=== PATIENT | female | born 1975 | race Two or more races ===

== ENCOUNTER 2021-06-25 23:17 | Emergency (ER) | payer OTHER, SELFPAY ==
--- NOTE | ~2021-06-25 | XR_ITS ---
EXAMINATION: XR CHEST CLINICAL INFORMATION: Cough for 2 weeks COMPARISON: 07.26.2018 TECHNIQUE: Frontal view of the chest was obtained. FINDINGS: Normal symmetric lung volumes. No parenchymal consolidation. No pleural effusion. No pneumothorax. Cardiomediastinal silhouette and pulmonary vascularity are within normal limits. No acute osseous abnormalities. XR/XR chest 1V IMPRESSION: No acute findings
[2021-06-25 23:42] VITALS: BP 138/83; PULSE 94; RESP 18; TEMP 36.6; O2SAT 99; BMI 38.2
[2021-06-26 00:11] LABS: COVID-19 Test Negative (Negative); IDNOW Serial# 9DD0AD1C
[2021-06-26 00:33] LABS: IDNOW Serial# 9DD0AD1C; Strep A Nucleic Acid Negative (Negative)
--- NOTE | 2021-06-26 00:53 | ED.URI ---
HPI - URI/Sore Throat General Chief Complaint: Upper Respiratory Symptoms Stated Complaint: sore throat, chest pain Time Seen by Provider: 06/26/21 00:53 Source: patient Mode of arrival: ambulatory History of Present Illness HPI Narrative: 45-year-old female presents for persistent feeling unwell, sore throat as well as headache. Otherwise, she denies any nausea, vomiting, diarrhea, urinary pain/burning/frequency shortness of breath. She does describes some chest wall discomfort when she coughs which she states has been persistent and nonproductive. She reports complete COVID-19 vaccination with [employer]. Related Data Allergies Allergy/AdvReac Type Severity Reaction Status Date / Time Penicillins [PENICILLINS] Allergy Intermediate RASH Unverified 03/04/20 16:48 penicillin V Allergy Unknown Verified 01/28/13 00:00 Review of Systems Review of Systems: Pertinent positives and negatives as stated in HPI 10 point review of systems is otherwise negative. PMFSH Past Medical History Source: nursing notes reviewed Social History Social History Advance Directives: No Advance Directives Information Provided: Yes Physical Exam Vital Signs: Vital Signs: Last Vital Signs Temp 97.8 F 06/25/21 23:42 Pulse 94 06/25/21 23:42 Resp 18 06/25/21 23:42 BP 138/83 06/25/21 23:42 Pulse Ox 99 06/25/21 23:42 BMI result Body Mass Index 38.2 VITAL SIGNS: Reviewed. GENERAL: Well developed, well nourished, in no acute distress. HEAD: Normocephalic/atraumatic EYES: PERRLA, EOMI EARS: Ext canals without abnormality, TMs non-bulging and non-erythematous NOSE: Nares patent bilateral OROPHARYNX: no oral lesions noted, posterior pharynx clear and non-erythematous without noted tonsillar enlargement/erythema/exudates NECK: Supple, no adenopathy LUNGS: Normal breath sounds. No adventitious sounds or accessory muscle use. SpO2<99> CARDIOVASCULAR: Regular rate and rhythm without noted murmurs ABDOMEN: Soft, non-tender, non-distended with bowel sounds. NEUROLOGIC: Alert and oriented x 4. Course Course Course Narrative: 45-year-old female with history and clinical presentation consistent with likely viral illness, however review of investigations is negative for evidence of COVID-19 or strep pharyngitis infection. Patient was encouraged to saline gargles and to continue to treat her cough with hekj-tss-cbumqkb medications as well as using aarn-wdt-nrjurbx Tylenol/ibuprofen for headache. MDM - URI/Sore Throat Lab Data Labs: Lab Results 06/25/21 06/26/21 Range/Units 23:51 00:17 COVID-19 (PINO) Negative (Negative) COVID-19 Clin Com See Note S. pyogenes GrpA ALSIA Negative (Negative) Discharge Plan Discharge Clinical Impression: Viral infection Patient Disposition: Home, Self-Care Instructions: Viral Syndrome (ED) Additional Instructions: 1. Continue with Tylenol/ibuprofen as needed for headaches, sore throat, temperatures greater than 100.4. 2. Increase fluid intake especially with water and recommend using [id number] NyQuil or similar cough suppressant. 3. Recommend saline gargles, 3 to 4 times a day for sore throat. Return to the ER for worsening symptoms. Referrals: Kari German MD [Primary Care Provider] - 2 days
== END 2021-06-26 01:54 | disposition home or self-care (01) ==
PROVIDERS: Emergency Provider Student in an Organized Health Care Education/Training Program; PCP Internal Medicine
DX: B34.9 Viral infection, unspecified (principal); Z20.822 Contact with and (suspected) exposure to COVID-19; J02.9 Acute pharyngitis, unspecified; R51.9 Headache, unspecified
CPT/HCPCS: 36415; 71045; 87635; 87651; 99283; 99284

== ENCOUNTER 2022-09-26 09:47 | Emergency (ER) | payer OTHER, SELFPAY ==
[2022-09-26 09:49] VITALS: BP 157/68; PULSE 104; RESP 18; TEMP 36.8; O2SAT 98; BMI 37.2
--- NOTE | 2022-09-26 10:48 | ED.GENADULT ---
HPI - General Adult General Chief complaint: General Medical Stated complaint: Ear pain/Sore throat Time Seen by Provider: 09/26/22 10:48 Source: patient Mode of arrival: ambulatory Limitations: no limitations History of Present Illness HPI narrative: Patient is a 47 year old assigned female at with no reported medical history presenting to the emergency department today with a sore throat and bilateral ear pain. Patient states that over the last 2 days she has had bilateral ear pain and a sore throat. Patient denies any dizziness, lightheadedness, abdominal pain, nausea, vomiting, fever, chills, blurry vision, double vision, loss of vision, chest pain, difficulty breathing, shortness of breath, back pain, night sweats, pain with urination, increased urinary frequency, increased urinary urgency, blood in her urine or stool, syncope or a near syncopal episode, recent trauma or falls, bowel incontinence, bladder incontinence, bowel retention, bladder retention, or any other complaints at this time. Onset (ago): day(s) (2) Severity: mild Severity scale (1-10): 3 Relieving factors: none Exacerbating factors: none Associated symptoms: denies other symptoms Treatments prior to arrival: none Related Data Allergies Allergy/AdvReac Type Severity Reaction Status Date / Time Penicillins [PENICILLINS] Allergy Intermediate RASH Unverified 03/04/20 16:48 penicillin V Allergy Unknown Verified 01/28/13 00:00 Review of Systems Constitutional: Constitutional: Reports no additional constitutional complaints, Denies chills, Denies fever(s) and Denies night sweats Eyes: Eyes: Reports no additional eye complaints, Denies blurry vision, Denies change in vision, Denies diplopia, Denies eye discharge, Denies loss of vision and Denies eye pain ENT: Denies dizziness and Reports sore throat Comments: bilateral ear pain Cardiovascular: Cardiovascular: Reports no additional cardiovascular complaints, Denies chest pain, Denies lightheadedness, Denies Loss of Consciousness and Denies dyspnea Respiratory: Respiratory: Reports no additional respiratory complaints and Denies dyspnea Gastrointestinal: Gastrointestinal: Reports no additional gastrointestinal complaints, Denies abdominal pain, Denies melena, Denies hematochezia, Denies change in bowel habits and Denies change in stool character Genitourinary: Genitourinary: Denies hematuria, Denies urinary frequency, Denies dysuria, Denies urinary incontinence, Denies urinary hesitancy and Denies urinary urgency Musculoskeletal: Musculoskeletal: Reports no additional musculoskeletal complaints, Denies numbness and Denies tingling Neurologic: Denies dizziness, Denies loss of vision, Denies numbness and Denies tingling Psychiatric: Psychiatric: Reports no additional psychiatric complaints Endocrine: Endocrine: Reports no additional endocrine complaints Hematologic/Lymphatic: Hematologic/Lymphatic: Reports no additional hematologic/lymphatic complaints Allergic/Immunologic: Allergic/Immunologic: Reports no additional allergic/immunologic complaints [facility] Past Medical History Attestation statement: The following information was validated with the patient. Source: old records reviewed and nursing notes reviewed Social History Social History Alcohol intake: unknown Smoked in Last 30 Days: No Use of substances other than those prescribed or required for medical reasons: Unknown Advance Directives: No Advance Directives Information Provided: No Patient : No Physical Exam ED Vital Signs: Vital Signs - 24 hr 09/26/22 09:49 Temperature 98.2 F Pulse Rate 104 H Respiratory Rate 18 Blood Pressure 157/68 H Pulse Oximetry 98 Oxygen Delivery Method Room Air BMI result Body Mass Index 37.2 Const General: cooperative, no acute distress, alert and awake Nutritional Appearance: well nourished Orientation/consciousness: patient oriented x3 Limitations: no limitations HENMT Head: Yes normal to inspection and Yes atraumatic Ears: hearing grossly normal bilaterally and external ears normal General nose exam: Normal external nose present, no nasal discharge noted and no epistaxis Face and sinus: Yes normal facial exam, No abrasion and No laceration Mouth: Normal oral and palatal mucosa present, no drooling and no muffled voice Throat: Yes posterior oropharynx normal and Yes tonsils normal Eyes General: appearance normal, both eyes and all related structures Periorbital: periorbital findings normal Eyelids: Yes eyelids normal Conjunctivae: conjunctivae normal Pupils: Equal, round and reactive pupils present EOM: EOMs intact bilaterally Neck Neck: Yes normal visual inspection, Yes full ROM and Yes no lymphadenopathy Chest Chest palpation & inspection: normal inspection of the chest Resp Effort & Inspection: normal respiratory effort and able to speak in complete sentences Auscultation: clear to auscultation bilaterally Cardio Rate: regular rate Rhythm: regular rhythm GI Inspection: Yes normal to inspection Palpation (GI): Soft to palpation, not firm, nontender and no guarding Neuro General: patient oriented x3 and moves all extremities Cranial nerves: Yes Equal, round and reactive pupils present Cognition (Neuro): normal cognition Motor exam (neuro): 5/5 motor strength present throughout Sensory Exam: Normal double simultaneous stimulation for sensation Coordination: [id number]-jv-jrwh test normal Extrem General: Yes normal to inspection, Yes full ROM and Yes capillary refill normal Psych Appearance: grossly normal Mental Status: mental status grossly normal Affect: normal affect Attitude: cooperative Thought process: Normal thought process present Thought content: Normal thought content present Insight: Good insight present (Psych) Medical Decision Making Medical Decision Making MDM Narrative: Patient is a 47 year old assigned female at with no reported medical history presenting to the emergency department today with bilateral ear pain and a sore throat. Patient's physical exam was unremarkable. Patient's COVID/Influenza/Strep swabs were negative. I explained my physical exam findings as well as all test results to the patient. I answered all questions asked by the patient. I stressed the importance of the patient taking her medication as prescribed. I stressed the importance of the patient following up with her primary care provider. I stressed the importance of the patient returning to the emergency department immediately if her symptoms were to worsen or if she were to develop any dizziness, shortness of breath, difficulty breathing, chest pain, blurry vision, loss of vision, nausea, vomiting, abdominal pain, fever, chills, back pain, or any other complaints. Patient verbalized agreement and understanding with this treatment plan and discharge. Differential Diagnosis Differential Diagnoses: The differential diagnosis associated with the presentation includes viral illness Lab Data [facility] Lab Attestation statement: I reviewed the patient's lab results. Labs: Lab Results 09/26/22 09/26/22 09/26/22 Range/Units 11:09 11:09 11:09 COVID-19 (PINO) Negative (Negative) COVID-19 Clin Com See Note Influenza Type A (ALISA) Negative (Negative) Influenza Type B (ALISA) Negative (Negative) Influenza A & B Note See Note S. pyogenes GrpA ALISA Negative (Negative) Discharge Plan Discharge Clinical Impression: Viral illness Patient Disposition: Home, Self-Care Instructions: Viral Syndrome (ED) Additional Instructions: I recommend starting a daily anti-histamine like loratidine. Follow up with your primary care provider. Return to the emergency department immediately if your symptoms worsen or if you develop any dizziness, shortness of breath, difficulty breathing, chest pain, blurry vision, loss of vision, nausea, vomiting, abdominal pain, fever, chills, back pain, or any other complaints. Referrals: Kari German MD [Primary Care Provider] - Stand Alone Forms: Work/School Release Interventions: ED Discharge Assessment Last Done: 09/26/22 12:12 Discharge Date/Time: 09/26/22 12:12 Print Language: Chilean
[2022-09-26 11:38] LABS: COVID-19 Test Negative (Negative); IDNOW Serial# 55D5AD1C; IDNOW Serial# BCCEAD1C; Influenza A Negative (Negative); Influenza B2 Negative (Negative)
[2022-09-26 11:52] LABS: IDNOW Serial# 6674DD1D; Strep A Nucleic Acid Negative (Negative)
== END 2022-09-26 12:12 | disposition home or self-care (01) ==
PROVIDERS: Physician Assistant Medical; Emergency Provider Emergency Medicine; PCP Internal Medicine
DX: B34.9 Viral infection, unspecified (principal); J02.8 Acute pharyngitis due to other specified organisms; H92.03 Otalgia, bilateral; Z20.822 Contact with and (suspected) exposure to COVID-19; Z20.828 Contact with and (suspected) exposure to other viral communicable diseases
CPT/HCPCS: 87502; 87635; 87651; 99283; 99284

== ENCOUNTER 2022-11-03 00:08 | Emergency (ER) | payer OTHER, SELFPAY ==
--- NOTE | 2022-11-03 | ECG_ITS ---
Test Reason : CHEST PAIN Blood Pressure : / mmHG Vent. Rate : 092 BPM Atrial Rate : 092 BPM P-R Int : 134 ms QRS Dur : 088 ms QT Int : 360 ms P-R-T Axes : 061 013 016 degrees QTc Int : 445 ms Normal sinus rhythm Normal ECG When compared with ECG of 26-JUL-2018 00:08, Criteria for Anterior infarct are no longer Present Nonspecific T wave abnormality no longer evident in Anterior leads Referred By: Generic ED Physician Electronically Signed By:Laron Valentin
--- NOTE | ~2022-11-03 | XR_ITS ---
EXAMINATION: XR CHEST CLINICAL INFORMATION: Chest pain COMPARISON: 06/26/2021 TECHNIQUE: 2 views of the chest were obtained. FINDINGS: Normal symmetric lung volumes. No parenchymal consolidation. No pleural effusion. No pneumothorax. Cardiomediastinal silhouette and pulmonary vascularity are within normal limits. No acute osseous abnormalities. XR/XR chest 2V IMPRESSION: No acute findings
[2022-11-03 00:14] VITALS: BP 167/84; PULSE 102; RESP 20; TEMP 36.2; O2SAT 100; BMI 38.7
[2022-11-03 00:34] LABS: Glucose, Whole Blood 193 mg/dL (60-115)
[2022-11-03 00:37] LABS: Basophils Percent Auto 0.3 % (0-2); Eosinophils Absolute Auto 0.2 X10*3/uL (0.0-0.4); Eosinophils Percent Auto 2.6 % (0-4); Hematocrit 40.2 % (37.0-47.0); Hemoglobin 12.9 g/dl (12.0-16.0); Imm Gran Abs Auto 0.02 X10*3/uL (0.00-0.03); Imm Gran Pct Auto 0.3 % (0.0-0.4); Lymphocytes Absolute Auto 2.6 X10*3/uL (1.2-4.9); Lymphocytes Percent Auto 35.7 % (20-40); MANUAL DIFF FLAG NO; Mean Corpuscular HGB Conc 32.1 g/dl (31.0-35.0); Mean Corpuscular Volume 84.1 fL (80.0-98.0); Mean Platelet Volume 9.5 fL (9.4-12.3); Monocytes Absolute Auto 0.4 X10*3/uL (0.1-1.2); Monocytes Percent Auto 5.2 % (2-11); Neutrophils Absolute Auto 4.1 x10*3/uL (2.0-8.3); Neutrophils Percent Auto 55.9 % (45-73); Platelet Count 236 X10*3/uL (160-400); Red Blood Count 4.78 X10*6/uL (4.20-5.50); Red Cell Distribution Width 13.8 % (11.0-16.0); White Blood Count 7.3 X10*3/uL (4.8-10.8)
[2022-11-03 00:46] VITALS: BP 118/78; PULSE 96; RESP 16; O2SAT 99
--- NOTE | 2022-11-03 00:49 | PC.NURSE ---
Pt ca&ox3, no signs of distress. Pt denies pain and sob but reports chest pressure/heaviness. Spouse at bedside. Pt taken to CT scan. Will continue to monitor.
[2022-11-03 00:54] LABS: Anion Gap 15 (12-20); Blood Urea Nitrogen 22 mg/dL (9-16); Calcium 9.3 mg/dL (8.4-10.2); Carbon Dioxide 27 mmol/L (22-29); Chloride 104 mmol/L (96-108); Creatinine Clr Calc Pharmacy 96.6; Estimated Glomerular Filt Rate > 60; Glucose Random 174 mg/dL (60-115); Potassium 4.7 mmol/L (3.3-5.1); Sodium 141 mmol/L (135-145)
--- NOTE | 2022-11-03 01:03 | PC.NURSE ---
Pt ca&ox3, ambulates with steady gait. No signs of distress. Pt requesting to use the bathroom. Urine sample req. Will continue to monitor.
[2022-11-03 01:06] LABS: Troponin-I High Sensitivity < 2.7 ng/L (<3.5-17.0)
--- NOTE | 2022-11-03 01:15 | PC.NURSE ---
Urine sample collected. No signs of distress. Pt ca&ox3. Will continue to monitor.
[2022-11-03 01:19] LABS: Appearance Urine Clear; Color Urine Yellow; Glucose Urine UA Negative (Negative); Leukocyte Esterase Urine Negative (Negative); Nitrite Urine Negative (Negative); PH 6.5 (5.0-9.0); Specific Gravity - Urine >= 1.030 (1.005-1.025); Urine Blood Negative (Negative); Urine Ketones Trace mg/dL (Negative); Urine Protein Negative (Neg-Trace)
[2022-11-03 01:22] LABS: Bacteria Urine None Seen (None Seen); Hyaline Casts Urine 0-2 /LPF (0-2); RBC Urine 0-2 /HPF (0-2); Squamous Epithelial Cell Urine 0-2 /HPF (0-2); WBC Urine 0-5 /HPF (0-5)
--- NOTE | 2022-11-03 01:33 | ED.CHESTPAIN ---
HPI - Chest Pain General Chief Complaint: Chest Pain Stated Complaint: Chest pain, diabetic Time Seen by Provider: 11/03/22 00:57 History of Present Illness HPI narrative: Patient is a 47-year-old female presents today with having chest pain. The chest pain is constant. It is over the left chest. It is dull in nature and is not related to shortness of breath. No diaphoresis. Patient has a history of diabetes. History of hypertension. History of having a stress test done 2 years ago which was grossly negative. No fever no chills. No coughing or congestion upper respiratory symptoms. No diaphoresis. Patient is from home. Not made worse with position. Not made worse with touch. Not worse with deep breath. Related Data Allergies Allergy/AdvReac Type Severity Reaction Status Date / Time Penicillins [PENICILLINS] Allergy Intermediate RASH Verified 11/03/22 00:14 penicillin V Allergy Unknown Rash Verified 11/03/22 00:14 Review of Systems Review of Systems: Positive chest pain Yes all other systems are reviewed and are negative [facility] Past Medical History Attestation statement: The following information was validated with the patient. Social History Social History Alcohol intake: unknown Smoked in Last 30 Days: No Use of substances other than those prescribed or required for medical reasons: No Advance Directives: No Advance Directives Information Provided: Yes Patient : No Physical Exam Vital Signs: Vital Signs: Last Vital Signs Temp 97.2 F 11/03/22 00:14 Pulse 96 11/03/22 00:46 Resp 16 11/03/22 00:46 BP 118/78 11/03/22 00:46 Pulse Ox 99 11/03/22 00:46 O2 Del Method Room Air 11/03/22 00:46 BMI result Body Mass Index 38.7 Appearance: Alert. Oriented X3. No acute distress. Eyes: Pupils equal, round and reactive to light. ENT: Pharynx normal. Neck: Normal inspection. Neck supple. No lymph nodes noted. No crepitus CVS: Normal heart rate and rhythm. Pulses normal. Normal S1 and S2 Respiratory: No respiratory distress. Breath sounds normal. No Wheezing. No rales Abdomen: Soft and nontender. No rigidity. No distention. good BS x4 Skin: Skin warm and dry. Normal skin color. Normal skin turgor. Extremities: No lower extremity edema. Neurovascular intact to all extremities. No Lacerations. No Rash Neuro: Oriented X 3. No motor deficit. No sensory deficit. Moving all extermities. No slurred speech Medical Decision Making Medical Decision Making [facility] Narrative: Well-appearing not acute distress. Patient's chest pain atypical for ACS. She is 47 years old he does have a history of diabetes and high blood pressure. Patient's cardiac enzymes are negative. My interpretation patient's EKG showed a sinus pattern heart rate is 80 NH QRS QT within normal limits is no acute ST segment elevation. Patient's heart score is a 3. Will have patient closely follow up on an outpatient basis. A 2nd set of troponin will be drawn. Patient's chest x-ray showed no pneumonia no pneumothorax. History not consistent with PE. History not consistent with having reflux. She is currently in stable condition Do sets of heart enzymes are negative. Making patient's case for ACS even less likely. Will discharge patient home. Currently in stable condition. Differential Diagnosis Differential Diagnoses: The differential diagnosis associated with the presentation includes ACS, PE, pneumonia, pneumothorax Lab Data [facility] Lab Attestation statement: I reviewed the patient's lab results. 11/03/22 00:32 11/03/22 00:32 Labs: Lab Results 11/03/22 11/03/22 11/03/22 Range/Units 00:29 00:32 00:32 WBC 7.3 (4.8-10.8) X10*3/uL RBC 4.78 (4.20-5.50) X10*6/uL Hgb 12.9 (12.0-16.0) g/dl Hct 40.2 (37.0-47.0) % MCV 84.1 (80.0-98.0) fL MCH 27.0 (27.0-33.0) pg MCHC 32.1 (31.0-35.0) g/dl RDW 13.8 (11.0-16.0) % Plt Count 236 (160-400) X10*3/uL MPV 9.5 (9.4-12.3) fL Immature Gran % (Auto) 0.3 (0.0-0.4) % Neut % (Auto) 55.9 (45-73) % Lymph % (Auto) 35.7 (20-40) % Henderson % (Auto) 5.2 (2-11) % Eos % (Auto) 2.6 (0-4) % Baso % (Auto) 0.3 (0-2) % Lymph # (Auto) 2.6 (1.2-4.9) X10*3/uL Henderson # (Auto) 0.4 (0.1-1.2) X10*3/uL Eos # (Auto) 0.2 (0.0-0.4) X10*3/uL Baso # (Auto) 0.0 (0.0-0.2) X10*3/uL Abs Immat Gran (auto) 0.02 (0.00-0.03) X10*3/uL Absolute Neuts (auto) 4.1 (2.0-8.3) x10*3/uL Absolute Nucleated RBC 0.000 (0.0-0.012) X10*3/uL Nucleated RBC % (auto) 0.0 (0.0-0.2) /100WBC Sodium 141 (135-145) mmol/L Potassium 4.7 (3.3-5.1) mmol/L Chloride 104 (96-108) mmol/L Carbon Dioxide 27 (22-29) mmol/L Anion Gap 15 (12-20) BUN 22 H (9-16) mg/dL Creatinine 0.88 (0.5-1.4) mg/dL Estim Creat Clear Calc 96.6 Estimated GFR > 60 POC Glucose 193 H (60-115) mg/dL Random Glucose 174 H (60-115) mg/dL Calcium 9.3 (8.4-10.2) mg/dL Troponin I High Sens (<3.5-17.0) ng/L Urine Color Urine Appearance Urine pH (5.0-9.0) Ur Specific Thurston (1.005-1.025) Urine Protein (Neg-Trace) mg/dL Urine Glucose (UA) (Negative) mg/dL Urine Ketones (Negative) mg/dL Urine Blood (Negative) Urine Nitrite (Negative) Ur Leukocyte Esterase (Negative) Urine RBC (0-2) /HPF Urine WBC (0-5) /HPF Ur Squamous Epith Cells (0-2) /HPF Urine Bacteria (None Seen) Hyaline Casts (0-2) /LPF 05/19/23 05/19/23 05/19/23 Range/Units 00:32 01:11 02:08 WBC (4.8-10.8) X10*3/uL RBC (4.20-5.50) X10*6/uL Hgb (12.0-16.0) g/dl Hct (37.0-47.0) % MCV (80.0-98.0) fL MCH (27.0-33.0) pg MCHC (31.0-35.0) g/dl RDW (11.0-16.0) % Plt Count (160-400) X10*3/uL MPV (9.4-12.3) fL Immature Gran % (Auto) (0.0-0.4) % Neut % (Auto) (45-73) % Lymph % (Auto) (20-40) % Henderson % (Auto) (2-11) % Eos % (Auto) (0-4) % Baso % (Auto) (0-2) % Lymph # (Auto) (1.2-4.9) X10*3/uL Henderson # (Auto) (0.1-1.2) X10*3/uL Eos # (Auto) (0.0-0.4) X10*3/uL Baso # (Auto) (0.0-0.2) X10*3/uL Abs Immat Gran (auto) (0.00-0.03) X10*3/uL Absolute Neuts (auto) (2.0-8.3) x10*3/uL Absolute Nucleated RBC (0.0-0.012) X10*3/uL Nucleated RBC % (auto) (0.0-0.2) /100WBC Sodium (135-145) mmol/L Potassium (3.3-5.1) mmol/L Chloride (96-108) mmol/L Carbon Dioxide (22-29) mmol/L Anion Gap (12-20) BUN (9-16) mg/dL Creatinine (0.5-1.4) mg/dL Estim Creat Clear Calc Estimated GFR POC Glucose (60-115) mg/dL Random Glucose (60-115) mg/dL Calcium (8.4-10.2) mg/dL Troponin I High Sens < 2.7 < 2.7 (<3.5-17.0) ng/L Urine Color Yellow Urine Appearance Clear Urine pH 6.5 (5.0-9.0) Ur Specific Thurston >= 1.030 H (1.005-1.025) Urine Protein Negative (Neg-Trace) mg/dL Urine Glucose (UA) Negative (Negative) mg/dL Urine Ketones Trace (Negative) mg/dL Urine Blood Negative (Negative) Urine Nitrite Negative (Negative) Ur Leukocyte Esterase Negative (Negative) Urine RBC 0-2 (0-2) /HPF Urine WBC 0-5 (0-5) /HPF Ur Squamous Epith Cells 0-2 (0-2) /HPF Urine Bacteria None Seen (None Seen) Hyaline Casts 0-2 (0-2) /LPF Independent Interpretation I performed an independent interpretation of an: EKG and Plain X-Ray Interpretation: Sinus rhythm heart rate is 80 NH QRS QT within normal limits is no acute ST segment elevation. Chest x-ray is grossly negative for pneumonia pneumothorax Chronic Conditions Patient?s care impacted by: Diabetes and Hypertension Discharge Plan Discharge Clinical Impression: Chest pain Patient Disposition: Home, Self-Care Instructions: Chest Pain (ED) Referrals: Laron Valentin MD [Physician] - 11/06/22
--- NOTE | 2022-11-03 02:30 | PC.NURSE ---
Pt resting comfortably. No signs of distress. Spouse at bedside. Will continue to monitor.
[2022-11-03 02:37] LABS: Troponin-I High Sensitivity < 2.7 ng/L (<3.5-17.0)
--- NOTE | 2022-11-03 03:41 | PC.NURSE ---
Pt sleeping comfortably, no signs of distress. Will continue to monitor.
== END 2022-11-03 04:08 | disposition home or self-care (01) ==
PROVIDERS: Emergency Provider Emergency Medicine Emergency Medical Services; PCP Internal Medicine
DX: R07.89 Other chest pain (principal); E11.9 Type 2 diabetes mellitus without complications; I10 Essential (primary) hypertension; Z79.899 Other long term (current) drug therapy
CPT/HCPCS: 36415; 71046; 80048; 81001; 82947; 84484; 85025; 93005; 96360; 96361; 99284; 99285

== ENCOUNTER 2022-11-12 00:48 | Emergency (ER) | payer OTHER, SELFPAY ==
--- NOTE | ~2022-11-12 | XR_ITS ---
EXAMINATION: XR CHEST CLINICAL INFORMATION: Right lower chest discomfort. COMPARISON: 11/03/2022 TECHNIQUE: 2 views of the chest were obtained. FINDINGS: No significant abnormality is noted involving the heart, lungs, mediastinum, bony thorax or soft tissues. XR/XR chest 2V IMPRESSION: Unremarkable examination.
[2022-11-12 00:54] VITALS: BP 143/93; PULSE 100; RESP 18; TEMP 36.4; O2SAT 98; BMI 38.7
--- NOTE | 2022-11-12 01:23 | ED.GENADULT ---
HPI - General Adult General Chief complaint: Abdominal Pain Stated complaint: Pain on right side mid back Time Seen by Provider: 11/12/22 01:10 Source: patient Mode of arrival: ambulatory History of Present Illness HPI narrative: 47-year-old female who was seen here recently, 11/03, presents with 5 days of right posterior chest discomfort that worsens with deep inspiration and coughing but patient denies any traumatic injury or falls and endorses a previous history at [facility] where in she reports 3 small incisions in the anterior abdomen that sounds like laparoscopic surgery with gallbladder related but patient does not know whether not she had her gallbladder removed. This in discomfort that she has been experiencing radiates from the right posterior are around to the anterior aspect and not associated with any fever, chills a patient states she has had some nausea. Otherwise, she denies any changes in appetite has continued to pass flatus and have regular bowel movements and denies any urinary pain/burning/frequency. Related Data Previous Rx's Medication Instructions Recorded ketorolac 10 mg tablet 10 mg PO Q6H PRN pain 5 days #20 11/12/22 tabs Allergies Allergy/AdvReac Type Severity Reaction Status Date / Time Penicillins [PENICILLINS] Allergy Intermediate RASH Verified 11/03/22 00:14 penicillin V Allergy Unknown Rash Verified 11/03/22 00:14 Review of Systems Review of Systems: Pertinent positives and negatives as stated in HPI [facility] Past Medical History Source: nursing notes reviewed Social History Social History Alcohol intake: current Alcohol intake frequency: holidays/special occasions only Smoked in Last 30 Days: No Use of substances other than those prescribed or required for medical reasons: No Advance Directives: No Advance Directives Information Provided: Yes Patient : No Physical Exam ED Vital Signs: Vital Signs - 24 hr 11/12/22 00:54 Temperature 97.5 F Pulse Rate 100 Respiratory Rate 18 Blood Pressure 143/93 H Pulse Oximetry 98 Oxygen Delivery Method Room Air BMI result Body Mass Index 38.7 VITAL SIGNS: Reviewed. GENERAL: Well developed, well nourished, in no acute distress. HEAD: Normocephalic/atraumatic EYES: PERRLA, EOMI EARS: Ext canals without abnormality NOSE: Nares patent bilateral OROPHARYNX: no oral lesions noted, posterior pharynx clear NECK: Supple, no adenopathy LUNGS: Normal breath sounds. No adventitious sounds or accessory muscle use. SpO2<98> CARDIOVASCULAR: Regular rate and rhythm without noted murmurs ABDOMEN: Soft, non-tender, non-distended with bowel sounds, no CVA tenderness, soft tissue tenderness on palpation without appreciation of mass. MUSCULOSKELETAL: No tenderness, deformities, or effusions noted on gross inspection. EXTREMITIES: No cyanosis, clubbing or edema. SKIN: Inspection of the skin reveals no rashes NEUROLOGIC: Alert and oriented x 4. Strength and sensation to light touch were grossly intact x 4. Medical Decision Making Medical Decision Making MDM Narrative: 47-year-old female without evidence of infectious etiology, has had the discomfort for for 5 days, no bowel or bladder symptoms I suspect that this is musculoskeletal in nature but will pursue urinalysis/U preg as well as a two-view chest x-ray and likely follow that with combination analgesics and instructions for patient to follow-up with her primary care provider. She recently had laboratory workup on 11/03 that time all lab work appeared to be well within normal limits. I reviewed all investigations and my interpretation is that this is likely musculoskeletal, all results discussed with patient bedside she was otherwise discharged home in stable condition. Differential Diagnosis Please see the discussion above Lab Data Please see the discussion above Labs: Lab Results 11/12/22 11/12/22 Range/Units 01:24 01:24 Urine Color Yellow Urine Appearance Cloudy Urine pH 6.0 (5.0-9.0) Ur Specific [place] >= 1.030 H (1.005-1.025) Urine Protein Negative (Neg-Trace) mg/dL Urine Glucose (UA) Negative (Negative) mg/dL Urine Ketones Trace (Negative) mg/dL Urine Blood Negative (Negative) Urine Nitrite Negative (Negative) Ur Leukocyte Esterase Negative (Negative) Urine Test NEGATIVE (NEGATIVE) Radiology Impression Radiologist Impression: My interpretation is in agreement with radiology's impression External Record Review External record reviewed: Prior outpatient labs Chronic Conditions Patient?s care impacted by: Diabetes Discharge Plan Discharge Clinical Impression: Right flank pain, Musculoskeletal pain Patient Disposition: Home, Self-Care Instructions: Musculoskeletal Pain (ED), Flank Pain (ED) Additional Instructions: 1. Tylenol 1000 mg, orally, every 6 hours as needed for pain control. Do not exceed 4000 mg within 24 hours. 2. Lidocaine patch, apply to area of maximal tenderness as directed on the outside packaging. 3. Continue drink plenty of fluids and follow-up with your primary care provider on Sunday. Return to the ER for any worsening of symptoms. Prescriptions: New ketorolac 10 mg tablet 10 mg PO Q6H PRN (Reason: pain) 5 Days Qty: 20 0RF Rx Instructions: Patient received Toradol in the emergency room. Referrals: Kari German MD [Primary Care Provider] -
[2022-11-12 01:35] LABS: Appearance Urine Cloudy; Color Urine Yellow; Glucose Urine UA Negative (Negative); Leukocyte Esterase Urine Negative (Negative); Nitrite Urine Negative (Negative); Specific Gravity - Urine >= 1.030 (1.005-1.025); Urine Blood Negative (Negative); Urine Ketones Trace mg/dL (Negative); Urine Protein Negative (Neg-Trace)
[2022-11-12 01:38] LABS: UPreg QC Valid YES; Urine Pregnancy NEGATIVE (NEGATIVE)
[2022-11-12] MEDS: Acetaminophen 325 MG TABLET 975 MG PO (03:03)
[2022-11-12] MEDS: Lidocaine 4 % Patch ADH..PATCH 1 PATCH TRANSDERMA (03:04)
[2022-11-12] MEDS: Ketorolac Tromethamine 15 MG/ML VIAL IM (03:04)
== END 2022-11-12 03:11 | disposition home or self-care (01) ==
PROVIDERS: Emergency Provider Student in an Organized Health Care Education/Training Program; PCP Internal Medicine
DX: R07.89 Other chest pain (principal); M54.50 Low back pain, unspecified; M79.10 Myalgia, unspecified site; Z79.899 Other long term (current) drug therapy
CPT/HCPCS: 71046; 81003; 81025; 96372; 99284; J1885

== ENCOUNTER 2023-04-29 23:22 | Emergency (ER) | payer OTHER, SELFPAY ==
[2023-04-29 23:32] VITALS: BP 151/81; PULSE 100; RESP 18; TEMP 36.6; O2SAT 96; BMI 38.3
[2023-04-29 23:36] LABS: Glucose, Whole Blood 175 mg/dL (60-115)
[2023-04-30 00:22] VITALS: BP 125/77; PULSE 97; RESP 14; TEMP 36.8; O2SAT 98
[2023-04-30 00:43] LABS: MANUAL DIFF FLAG NO
[2023-04-30 00:51] LABS: Basophils Percent Auto 0.4 % (0-2); Eosinophils Absolute Auto 0.2 X10*3/uL (0.0-0.4); Eosinophils Percent Auto 2.2 % (0-4); Hemoglobin 12.5 g/dl (12.0-16.0); Imm Gran Abs Auto 0.04 X10*3/uL (0.00-0.03); Imm Gran Pct Auto 0.5 % (0.0-0.4); Lymphocytes Absolute Auto 2.4 X10*3/uL (1.2-4.9); Lymphocytes Percent Auto 31.4 % (20-40); Mean Corpuscular HGB Conc 32.1 g/dl (31.0-35.0); Mean Corpuscular Hemoglobin 26.5 pg (27.0-33.0); Mean Corpuscular Volume 82.6 fL (80.0-98.0); Mean Platelet Volume 9.6 fL (9.4-12.3); Monocytes Absolute Auto 0.3 X10*3/uL (0.1-1.2); Monocytes Percent Auto 4.1 % (2-11); Neutrophils Absolute Auto 4.7 x10*3/uL (2.0-8.3); Neutrophils Percent Auto 61.4 % (45-73); Platelet Count 233 X10*3/uL (160-400); Red Blood Count 4.72 X10*6/uL (4.20-5.50); Red Cell Distribution Width 13.9 % (11.0-16.0); White Blood Count 7.6 X10*3/uL (4.8-10.8)
[2023-04-30 01:00] LABS: Alanine Aminotransferase 15 U/L (0-31); Albumin Level 3.8 g/dL (3.5-5.0); Alkaline Phosphatase 110 U/L (39-117); Anion Gap 14 (12-20); Aspartate Amino Transferase 14 U/L (5-31); Bilirubin Total 0.2 mg/dL (0.0-1.0); Blood Urea Nitrogen 22 mg/dL (9-16); Calcium 9.4 mg/dL (8.4-10.2); Carbon Dioxide 25 mmol/L (22-29); Chloride 106 mmol/L (96-108); Creatinine Clr Calc Pharmacy 97.1; Estimated Glomerular Filt Rate > 60; Glucose Random 99 mg/dL (60-115); Potassium 3.5 mmol/L (3.3-5.1); Sodium 141 mmol/L (135-145)
[2023-04-30] MEDS: Dextrose 5 % 1,000 ML 125 ML IVCONT (01:18)
--- NOTE | 2023-04-30 02:15 | ED_ITS ---
HPI - General Adult General Chief complaint: General Medical Stated complaint: Took wrong insulin Time Seen by Provider: 04/30/23 00:26 Source: patient Mode of arrival: ambulatory Limitations: no limitations History of Present Illness HPI narrative: 47 yld female with pmh of DM presents to the ED for taking 34 units of lispro at 11:40pm last night. Patient suppossed to take lantus 34 at night, but instead she took the lispro. Patient is asympomatic and steve any symtposm. Related Data Previous Rx's Medication Instructions Recorded ketorolac 10 mg tablet 10 mg PO Q6H PRN pain 5 days #20 11/12/22 tabs Allergies Allergy/AdvReac Type Severity Reaction Status Date / Time Penicillins [PENICILLINS] Allergy Intermediate RASH Verified 11/03/22 00:14 penicillin V Allergy Unknown Rash Verified 11/03/22 00:14 Review of Systems 2 Review of Systems: 34 units of lispro Yes all other systems are reviewed and are negative [facility] Social History Social History Alcohol intake: current Alcohol intake frequency: holidays/special occasions only Smoked in Last 30 Days: No Use of substances other than those prescribed or required for medical reasons: No Advance Directives: No Advance Directives Information Provided: Yes Physical Exam ED Vital Signs: Vital Signs - 24 hr 04/29/23 23:32 04/30/23 00:22 04/30/23 02:37 Temperature 97.8 F 98.2 F 98.0 F Pulse Rate 100 97 97 Respiratory Rate 18 14 18 Blood Pressure 151/81 H 125/77 102/50 L Pulse Oximetry 96 98 96 Oxygen Delivery Method Room Air Room Air Room Air 04/30/23 05:27 Temperature 97.9 F Pulse Rate 97 Respiratory Rate 18 Blood Pressure 140/77 H Pulse Oximetry 98 Oxygen Delivery Method Room Air BMI result Body Mass Index 38.3 Const General: cooperative, healthy appearing, comfortable, no acute distress, well developed, alert, awake and Physically active Orientation/consciousness: oriented to person, oriented to place, oriented to time and patient oriented x3 HENMT Head: Yes normal to inspection, Yes No palpable skull fracture present, Yes normocephalic and Yes atraumatic Eyes General: appearance normal, both eyes and all related structures Neck Neck: Yes normal visual inspection, Yes full ROM, Yes no lymphadenopathy, Yes no meningeal signs, Yes trachea midline, Yes supple, No anterior neck swelling and No tender Chest Chest palpation & inspection: normal inspection of the chest and normal palpation of entire chest wall Resp Effort & Inspection: normal respiratory effort and able to speak in complete sentences Auscultation: clear to auscultation bilaterally Cardio Jugular venous distension: no JVD Heart sounds: S1 normal heart sound present and S2 normal heart sound present GI Inspection: Yes normal to inspection Palpation (GI): Soft to palpation, not firm, nontender, no guarding and not rigid General: No CVA tenderness and Yes no CVA tenderness Back/Spine/Pelvis Back: no CVA tenderness, No CVA tenderness and No back tenderness Skin General skin exam: no rashes or lesions noted, elasticity normal and turgor normal Neuro General: oriented to person, oriented to place, oriented to time, patient oriented x3, gait normal, tone normal, moves all extremities, Normal light touch and pain sensation, no meningeal signs, no focal motor deficits, CN's II-XI intact bilaterally and normal sensation to monofilament Extrem General: Yes normal to inspection and Yes full ROM Psych Appearance: grossly normal, well kempt and not disheveled Medications Administered Discontinued Medications Generic Name Dose Route Start Last Admin Trade Name Freq PRN Reason Stop Dose Admin Dextrose 1,000 mls @ 125 mls/hr 04/30/23 01:15 04/30/23 01:18 D5w IVCONT 04/30/23 09:14 125 mls/hr .Q8H STA Administration Medical Decision Making Medical Decision Making [facility] Narrative: 47 yold female with pmh of DM presents to the ED for 34 units of lipsro by accident instead of 34 units of lantus. Patient presently is asymptomatic. patient glucose on patinet's arm monitor in the ED read 75. Blood glucose states 99. patient placed Given IV D5% IV. Spoke with Dr. Calle who states lispro is short acting and mostl liekly would not need admission. He recommends watching patient in the ED for at least 4 hours. Patient given food to eat. Patient is not in distress. Differential Diagnosis Differential Diagnoses: The differential diagnosis associated with the presentation includes (hypoglycemia induced by lipsro) Admission/Observation Consideration of admission/observation: Escalation of care including admission/observation considered Consult Healthcare Provider Management of the patient was discussed with: Hospitalist (Dr. Calle) Lab Data MDM Lab Attestation statement: I reviewed the patient's lab results. 04/30/23 00:39 04/30/23 00:39 Labs: Lab Results 04/29/23 04/30/23 04/30/23 Range/Units 23:32 00:39 02:39 WBC 7.6 (4.8-10.8) X10*3/uL RBC 4.72 (4.20-5.50) X10*6/uL Hgb 12.5 (12.0-16.0) g/dl Hct 39.0 (37.0-47.0) % MCV 82.6 (80.0-98.0) fL MCH 26.5 L (27.0-33.0) pg MCHC 32.1 (31.0-35.0) g/dl RDW 13.9 (11.0-16.0) % Plt Count 233 (160-400) X10*3/uL MPV 9.6 (9.4-12.3) fL Immature Gran % (Auto) 0.5 H (0.0-0.4) % Neut % (Auto) 61.4 (45-73) % Lymph % (Auto) 31.4 (20-40) % Sac % (Auto) 4.1 (2-11) % Eos % (Auto) 2.2 (0-4) % Baso % (Auto) 0.4 (0-2) % Lymph # (Auto) 2.4 (1.2-4.9) X10*3/uL Sac # (Auto) 0.3 (0.1-1.2) X10*3/uL Eos # (Auto) 0.2 (0.0-0.4) X10*3/uL Baso # (Auto) 0.0 (0.0-0.2) X10*3/uL Abs Immat Gran (auto) 0.04 H (0.00-0.03) X10*3/uL Absolute Neuts (auto) 4.7 (2.0-8.3) x10*3/uL Absolute Nucleated RBC 0.000 (0.0-0.012) X10*3/uL Nucleated RBC % (auto) 0.0 (0.0-0.2) /100WBC Sodium 141 (135-145) mmol/L Potassium 3.5 D (3.3-5.1) mmol/L Chloride 106 (96-108) mmol/L Carbon Dioxide 25 (22-29) mmol/L Anion Gap 14 (12-20) BUN 22 H (9-16) mg/dL Creatinine 0.84 (0.5-1.4) mg/dL Estim Creat Clear Calc 97.1 Estimated GFR > 60 POC Glucose 175 H 137 H (60-115) mg/dL Random Glucose 99 (60-115) mg/dL Calcium 9.4 (8.4-10.2) mg/dL Total Bilirubin 0.2 (0.0-1.0) mg/dL AST 14 (5-31) U/L ALT 15 (0-31) U/L Alkaline Phosphatase 110 (39-117) U/L Total Protein 7.0 (6.5-8.0) g/dL Albumin 3.8 (3.5-5.0) g/dL 04/30/23 04/30/23 Range/Units 04:06 05:31 WBC (4.8-10.8) X10*3/uL RBC (4.20-5.50) X10*6/uL Hgb (12.0-16.0) g/dl Hct (37.0-47.0) % MCV (80.0-98.0) fL MCH (27.0-33.0) pg MCHC (31.0-35.0) g/dl RDW (11.0-16.0) % Plt Count (160-400) X10*3/uL MPV (9.4-12.3) fL Immature Gran % (Auto) (0.0-0.4) % Neut % (Auto) (45-73) % Lymph % (Auto) (20-40) % Sac % (Auto) (2-11) % Eos % (Auto) (0-4) % Baso % (Auto) (0-2) % Lymph # (Auto) (1.2-4.9) X10*3/uL Sac # (Auto) (0.1-1.2) X10*3/uL Eos # (Auto) (0.0-0.4) X10*3/uL Baso # (Auto) (0.0-0.2) X10*3/uL Abs Immat Gran (auto) (0.00-0.03) X10*3/uL Absolute Neuts (auto) (2.0-8.3) x10*3/uL Absolute Nucleated RBC (0.0-0.012) X10*3/uL Nucleated RBC % (auto) (0.0-0.2) /100WBC Sodium (135-145) mmol/L Potassium (3.3-5.1) mmol/L Chloride (96-108) mmol/L Carbon Dioxide (22-29) mmol/L Anion Gap (12-20) BUN (9-16) mg/dL Creatinine (0.5-1.4) mg/dL Estim Creat Clear Calc Estimated GFR POC Glucose 161 H 182 H (60-115) mg/dL Random Glucose (60-115) mg/dL Calcium (8.4-10.2) mg/dL Total Bilirubin (0.0-1.0) mg/dL AST (5-31) U/L ALT (0-31) U/L Alkaline Phosphatase (39-117) U/L Total Protein (6.5-8.0) g/dL Albumin (3.5-5.0) g/dL External Record Review External record reviewed: Other (Prior ED visits) Discharge Plan Discharge Clinical Impression: Accidental drug ingestion, Hypoglycemia due to insulin Patient Disposition: Home, Self-Care Instructions: Hypoglycemia in a Person with Diabetes (ED) Additional Instructions: Please follow-up with your primary care. call him tomorrow to make him aware of accidental ingestion of Lispro 34 units. return to the ED immediately for any nausea, vomiting, cold sweats, dizziness, seizure, altered mental status, or any other concerning symptoms. Prescriptions: No Action ketorolac 10 mg tablet 10 mg PO Q6H PRN (Reason: pain) 5 Days Qty: 20 0RF Rx Instructions: Patient received Toradol in the emergency room. Interventions: ED Discharge Assessment Last Done: 04/30/23 05:51 Discharge Date/Time: 04/30/23 05:52 Print Language: Cymro
[2023-04-30 02:37] VITALS: BP 102/50; PULSE 97; RESP 18; TEMP 36.7; O2SAT 96
[2023-04-30 02:43] LABS: Glucose, Whole Blood 137 mg/dL (60-115)
[2023-04-30 04:09] LABS: Glucose, Whole Blood 161 mg/dL (60-115)
[2023-04-30 05:27] VITALS: BP 140/77; PULSE 97; RESP 18; TEMP 36.6; O2SAT 98
[2023-04-30 05:34] LABS: Glucose, Whole Blood 182 mg/dL (60-115)
== END 2023-04-30 05:52 | disposition home or self-care (01) ==
PROVIDERS: Physician Assistant; Emergency Provider Emergency Medicine; PCP Internal Medicine
DX: E11.649 Type 2 diabetes mellitus with hypoglycemia without coma (principal); T38.3X5A Adverse effect of insulin and oral hypoglycemic [antidiabetic] drugs, initial encounter; Y92.9 Unspecified place or not applicable
CPT/HCPCS: 36415; 80053; 82947; 85025; 99284

== ENCOUNTER 2023-07-25 21:21 | Emergency (ER) | payer OTHER, SELFPAY ==
--- NOTE | 2023-07-25 | ECG_ITS ---
Test Reason : tacy/headache Blood Pressure : / mmHG Vent. Rate : 099 BPM Atrial Rate : 099 BPM P-R Int : 126 ms QRS Dur : 090 ms QT Int : 350 ms P-R-T Axes : 050 003 008 degrees QTc Int : 449 ms Normal sinus rhythm Possible Anterior infarct , age undetermined Abnormal ECG When compared with ECG of 03-NOV-2022 00:23, Borderline criteria for Anterior infarct are now Present Referred By: Generic ED Physician Electronically Signed By:KERMIT FAROOQ
[2023-07-25 21:39] VITALS: BP 156/106; PULSE 106; RESP 18; TEMP 36; O2SAT 98; BMI 38.7
[2023-07-25 22:30] LABS: MANUAL DIFF FLAG NO
[2023-07-25 22:31] LABS: Basophils Percent Auto 0.5 % (0-2); Eosinophils Absolute Auto 0.2 X10*3/uL (0.0-0.4); Eosinophils Percent Auto 3.4 % (0-4); Hematocrit 39.6 % (37.0-47.0); Hemoglobin 12.9 g/dl (12.0-16.0); Imm Gran Abs Auto 0.02 X10*3/uL (0.00-0.03); Imm Gran Pct Auto 0.3 % (0.0-0.4); Lymphocytes Absolute Auto 2.3 X10*3/uL (1.2-4.9); Lymphocytes Percent Auto 37.1 % (20-40); Mean Corpuscular HGB Conc 32.6 g/dl (31.0-35.0); Mean Corpuscular Hemoglobin 26.3 pg (27.0-33.0); Mean Corpuscular Volume 80.7 fL (80.0-98.0); Mean Platelet Volume 9.6 fL (9.4-12.3); Monocytes Absolute Auto 0.3 X10*3/uL (0.1-1.2); Monocytes Percent Auto 4.5 % (2-11); Neutrophils Absolute Auto 3.4 x10*3/uL (2.0-8.3); Neutrophils Percent Auto 54.2 % (45-73); Platelet Count 268 X10*3/uL (160-400); Red Blood Count 4.91 X10*6/uL (4.20-5.50); Red Cell Distribution Width 13.6 % (11.0-16.0); White Blood Count 6.2 X10*3/uL (4.8-10.8)
[2023-07-25 22:48] LABS: Alanine Aminotransferase 13 U/L (0-31); Albumin Level 3.8 g/dL (3.5-5.0); Alkaline Phosphatase 112 U/L (39-117); Anion Gap 13 (12-20); Aspartate Amino Transferase 15 U/L (5-31); Bilirubin Total 0.2 mg/dL (0.0-1.0); Blood Urea Nitrogen 18 mg/dL (9-16); Calcium 9.7 mg/dL (8.4-10.2); Carbon Dioxide 27 mmol/L (22-29); Chloride 103 mmol/L (96-108); Creatinine Clr Calc Pharmacy 96.6; Estimated Glomerular Filt Rate > 60; Glucose Random 154 mg/dL (60-115); Potassium 3.7 mmol/L (3.3-5.1); Sodium 139 mmol/L (135-145); Total Protein 7.6 g/dL (6.5-8.0)
[2023-07-25 23:17] LABS: COVID-19 Test Negative (Negative); IDNOW Serial# 08D9AD1C; IDNOW Serial# 152EDE1D; Influenza A Negative (Negative); Influenza B2 Negative (Negative)
[2023-07-25 23:56] VITALS: BP 150/89; PULSE 102; RESP 14; TEMP 36.8; O2SAT 95
--- NOTE | 2023-07-26 01:22 | PC.NURSE ---
Pt ca&ox4, no signs of distress. Pt reports 8/10 headache with dizziness and head pressure onset 5 days ago. Pt reports taking tylenol with some relief but headache returns. Pt denies n/v/sob Pts at bedside. Lights dimmed for comfort. Vitals stable. Call rios given to pt. Plan of care ongoing.
--- NOTE | 2023-07-26 01:53 | ED_ITS ---
HPI - General Adult General Chief complaint: Headache Stated complaint: Bad headache x4 days, throbbing, dizziness Time Seen by Provider: 07/26/23 01:45 History of Present Illness HPI narrative: The patient is a 48-year-old female with a history of type 2 diabetes on insulin who presents with a headache. She says that about 4 or 5 days ago she had a headache that started as a regular headache but has gradually gotten significantly worse and has been associated with a sense of dizziness particularly when she bends over. She has had no fever, sweats, chills. No particular nausea or vomiting. Mild photophobia. She says that she sometimes gets headaches but has never had a headache that has brought her to the emergency room before. No signs of neck stiffness or sore throat. Related Data Previous Rx's Medication Instructions Recorded ketorolac 10 mg tablet 10 mg PO Q6H PRN pain 5 days #20 11/12/22 tabs Allergies Allergy/AdvReac Type Severity Reaction Status Date / Time Penicillins [PENICILLINS] Allergy Intermediate RASH Verified 07/25/23 21:39 penicillin V Allergy Unknown Rash Verified 07/25/23 21:39 Review of Systems 2 Review of Systems: Yes all other systems are reviewed and are negative [facility] Social History Social History Alcohol intake: current Alcohol intake frequency: holidays/special occasions only Smoked in Last 30 Days: No Use of substances other than those prescribed or required for medical reasons: No Advance Directives: No Advance Directives Information Provided: No Physical Exam ED Vital Signs: Vital Signs - 24 hr 07/25/23 21:39 07/25/23 23:56 07/26/23 03:48 Temperature 96.8 F 98.2 F Pulse Rate 106 H 102 H 98 Respiratory Rate 18 14 18 Blood Pressure 156/106 H 150/89 H 146/86 H Pulse Oximetry 98 95 98 Oxygen Delivery Method Room Air Room Air BMI result Body Mass Index 38.7 Const Other: The patient is awake and alert. She was in a darkened room. She looks as if she feels somewhat uncomfortable. Her mental status is normal. She does not seem toxic. HENMT Other: The face is symmetrical. The posterior pharynx is unremarkable. Mucous membranes are moist. Eyes Other: Pupils are round, equal, reactive to light, extraocular movements are intact, conjunctivae are clear. Neck Other: No cervical adenopathy. No nuchal rigidity. Resp Effort & Inspection: normal respiratory effort Auscultation: clear to auscultation bilaterally Cardio Rate: regular rate Rhythm: regular rhythm Heart sounds: S1 normal heart sound present and S2 normal heart sound present Skin Other: Skin is dry and unremarkable. No rash or lesions. No diaphoresis. Neuro Other: The patient is awake and alert. She looks mildly uncomfortable but otherwise has a normal mental status and seems nontoxic. Cranial nerves 2-12 are grossly intact. She moves all 4 extremities normally and symmetrically. She is grossly neurologically intact. Extrem Other: No peripheral edema. Medications Administered Discontinued Medications Generic Name Dose Route Start Last Admin Trade Name Davideq PRN Reason Stop Dose Admin Diphenhydramine HCl 50 mg 07/26/23 01:52 07/26/23 02:19 Diphenhydramine Hcl 50 Mg/Ml Vial IVPUSH 07/26/23 01:53 50 mg ONCE ONE Administration Sodium Chloride 1,000 mls @ 999 mls/hr 07/26/23 02:00 07/26/23 03:47 Ns IV 07/26/23 03:00 Infused .Q1H1M TORSTEN Infusion Ketorolac Tromethamine 15 mg 07/26/23 01:52 07/26/23 02:19 Ketorolac Tromethamine 15 Mg/Ml Vial IVPUSH 07/26/23 01:53 15 mg ONCE ONE Administration Metoclopramide HCl 10 mg 07/26/23 01:52 07/26/23 02:20 Metoclopramide Hcl 10 Mg/2 Ml Vial IVPUSH 07/26/23 01:53 10 mg ONCE ONE Administration Medical Decision Making Medical Decision Making [facility] Narrative: The patient presents with a headache of several days duration. This was not a thunderclap headache. No sudden onset. No neck stiffness. No fever. I do not detect any red flags associated with this headache. The patient was treated symptomatically. She improved with ketorolac, metoclopramide, and diphenhydramine. She felt comfortable being discharged to rest at home. Lab Data 07/25/23 22:24 07/25/23 22:24 Labs: Lab Results 07/25/23 Range/Units 22:24 WBC 6.2 (4.8-10.8) X10*3/uL RBC 4.91 (4.20-5.50) X10*6/uL Hgb 12.9 (12.0-16.0) g/dl Hct 39.6 (37.0-47.0) % MCV 80.7 (80.0-98.0) fL MCH 26.3 L (27.0-33.0) pg MCHC 32.6 (31.0-35.0) g/dl RDW 13.6 (11.0-16.0) % Plt Count 268 (160-400) X10*3/uL MPV 9.6 (9.4-12.3) fL Immature Gran % (Auto) 0.3 (0.0-0.4) % Neut % (Auto) 54.2 (45-73) % Lymph % (Auto) 37.1 (20-40) % [place] % (Auto) 4.5 (2-11) % Eos % (Auto) 3.4 (0-4) % Baso % (Auto) 0.5 (0-2) % Lymph # (Auto) 2.3 (1.2-4.9) X10*3/uL [place] # (Auto) 0.3 (0.1-1.2) X10*3/uL Eos # (Auto) 0.2 (0.0-0.4) X10*3/uL Baso # (Auto) 0.0 (0.0-0.2) X10*3/uL Abs Immat Gran (auto) 0.02 (0.00-0.03) X10*3/uL Absolute Neuts (auto) 3.4 (2.0-8.3) x10*3/uL Absolute Nucleated RBC 0.000 (0.0-0.012) X10*3/uL Nucleated RBC % (auto) 0.0 (0.0-0.2) /100WBC Sodium 139 (135-145) mmol/L Potassium 3.7 (3.3-5.1) mmol/L Chloride 103 (96-108) mmol/L Carbon Dioxide 27 (22-29) mmol/L Anion Gap 13 (12-20) BUN 18 H (9-16) mg/dL Creatinine 0.87 (0.5-1.4) mg/dL Estim Creat Clear Calc 96.6 Estimated GFR > 60 Random Glucose 154 H (60-115) mg/dL Calcium 9.7 (8.4-10.2) mg/dL Total Bilirubin 0.2 (0.0-1.0) mg/dL AST 15 (5-31) U/L ALT 13 (0-31) U/L Alkaline Phosphatase 112 (39-117) U/L C-Reactive Protein 0.45 (< or = 0.50) mg/dL Total Protein 7.6 (6.5-8.0) g/dL Albumin 3.8 (3.5-5.0) g/dL COVID-19 (PINO) Negative (Negative) COVID-19 Clin Com See Note Influenza Type A (ALISA) Negative (Negative) Influenza Type B (ALISA) Negative (Negative) Influenza A & B Note See Note Discharge Plan Discharge Clinical Impression: Headache Patient Disposition: Home, Self-Care Instructions: Acute Headache (ED) Additional Instructions: Please rest and take it easy tonight. Sleep may be very therapeutic. Please plan on following up soon with your regular doctor to discuss this episode further. Return to the emergency room if you feel significantly worse Prescriptions: No Action ketorolac 10 mg tablet 10 mg PO Q6H PRN (Reason: pain) 5 Days Qty: 20 0RF Rx Instructions: Patient received Toradol in the emergency room. Referrals: Kari German MD [Primary Care Provider] - (Headache) Interventions: ED Discharge Assessment Last Done: 07/26/23 03:48 Discharge Date/Time: 07/26/23 03:49
[2023-07-26 02:16] LABS: C Reactive Protein 0.45 mg/dL (< or = 0.50)
[2023-07-26] MEDS: Ketorolac Tromethamine 15 MG/ML VIAL IVPUSH (02:19)
[2023-07-26] MEDS: diphenhydrAMINE HCL 50 MG/ML VIAL IVPUSH (02:19)
[2023-07-26] MEDS: Metoclopramide HCl 10 MG/2 ML VIAL IVPUSH (02:20)
[2023-07-26] MEDS: 0.9 % Sodium Chloride 1,000 ML 999 ML IV (02:20)
--- NOTE | 2023-07-26 02:28 | PC.NURSE ---
Pt medicated per aug. Plan of care ongoing.
[2023-07-26 03:48] VITALS: BP 146/86; PULSE 98; RESP 18; O2SAT 98
== END 2023-07-26 03:49 | disposition home or self-care (01) ==
PROVIDERS: Emergency Provider Emergency Medicine; PCP Internal Medicine
DX: R51.9 Headache, unspecified (principal); Z11.52 Encounter for screening for COVID-19
CPT/HCPCS: 80053; 85025; 86140; 87502; 87635; 93005; 96361; 96374; 96375; 99284; 99285; J1200; J1885; J2765

== ENCOUNTER → 2023-07-25 22:17 | Outpatient (BNV) | payer OTHER, SELFPAY | PROVIDERS: Emergency Provider Emergency Medicine; PCP Internal Medicine; Visit Provider Internal Medicine | DX: R00.0 Tachycardia, unspecified (principal); R94.31 Abnormal electrocardiogram [ECG] [EKG] | CPT/HCPCS: 93010 ==

== ENCOUNTER 2023-07-27 19:25 | Emergency (ER) | payer OTHER, SELFPAY ==
--- NOTE | ~2023-07-27 | CT_ITS ---
EXAMINATION: CT cervical spine wo IV con, CT head/brain wo IV con CLINICAL INFORMATION: Reason for Exam pain, hx fusion COMPARISON: MRI cervical spine on TECHNIQUE: Contiguous axial imaging was performed from the skull base to vertex without intravenous contrast. Sagittal and coronal reformatted images were obtained. CT images of the cervical spine were acquired without intravenous contrast. This CT examination was performed using dose optimization techniques as appropriate, variously including the following: * Automated exposure control * Adjustment of mA and/or kV according to patient size (this includes techniques or standardized protocols for targeted exams where dose is matched to indication/reason for exam; i.e. extremities or head) Use of iterative reconstruction technique DLP: 1412 mGy-cm FINDINGS: CT HEAD: There is no evidence of acute intracranial hemorrhage. No mass-effect or ventricular shift is noted. No acute, territorial loss of pruitt-white differentiation. Fatty deposition along the anterior interhemispheric falx. The ventricles and sulci are appropriate in size and configuration for the patient's stated age. No depressed calvarial fracture. Scattered polypoid mucosal thickening in the paranasal sinuses. The mastoid air cells are clear. CT CERVICAL SPINE: No prevertebral soft tissue swelling. The craniocervical junction is intact. Thickening of the normal cervical lordosis. Anterior cervical discectomy and fusion at C5-C7. No evidence of acute hardware complication. There is no significant spondylolisthesis. Vertebral body heights are normal without acute compression fracture. No suspicious osseous lesion. Multilevel degenerative changes of the cervical spine. Suboptimal evaluation of the thecal sac at the area of anterior fusion secondary to streak artifact. Visualized lung apices are clear. CT/CT cervical spine wo IV con IMPRESSION: No acute intracranial hemorrhage or territorial loss of pruitt-white differentiation. Prior anterior cervical discectomy and fusion at C5-C7. No acute, displaced cervical spine fracture. Multilevel degenerative changes of the cervical spine would be better evaluated on MRI.
[2023-07-27 19:34] VITALS: BP 164/98; PULSE 99; RESP 18; TEMP 36.3; O2SAT 98; BMI 41.8
--- NOTE | 2023-07-27 19:37 | ED.GENADULT ---
HPI - General Adult General Chief complaint: Headache Stated complaint: headache, dizziness, was her sunday Time Seen by Provider: 07/27/23 21:56 Source: patient Mode of arrival: ambulatory Limitations: no limitations History of Present Illness HPI narrative: Patient no history of migraine headaches comes here was headache which is going on for last 4 days was seen here 2 days ago complaining of headache all over the head without any light sensitivity no nausea no vomiting no relation of the headache with posture no blurred no fever no chills no neck pain no history of head injury Related Data Previous Rx's Medication Instructions Recorded ketorolac 10 mg tablet 10 mg PO Q6H PRN pain 5 days #20 11/12/22 tabs gmdgymkont-hoxvuyiqtbuwg-qdzoayfy 1 tab PO Q6H PRN haeadace #20 tabs 07/27/23 50 mg-325 mg-40 mg tablet Allergies Allergy/AdvReac Type Severity Reaction Status Date / Time Penicillins [PENICILLINS] Allergy Intermediate RASH Verified 07/27/23 19:34 penicillin V Allergy Unknown Rash Verified 07/27/23 19:34 Review of Systems Review of Systems: Yes all other systems are reviewed and are negative [facility] Social History Social History Alcohol intake: current Alcohol intake frequency: holidays/special occasions only Advance Directives: No Advance Directives Information Provided: No Physical Exam ED Vital Signs: Vital Signs - 24 hr 07/27/23 19:34 07/27/23 22:00 Temperature 97.3 F 98.1 F Pulse Rate 99 95 Respiratory Rate 18 17 Blood Pressure 164/98 H 154/94 H Pulse Oximetry 98 99 Oxygen Delivery Method Room Air Room Air BMI result Body Mass Index 41.8 Appearance: Alert. Oriented X3. No acute distress. Eyes: PERRLA, No Nystagmus normal fundus ENT: Pharynx normal. Oral Mucosa moist no temporal artery tenderness Neck: Normal inspection. Neck supple. CVS: Normal heart rate and rhythm. Pulses normal. Respiratory: No respiratory distress. Equal air entry bilateral, Abdomen: Soft and nontender. Bowel sounds are present, Skin: Skin warm and dry. Normal skin color. Normal skin turgor. Extremities: No lower extremity edema. No calf tenderness Neuro: Oriented X 3. No motor deficit. No sensory deficit.No cerebellar signs , cranial nerves II-XII intact Course Course Course Narrative: This is an RME: Additional HPI, ROS, PE not included below will be deferred to primary provider. Patient is a 48-year-old female who presents emergency department for evaluation of headache and dizziness. She reports that she was here 2 days ago a feels as though symptoms are progressing, previously was frontal note is in the back significantly worse, described as ?the worst headache of life? and radiating into her neck. Had some relief when medicated here, but has not had resolution and is worsening. Plan: repeat labs, CT head Medications Administered Discontinued Medications Generic Name Dose Route Start Last Admin Trade Name Freq PRN Reason Stop Dose Admin Acetaminophen/Butalbital/Caffeine 1 tab 07/27/23 23:28 07/27/23 23:38 Butalb/Acetamin/Caff 50/325/40 Tablet PO 07/27/23 23:29 1 tab ONCE ONE Administration Ondansetron HCl 4 mg 07/27/23 22:06 07/27/23 22:21 Ondansetron Odt 4 Mg Tab.Rapdis TRANSLINGU 07/27/23 22:07 4 mg ONCE ONE Administration Sumatriptan Succinate 6 mg 07/27/23 22:06 07/27/23 22:21 Sumatriptan Succinate 6 Mg/0.5 Ml Vial SUBCUT 07/27/23 22:07 6 mg ONCE ONE Administration Medical Decision Making Medical Decision Making [facility] Narrative: Patient had a CT scan of the head and C-spine prior to my evaluation which were normal with previous fusion of C5-C7 patient's headache improved after Imitrex felt much better will discharge patient home on Fioricet likely patient has complex migraine Differential Diagnosis Differential Diagnoses: The differential diagnosis associated with the presentation includes Complex migraine/tension headache/CVA/intracranial/SAH Lab Data [facility] Lab Attestation statement: I reviewed the patient's lab results. 07/27/23 20:52 07/27/23 20:52 Labs: Lab Results 07/27/23 Range/Units 20:52 WBC 6.9 (4.8-10.8) X10*3/uL RBC 4.86 (4.20-5.50) X10*6/uL Hgb 12.7 (12.0-16.0) g/dl Hct 39.4 (37.0-47.0) % MCV 81.1 (80.0-98.0) fL MCH 26.1 L (27.0-33.0) pg MCHC 32.2 (31.0-35.0) g/dl RDW 13.5 (11.0-16.0) % Plt Count 243 (160-400) X10*3/uL MPV 9.3 L (9.4-12.3) fL Immature Gran % (Auto) 0.4 (0.0-0.4) % Neut % (Auto) 54.6 (45-73) % Lymph % (Auto) 36.8 (20-40) % [place] % (Auto) 4.7 (2-11) % Eos % (Auto) 3.1 (0-4) % Baso % (Auto) 0.4 (0-2) % Lymph # (Auto) 2.5 (1.2-4.9) X10*3/uL [place] # (Auto) 0.3 (0.1-1.2) X10*3/uL Eos # (Auto) 0.2 (0.0-0.4) X10*3/uL Baso # (Auto) 0.0 (0.0-0.2) X10*3/uL Abs Immat Gran (auto) 0.03 (0.00-0.03) X10*3/uL Absolute Neuts (auto) 3.8 (2.0-8.3) x10*3/uL Absolute Nucleated RBC 0.000 (0.0-0.012) X10*3/uL Nucleated RBC % (auto) 0.0 (0.0-0.2) /100WBC Sodium 139 (135-145) mmol/L Potassium 3.9 (3.3-5.1) mmol/L Chloride 103 (96-108) mmol/L Carbon Dioxide 29 (22-29) mmol/L Anion Gap 11 L (12-20) BUN 14 (9-16) mg/dL Creatinine 0.87 (0.5-1.4) mg/dL Estim Creat Clear Calc 100.7 Estimated GFR > 60 Random Glucose 162 H (60-115) mg/dL Calcium 9.4 (8.4-10.2) mg/dL Total Bilirubin 0.2 (0.0-1.0) mg/dL AST 13 (5-31) U/L ALT 14 (0-31) U/L Alkaline Phosphatase 113 (39-117) U/L Total Protein 7.3 (6.5-8.0) g/dL Albumin 3.9 (3.5-5.0) g/dL COVID-19 (PINO) Negative (Negative) COVID-19 Clin Com See Note Influenza Type A (ALISA) Negative (Negative) Influenza Type B (ALISA) Negative (Negative) Influenza A & B Note See Note Discharge Plan Discharge Clinical Impression: Migraine Patient Disposition: Home, Self-Care Instructions: Migraine Headache (ED) Additional Instructions: Likely you have complex migraine headache Your CT scan of the head is negative labs are stable Take Fioricet 1 tablet every 6-8 hours as needed for headache May need Imitrex in future if headache continues/more frequent Prescriptions: New atjomqbzqp-yxlckfolfehep-bjoh 50-325-40 mg tablet 1 tab PO Q6H PRN (Reason: haeadace) Qty: 20 0RF No Action ketorolac 10 mg tablet 10 mg PO Q6H PRN (Reason: pain) 5 Days Qty: 20 0RF Rx Instructions: Patient received Toradol in the emergency room. Interventions: ED Discharge Assessment Last Done: 07/27/23 23:43 Discharge Date/Time: 07/27/23 23:43
--- NOTE | 2023-07-27 20:57 | MHC.EDTECH ---
PATIENT BLOOD DRAWN AND FLU/COVID SWAB COLLECTED AND SENT TO LAB .
[2023-07-27 20:59] LABS: MANUAL DIFF FLAG NO
[2023-07-27 21:01] LABS: Basophils Percent Auto 0.4 % (0-2); Eosinophils Absolute Auto 0.2 X10*3/uL (0.0-0.4); Eosinophils Percent Auto 3.1 % (0-4); Hematocrit 39.4 % (37.0-47.0); Hemoglobin 12.7 g/dl (12.0-16.0); Imm Gran Abs Auto 0.03 X10*3/uL (0.00-0.03); Imm Gran Pct Auto 0.4 % (0.0-0.4); Lymphocytes Absolute Auto 2.5 X10*3/uL (1.2-4.9); Lymphocytes Percent Auto 36.8 % (20-40); Mean Corpuscular HGB Conc 32.2 g/dl (31.0-35.0); Mean Corpuscular Hemoglobin 26.1 pg (27.0-33.0); Mean Corpuscular Volume 81.1 fL (80.0-98.0); Mean Platelet Volume 9.3 fL (9.4-12.3); Monocytes Absolute Auto 0.3 X10*3/uL (0.1-1.2); Monocytes Percent Auto 4.7 % (2-11); Neutrophils Absolute Auto 3.8 x10*3/uL (2.0-8.3); Neutrophils Percent Auto 54.6 % (45-73); Platelet Count 243 X10*3/uL (160-400); Red Blood Count 4.86 X10*6/uL (4.20-5.50); Red Cell Distribution Width 13.5 % (11.0-16.0); White Blood Count 6.9 X10*3/uL (4.8-10.8)
[2023-07-27 21:14] LABS: Alanine Aminotransferase 14 U/L (0-31); Albumin Level 3.9 g/dL (3.5-5.0); Alkaline Phosphatase 113 U/L (39-117); Anion Gap 11 (12-20); Aspartate Amino Transferase 13 U/L (5-31); Bilirubin Total 0.2 mg/dL (0.0-1.0); Blood Urea Nitrogen 14 mg/dL (9-16); Calcium 9.4 mg/dL (8.4-10.2); Carbon Dioxide 29 mmol/L (22-29); Chloride 103 mmol/L (96-108); Creatinine Clr Calc Pharmacy 100.7; Estimated Glomerular Filt Rate > 60; Glucose Random 162 mg/dL (60-115); Potassium 3.9 mmol/L (3.3-5.1); Sodium 139 mmol/L (135-145); Total Protein 7.3 g/dL (6.5-8.0)
[2023-07-27 21:17] LABS: COVID-19 Test Negative (Negative); IDNOW Serial# 16C4AD1C; IDNOW Serial# 55D5AD1C; Influenza A Negative (Negative); Influenza B2 Negative (Negative)
[2023-07-27 22:00] VITALS: BP 154/94; PULSE 95; RESP 17; TEMP 36.7; O2SAT 99
[2023-07-27] MEDS: Ondansetron ODT 4 MG TAB.RAPDIS TRANSLINGU (22:21)
[2023-07-27] MEDS: SUMAtriptan succinate 6 MG/0.5 ML VIAL SUBCUT (22:21)
[2023-07-27] MEDS: Butalb/Acetamin/Caff 50/325/40 TABLET 1 TAB PO (23:38)
== END 2023-07-27 23:43 | disposition home or self-care (01) ==
PROVIDERS: Nurse Practitioner Family; Emergency Provider Internal Medicine; PCP Internal Medicine
DX: G43.909 Migraine, unspecified, not intractable, without status migrainosus (principal); Z11.52 Encounter for screening for COVID-19
CPT/HCPCS: 70450; 72125; 80053; 85025; 87502; 87635; 96372; 99284; J3030

== ENCOUNTER 2023-10-27 14:41 | Emergency (ER) | payer OTHER, SELFPAY ==
--- NOTE | ~2023-10-27 | XR_ITS ---
EXAMINATION: XR LUMBOSACRAL SPINE CLINICAL INFORMATION: Fall, pain, left side. COMPARISON: None available. TECHNIQUE: Three views of the lumbosacral spine. FINDINGS: No evidence of acute compression deformity or subluxation. Mild intervertebral disc height loss and facet arthropathy in the lower lumbar spine. Symmetric SI joints. No significant paraspinal soft tissue abnormality. Right upper quadrant surgical clips are seen. XR/XR lumbar spine 2-3V IMPRESSION: 1. No acute compression deformity or subluxation. 2. Mild lumbar spondylosis.
--- NOTE | 2023-10-27 15:12 | ED.FALL ---
HPI - Fall General Chief Complaint: Back Pain/Injury Stated Complaint: fall Time Seen by Provider: 10/27/23 15:55 Source: patient Mode of arrival: ambulatory Limitations: no limitations History of Present Illness HPI Narrative: 48 year old female with pmhx significant for presents to the ED today for evaluation of left flank/lumbar back pain after slip and fall in shower occurring 1 hour prior to arrival. She reports recently cleaning her shower and getting rid of the shower mat. While in the shower 1 hour ago, she slipped on soap causing her to fall on her left side. Denies head strike or LOC. Not on AC. During the fall, she tried to grab onto something however she does not have hand rails in her shower. She fell to the ground. Endorses immediate sharp pain and tightness to left flank. She called her daughter who was able to assist her up and came immediately to the emergency department. She did not take any OTC medications ORTHODONTIST in ED. able to ambulate with some discomfort. Denies saddle anesthesia, numbness/weakness/tingling of the lower extremities, bowel or bladder incontinence or retention, dysuria, vaginal bleeding, hematuria. Related Data Previous Rx's ?Medication ?Instructions ?Recorded ketorolac 10 mg tablet 10 mg PO Q6H PRN pain 5 days #20 11/12/22 tabs kohefhfpdw-ipoghlwqfgaco-wcsqbktv 1 tab PO Q6H PRN haeadace #20 tabs 07/27/23 50 mg-325 mg-40 mg tablet cyclobenzaprine 5 mg tablet 5 mg PO Q8H PRN muscle spasm #7 10/27/23 tabs lidocaine 5 % topical patch 1 patch topical DAILY #15 ea 10/27/23 (Lidoderm) naproxen 500 mg tablet 500 mg PO Q8-12H PRN pain (scale 10/27/23 score 4-6) #20 tabs Allergies Allergy/AdvReac Type Severity Reaction Status Date / Time Penicillins [PENICILLINS] Allergy Intermediate RASH Verified 10/27/23 15:15 penicillin V Allergy Unknown Rash Verified 10/27/23 15:15 Review of Systems Review of Systems: Constitutional: No fever, chills, fatigue, night sweats, weight changes ENT/Mouth: No ear pain, hearing loss, nasal congestion, sinus pain, rhinorrhea, sore throat Eyes: No eye pain, swelling, redness, vision changes, discharge Cardio: No chest pain, palpitations, WILLAMS, orthopnea, peripheral edema Pulm: No SOB, cough, sputum, wheezing, dyspnea, hemoptysis GI: No nausea, vomiting, hematemesis, abdominal pain, diarrhea, constipation, hematochezia, melena : No irregular bleeding, dysuria, frequency, urgency, hesitancy, hematuria, urinary flow changes, urinary incontinence or retention, +left flank pain MSK: No neck pain, joint pain, myalgias, +low back pain Skin: No lesions, rashes Neuro: No weakness, numbness, paresthesias, LOC, dizziness, headache Psych: No anxiety/panic, depression, SI/HI, AH/VH All other systems reviewed and are negative. [facility] Past Medical History Attestation statement: The following information was validated with the patient. Source: old records reviewed and nursing notes reviewed Social History Social History Alcohol intake: current Alcohol intake frequency: holidays/special occasions only Advance Directives: No Advance Directives Information Provided: No Do you have a plan to hurt others: No Plan Physical Exam Vital Signs: Vital Signs: Last Vital Signs Temp 98.0 F 10/27/23 15:13 Pulse 100 10/27/23 15:13 Resp 18 10/27/23 15:13 BP 132/73 10/27/23 15:13 Pulse Ox 99 10/27/23 15:13 O2 Del Method Room Air 10/27/23 15:13 BMI result Body Mass Index 40.3 Vital signs stable, afebrile Const: General: cooperative, healthy appearing, comfortable and no acute distress Orientation/consciousness: patient oriented x3 Limitations: no limitations HEENT: Head: Yes normal to inspection, Yes No palpable skull fracture present, Yes normocephalic and Yes atraumatic Eyes: General: appearance normal, both eyes and all related structures Conjunctivae: conjunctivae normal Sclerae: sclerae normal Pupils: Equal, round and reactive pupils present Neck: Neck: Yes normal visual inspection, Yes full ROM and Yes no lymphadenopathy Chest: Chest palpation & inspection: normal inspection of the chest, normal palpation of entire chest wall, no crepitus and no tenderness Resp: Effort & Inspection: normal respiratory effort and able to speak in complete sentences Auscultation: clear to auscultation bilaterally Cardio: Rate: regular rate Rhythm: regular rhythm GI: Inspection: Yes normal to inspection and No abdominal wall ecchymosis Palpation (GI): Soft to palpation and nontender : General: Yes no CVA tenderness Back/Spine/Pelvis: Other: + no overlying skin changes or deformity noted to back. no midline spinous tenderness or step-off deformity. There is tenderness to palpation overlying the left paraspinal lumbar muscles. No spasm. Back: no CVA tenderness and No Cleaning-Best sign present Skin: General skin exam: no rashes or lesions noted Neuro: Other: Strength 5/5 intact throughout.? No saddle anesthesia.? Sensation intact to light touch.? Neurovascular intact distally.? General: patient oriented x3 Cranial nerves: Yes Equal, round and reactive pupils present Extrem: General: Yes normal to inspection Course Course Course Narrative: This is a rapid medical exam completed by Darion ALLENN: Additional HPI, ROS, PE not included below will be deferred to primary provider. Slipped and fell in the shower landing on her left side roughly 1 hr prior to arrival. Complaints of left lower back stabbing pain and difficulty with ambulation due to pain. States pain starts and low back and radiates down lateral left leg to the thigh. Denies OTC medications Reevaluation(s) Reevaluation #1: 8174-- x-ray lumbar spine does not demonstrate acute fracture or compression deformity. concern for lumbar strain versus contusion. Patient given Flexeril and lidocaine patch. Her friend will be driving her home today. Lidocaine patch, Flexeril, naproxen sent to pharmacy for pain control. Patient has remained stable throughout ED visit today. Discussed worrisome signs and symptoms and when to return to the ED. All questions answered at this time. Patient is agreeable with disposition and stable for discharge. Medications Administered Discontinued Medications Generic Name Dose Route Start Last Admin Trade Name Freq PRN Reason Stop Dose Admin Cyclobenzaprine HCl 5 mg 10/27/23 17:10 10/27/23 17:44 Cyclobenzaprine Hcl 5 Mg Tablet PO 10/27/23 17:11 5 mg ONCE ONE Administration Lidocaine 1 patch 10/27/23 17:10 10/27/23 17:44 Lidocaine 4 % Patch Adh..Patch TRANSDERMA 10/27/23 17:11 1 patch ONCE ONE Administration Protocol Naproxen 250 mg 10/27/23 17:10 10/27/23 17:44 Naproxen 250 Mg Tablet PO 10/27/23 17:11 Not Given ONCE ONE Medical Decision Making Medical Decision Making MDM Narrative: 48 year old female with pmhx significant for presents to the ED today for evaluation of left flank/lumbar back pain after slip and fall in shower occurring 1 hour prior to arrival. Vital signs stable, afebrile. She is nontoxic-appearing and in no acute distress. No abdominal ecchymoses or deformity On exam, no overlying skin changes or deformity noted to back. no midline spinous tenderness or step-off deformity. There is tenderness to palpation overlying the left paraspinal lumbar muscles. No spasm. Neurovascularly intact distally. Sensation intact. No saddle anesthesia. Strength 5/5 intact throughout. Ambulating with steady gait. Differential diagnosis includes contusion, MSK sprain, MSK strain, fracture, subluxation. Unlikely disc herniation, cord compression, Guillain-[place], epidural abscess, cauda equina, intra-abdominal bleeding, splenic laceration, ICH, TIA/CVA, concussion. Plan for imaging, pain control, and re-evaluation. Differential Diagnosis Differential Diagnoses: The differential diagnosis associated with the presentation includes As above Admission/Observation Not indicated Independent Interpretation I performed an independent interpretation of an: Plain X-Ray Interpretation: X-ray lumbar spine without compression deformity, agree with radiologist's interpretation. Radiology Impression Discussion of test interpretation with radiology: I have reviewed the radiologist's reading. Radiologist Impression: EXAMINATION: XR LUMBOSACRAL SPINE CLINICAL INFORMATION: Fall, pain, left side. COMPARISON: None available. TECHNIQUE: Three views of the lumbosacral spine. FINDINGS: No evidence of acute compression deformity or subluxation. Mild intervertebral disc height loss and facet arthropathy in the lower lumbar spine. Symmetric SI joints. No significant paraspinal soft tissue abnormality. Right upper quadrant surgical clips are seen. XR/XR lumbar spine 2-3V IMPRESSION: 1. No acute compression deformity or subluxation. 2. Mild lumbar spondylosis. External Record Review External record reviewed: Inpatient record Prescription Management I considered prescription management with: Pain Medication (Naproxen) and Other (Lidocaine, Flexeril) Social Determinants Patient?s care significantly limited by Social Determinants of Health including: Other Social Determinant of Health Critical Care Time Critical Care Time Critical Care Time: No Discharge Plan Discharge Clinical Impression: Lumbar strain Patient Disposition: Home, Self-Care Instructions: Muscle Strain (ED), Back Pain (ED), Lower Back Exercises (ED) Additional Instructions: Your imaging studies today did not show acute fracture. Your pain is likely musculoskeletal. Avoid bending, lifting, or twisting. Use ice several times per day for 20 minutes at a time for the next 48 hours and then change to heat. Flexeril is a muscle relaxer. Take this at night as it makes you drowsy. Do not drive, drink alcohol, or operate machinery while taking it. Naproxen is an anti-inflammatory / pain medication. Take with food. Do not take this with Ibuprofen. Lidoderm patches are numbing patches. Apply to painful areas. In addition you may take Tylenol at home. Follow up with your primary care provider as needed If your pain worsens, if you develop new numbness, tingling, weakness, loss of bowel or bladder function call 911 or return to the ER immediately for evaluation. Prescriptions: New lidocaine [Lidoderm] 5 % adhesive patch,medicated 1 patch topical DAILY Qty: 15 0RF Rx Instructions: leave on most painful area for up to 12 hrs naproxen 500 mg tablet 500 mg PO Q8-12H PRN (Reason: pain (scale score 4-6)) Qty: 20 0RF cyclobenzaprine 5 mg tablet 5 mg PO Q8H PRN (Reason: muscle spasm) Qty: 7 0RF No Action ketorolac 10 mg tablet 10 mg PO Q6H PRN (Reason: pain) 5 Days Qty: 20 0RF Rx Instructions: Patient received Toradol in the emergency room. cukxongwbw-naradcxdqakio-ybai 50-325-40 mg tablet 1 tab PO Q6H PRN (Reason: haeadace) Qty: 20 0RF Referrals: Kari German MD [Primary Care Provider] - Stand Alone Forms: Work/School Release Print Language: Tuvaluan
[2023-10-27 15:13] VITALS: BP 132/73; PULSE 100; RESP 18; TEMP 36.7; O2SAT 99; BMI 40.3
[2023-10-27] MEDS: Lidocaine 4 % Patch ADH..PATCH 1 PATCH TRANSDERMA (17:44)
[2023-10-27] MEDS: Cyclobenzaprine HCl 5 MG TABLET PO (17:44)
[2023-10-27 17:56] VITALS: BP 136/78; PULSE 98; RESP 18; TEMP 36.7; O2SAT 99
== END 2023-10-27 17:57 | disposition home or self-care (01) ==
PROVIDERS: Emergency Provider Emergency Medicine; PCP Internal Medicine
DX: S39.012A Strain of muscle, fascia and tendon of lower back, initial encounter (principal); W01.0XXA Fall on same level from slipping, tripping and stumbling without subsequent striking against object, initial encounter; Y93.9 Activity, unspecified; Y92.9 Unspecified place or not applicable; Y99.9 Unspecified external cause status; M54.9 Dorsalgia, unspecified
CPT/HCPCS: 72100; 99283

== ENCOUNTER 2024-02-27 06:46 | Emergency (ER) | payer OTHER, SELFPAY ==
--- NOTE | 2024-02-27 | ECG_ITS ---
Test Reason : PALPATATIONS Blood Pressure : / mmHG Vent. Rate : 093 BPM Atrial Rate : 093 BPM P-R Int : 128 ms QRS Dur : 088 ms QT Int : 350 ms P-R-T Axes : 007 010 009 degrees QTc Int : 435 ms Normal sinus rhythm Normal ECG When compared with ECG of 25-JUL-2023 22:17, Borderline criteria for Anterior infarct are no longer Present Referred By: Generic ED Physician Electronically Signed By:CHANDRA TEJEDA
--- NOTE | ~2024-02-27 | CT_ITS ---
EXAMINATION: CT CERVICAL SPINE WITHOUT CONTRAST CLINICAL INFORMATION: Headaches for several months and neck pain COMPARISON: None available. TECHNIQUE: Thin section axial images with sagittal and coronal reformats. This CT examination was performed using dose optimization techniques as appropriate, variously including the following: *Automated exposure control *Adjustment of mA and/or kV according to patient size (this includes techniques or standardized protocols for targeted exams where dose is matched to indication/reason for exam; i.e. extremities or head) *Use of iterative reconstruction technique DLP: 610 mGy-cm FINDINGS: Alignment normal. Postsurgical changes are observed C5-C7 which creates some streak artifact but no fracture is seen. No encroachment on the spinal canal. Prevertebral soft tissues are normal. CT/CT cervical spine wo IV con IMPRESSION: Unremarkable examination. Fleischner guidelines were followed. Electronically signed by: Cordell Ulloa MD 02/27/2024 11:04 AM EDT
--- NOTE | ~2024-02-27 | CT_ITS ---
EXAMINATION: CT HEAD WITHOUT CONTRAST CLINICAL INFORMATION: Headaches for 2 months COMPARISON: None available. TECHNIQUE: Contiguous axial imaging was performed from the skull base to vertex without intravenous administration of contrast. This CT examination was performed using dose optimization techniques as appropriate, variously including the following: *Automated exposure control *Adjustment of mA and/or kV according to patient size (this includes techniques or standardized protocols for targeted exams where dose is matched to indication/reason for exam; i.e. extremities or head) *Use of iterative reconstruction technique DLP: 642 mGy-cm FINDINGS: No intra or extra-axial fluid collection or hemorrhage, mass, or mass effect. However intact. CT/CT head/brain wo IV con IMPRESSION: No acute intracranial pathology. Electronically signed by: Cordell Ulloa MD 02/27/2024 11:02 AM EDT
[2024-02-27 06:52] VITALS: BP 177/93; PULSE 94; RESP 18; TEMP 36.6; O2SAT 99; BMI 37.3
[2024-02-27 08:35] VITALS: BP 152/86; PULSE 92; RESP 16; TEMP 36.6; O2SAT 98
--- NOTE | 2024-02-27 08:38 | ED_ITS ---
HPI - General Adult General Chief complaint: Headache Stated complaint: headache/ palpitations Time Seen by Provider: 02/27/24 08:38 Source: patient Mode of arrival: ambulatory Limitations: no limitations History of Present Illness ED Provider: nette PHAM narrative: Patient is a 48-year-old female with history of headaches, cervical spinal fusion, T2 DM, HTN presenting to the emergency department with complaint of ongoing headache for the past 2 months. States she has history of same in the past which began prior to her cervical spinal fusion. 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 She is prescribed Imitrex but has not been using this as she needs to remain alert at her job. Also complains of episodic lightheadedness worse with position changes, associated palpitations. Denies fevers. Denies nausea/vomiting. Denies history of cancer. Denies sudden onset or worst headache of life. Denies any weakness, numbness, tingling to extremities. Did not take her BP medications prior to arrival this morning. MD complaint: headache Onset (ago): month(s) Location: head Radiation: non-radiation Severity: severe Quality: aching Pain Consistency: constant Relieving factors: none Exacerbating factors: movement Associated symptoms: other Related Data Previous Rx's ?Medication ?Instructions ?Recorded ketorolac 10 mg tablet 10 mg PO Q6H PRN pain 5 days #20 11/12/22 tabs gczifglaeb-ikrlifskuxsqd-cwkfmsnh 1 tab PO Q6H PRN haeadace #20 tabs 07/27/23 50 mg-325 mg-40 mg tablet cyclobenzaprine 5 mg tablet 5 mg PO Q8H PRN muscle spasm #7 10/27/23 tabs lidocaine 5 % topical patch 1 patch topical DAILY #15 ea 10/27/23 (Lidoderm) naproxen 500 mg tablet 500 mg PO Q8-12H PRN pain (scale 10/27/23 score 4-6) #20 tabs Allergies Allergy/AdvReac Type Severity Reaction Status Date / Time Penicillins [PENICILLINS] Allergy Intermediate RASH Verified 02/27/24 06:55 penicillin V Allergy Unknown Rash Verified 02/27/24 06:55 Review of Systems 2 Review of Systems: As per HPI. Yes all other systems are reviewed and are negative [facility] Social History Social History Alcohol intake: current Alcohol intake frequency: holidays/special occasions only Alcohol type: wine Smoked in Last 30 Days: No Use of substances other than those prescribed or required for medical reasons: No Advance Directives: No Advance Directives Information Provided: Yes Do you have a plan to hurt others: No Plan Patient : No Physical Exam ED Vital Signs: Vital Signs - 24 hr 02/27/24 06:52 02/27/24 08:35 02/27/24 10:45 Temperature 97.8 F 97.8 F 97.6 F Pulse Rate 94 92 91 Respiratory Rate 18 16 18 Blood Pressure 177/93 H 152/86 H 129/66 Pulse Oximetry 99 98 98 Oxygen Delivery Method Room Air Room Air Room Air BMI result Body Mass Index 37.3 Medications Administered Discontinued Medications Generic Name Dose Route Start Last Admin Trade Name Freq PRN Reason Stop Dose Admin Diphenhydramine HCl 25 mg 02/27/24 10:45 02/27/24 10:58 Diphenhydramine Hcl 50 Mg/Ml Vial IVPUSH 02/27/24 10:46 25 mg ONCE ONE Administration Sodium Chloride 1,000 mls @ 999 mls/hr 02/27/24 10:45 02/27/24 10:59 Ns IV 02/27/24 11:45 999 mls/hr .Q1H1M TORSTEN Administration Ketorolac Tromethamine 15 mg 02/27/24 11:10 02/27/24 11:36 Ketorolac Tromethamine 15 Mg/Ml Vial IVPUSH 02/27/24 11:11 15 mg ONCE ONE Administration Metoclopramide HCl 10 mg 02/27/24 10:45 02/27/24 10:58 Metoclopramide Hcl 10 Mg/2 Ml Vial IVPUSH 02/27/24 10:46 10 mg ONCE ONE Administration Medical Decision Making Medical Decision Making MDM Narrative: Patient is a 48-year-old female with history of headaches, cervical spinal fusion, T2 DM, HTN presenting to the emergency department with complaint of ongoing headache for the past 2 months. On exam patient is awake, A+Ox3, BP elevated, VS otherwise WNL, afebrile, normal neurological exam without focal deficits, physical exam findings as above. Given reported symptoms and physical exam findings, initial differential includes migraine, tension headache, electrolyte abnormality, uncontrolled HTN. No red flag findings concerning for ICH/SAH, acute glaucoma, carotid artery dissection, CO poisoning, encephalitis, meningitis, preeclampsia, pseudotumor, temporal arteritis/giant cell arteritis. Labs notable for no leukocytosis, no electrolyte abnormalities, negative troponin, negative hcg. CT head and c-spine notable for no acute abnormalities. My interpretation is in agreement with the radiologist's interpretation. Patient reports full relief of headache after medications administered in the ED. Repeat blood pressure normal. Patient states she feels comfortable with discharge home. Instructed patient to follow up with PCP. Return precautions discussed at bedside. Patient verbalized understanding of and agreement wtih plan. Differential Diagnosis Differential Diagnoses: The differential diagnosis associated with the presentation includes As per [facility]. Admission/Observation Consideration of admission/observation: Escalation of care including admission/observation considered Patient would have been admitted to the hospital had their work up had any findings where hospital admission was appropriate and their clinical presentation warranted hospital admission. Lab Data [facility] Lab Attestation statement: I reviewed the patient's lab results. As per [facility] 02/27/24 09:08 02/27/24 09:08 Labs: Lab Results 02/27/24 02/27/24 Range/Units 09:08 10:49 WBC 8.1 (4.8-10.8) X10*3/uL RBC 4.91 (4.20-5.50) X10*6/uL Hgb 13.1 (12.0-16.0) g/dl Hct 40.7 (37.0-47.0) % MCV 82.9 (80.0-98.0) fL MCH 26.7 L (27.0-33.0) pg MCHC 32.2 (31.0-35.0) g/dl RDW 14.9 (11.0-16.0) % Plt Count 225 (160-400) X10*3/uL MPV 9.8 (9.4-12.3) fL Immature Gran % (Auto) 0.5 H (0.0-0.4) % Neut % (Auto) 69.0 (45-73) % Lymph % (Auto) 23.9 (20-40) % [place] % (Auto) 4.7 (2-11) % Eos % (Auto) 1.5 (0-4) % Baso % (Auto) 0.4 (0-2) % Lymph # (Auto) 1.9 (1.2-4.9) X10*3/uL [place] # (Auto) 0.4 (0.1-1.2) X10*3/uL Eos # (Auto) 0.1 (0.0-0.4) X10*3/uL Baso # (Auto) 0.0 (0.0-0.2) X10*3/uL Abs Immat Gran (auto) 0.04 H (0.00-0.03) X10*3/uL Absolute Neuts (auto) 5.6 (2.0-8.3) x10*3/uL Absolute Nucleated RBC 0.000 (0.0-0.012) X10*3/uL Nucleated RBC % (auto) 0.0 (0.0-0.2) /100WBC Sodium 137 (135-145) mmol/L Potassium 4.8 D (3.3-5.1) mmol/L Chloride 102 (96-108) mmol/L Carbon Dioxide 28 (22-29) mmol/L Anion Gap 12 (12-20) BUN 15 (9-16) mg/dL Creatinine 0.87 (0.5-1.4) mg/dL Estim Creat Clear Calc 94.6 Estimated GFR > 60 Random Glucose 145 H (60-115) mg/dL Calcium 9.6 (8.4-10.2) mg/dL Total Bilirubin 0.4 (0.0-1.0) mg/dL AST 20 (5-31) U/L ALT 17 (0-31) U/L Alkaline Phosphatase 87 (39-117) U/L Troponin I High Sens < 2.7 (<3.5-17.0) ng/L Total Protein 7.4 (6.5-8.0) g/dL Albumin 3.9 (3.5-5.0) g/dL Beta HCG, Quant < 2 mIU/mL Urine Color Yellow Urine Appearance Clear Urine pH 5.5 (5.0-9.0) Ur Specific [place] 1.010 (1.005-1.025) Urine Protein Negative (Neg-Trace) mg/dL Urine Glucose (UA) Negative (Negative) mg/dL Urine Ketones Negative (Negative) mg/dL Urine Blood Negative (Negative) Urine Nitrite Negative (Negative) Ur Leukocyte Esterase Negative (Negative) Urine RBC 0-2 (0-2) /HPF Urine WBC 0-5 (0-5) /HPF Ur Squamous Epith Cells 0-2 (0-2) /HPF Urine Bacteria None Seen (None Seen) Hyaline Casts 0-2 (0-2) /LPF Independent Interpretation I performed an independent interpretation of an: EKG (normal sinus rhythm, rate 93bpm, normal RI interval and QTc) and CT Scan Interpretation: CT head and c-spine notable for no acute abnormalities. Radiology Impression Discussion of test interpretation with radiology: I have reviewed the radiologist's reading. Radiologist Impression: FINDINGS: No intra or extra-axial fluid collection or hemorrhage, mass, or mass effect. However intact. CT/CT head/brain wo IV con IMPRESSION: No acute intracranial pathology. CT/CT cervical spine wo IV con IMPRESSION: Unremarkable examination. External Record Review External record reviewed: Inpatient record, Office record and Outpatient record Discharge Plan Discharge Clinical Impression: Headache Patient Disposition: Home, Self-Care Instructions: Acute Headache (DC), Tension Headache (ED), Migraine Headache (ED) Additional Instructions: You have been evaluated in the emergency department today for headache. Your evaluation did not show evidence of medical conditions requiring emergent intervention at this time, and your pain improved with medication in the ED. We recommend you take 600 mg ibuprofen every 6 hours or Tylenol 650 mg every 6 hours as needed for pain. If needed, you can alternate these medications so that you take 1 medication every 3 hours. For instance, at noon take ibuprofen, then at 3:00 p.m. take Tylenol, then at 6:00 p.m. take ibuprofen. Please follow-up with your primary care provider within 2 days. Return to the emergency department if you experience worsening or uncontrolled pain, vision changes, recurrent vomiting, difficulty with normal activities, abnormal behavior, difficulty walking, numbness, weakness, or any other concerning symptoms. Prescriptions: No Action ketorolac 10 mg tablet 10 mg PO Q6H PRN (Reason: pain) 5 Days Qty: 20 0RF Rx Instructions: Patient received Toradol in the emergency room. lidocaine [Lidoderm] 5 % adhesive patch,medicated 1 patch topical DAILY Qty: 15 0RF Rx Instructions: leave on most painful area for up to 12 hrs naproxen 500 mg tablet 500 mg PO Q8-12H PRN (Reason: pain (scale score 4-6)) Qty: 20 0RF cyclobenzaprine 5 mg tablet 5 mg PO Q8H PRN (Reason: muscle spasm) Qty: 7 0RF rydsdvfsvj-zmmzxkslxfpzo-dzwv 50-325-40 mg tablet 1 tab PO Q6H PRN (Reason: haeadace) Qty: 20 0RF Print Language: Armenian
--- NOTE | 2024-02-27 08:42 | PC.NURSE ---
Pt comes to ED today with c/o MCKENZIE x2 weeks s/p nerve block. States pain is 10/10 and constant with dizziness and new onset of heart palpitation this AM. Afebrile, A&Ox3, slightly hypertensive. Provider at bedside now.
--- NOTE | 2024-02-27 08:50 | MHC.EDTECH ---
EKG Done Provider puy the order in twice
[2024-02-27 09:14] LABS: MANUAL DIFF FLAG NO
[2024-02-27 09:15] LABS: Basophils Percent Auto 0.4 % (0-2); Eosinophils Absolute Auto 0.1 X10*3/uL (0.0-0.4); Eosinophils Percent Auto 1.5 % (0-4); Hematocrit 40.7 % (37.0-47.0); Hemoglobin 13.1 g/dl (12.0-16.0); Imm Gran Abs Auto 0.04 X10*3/uL (0.00-0.03); Imm Gran Pct Auto 0.5 % (0.0-0.4); Lymphocytes Absolute Auto 1.9 X10*3/uL (1.2-4.9); Lymphocytes Percent Auto 23.9 % (20-40); Mean Corpuscular HGB Conc 32.2 g/dl (31.0-35.0); Mean Corpuscular Hemoglobin 26.7 pg (27.0-33.0); Mean Corpuscular Volume 82.9 fL (80.0-98.0); Mean Platelet Volume 9.8 fL (9.4-12.3); Monocytes Absolute Auto 0.4 X10*3/uL (0.1-1.2); Monocytes Percent Auto 4.7 % (2-11); Neutrophils Absolute Auto 5.6 x10*3/uL (2.0-8.3); Platelet Count 225 X10*3/uL (160-400); Red Blood Count 4.91 X10*6/uL (4.20-5.50); Red Cell Distribution Width 14.9 % (11.0-16.0); White Blood Count 8.1 X10*3/uL (4.8-10.8)
[2024-02-27 09:40] LABS: Alanine Aminotransferase 17 U/L (0-31); Albumin Level 3.9 g/dL (3.5-5.0); Alkaline Phosphatase 87 U/L (39-117); Anion Gap 12 (12-20); Aspartate Amino Transferase 20 U/L (5-31); Blood Urea Nitrogen 15 mg/dL (9-16); Calcium 9.6 mg/dL (8.4-10.2); Carbon Dioxide 28 mmol/L (22-29); Chloride 102 mmol/L (96-108); Creatinine Clr Calc Pharmacy 94.6; Estimated Glomerular Filt Rate > 60; Glucose Random 145 mg/dL (60-115); HCG Quantitative < 2 mIU/mL; Potassium 4.8 mmol/L (3.3-5.1); Sodium 137 mmol/L (135-145); Total Protein 7.4 g/dL (6.5-8.0)
[2024-02-27 09:46] LABS: Bilirubin Total 0.4 mg/dL (0.0-1.0); Troponin-I High Sensitivity < 2.7 ng/L (<3.5-17.0)
[2024-02-27 10:45] VITALS: BP 129/66; PULSE 91; RESP 18; TEMP 36.4; O2SAT 98
[2024-02-27] MEDS: diphenhydrAMINE HCL 50 MG/ML VIAL 25 MG IVPUSH (10:58)
[2024-02-27] MEDS: Metoclopramide HCl 10 MG/2 ML VIAL IVPUSH (10:58)
[2024-02-27 10:59] LABS: Appearance Urine Clear; Color Urine Yellow; Glucose Urine UA Negative (Negative); Leukocyte Esterase Urine Negative (Negative); Nitrite Urine Negative (Negative); PH 5.5 (5.0-9.0); Urine Blood Negative (Negative); Urine Ketones Negative (Negative); Urine Protein Negative (Neg-Trace)
[2024-02-27] MEDS: 0.9 % Sodium Chloride 1,000 ML 999 ML IV (10:59)
[2024-02-27 11:01] LABS: Bacteria Urine None Seen (None Seen); Hyaline Casts Urine 0-2 /LPF (0-2); RBC Urine 0-2 /HPF (0-2); Squamous Epithelial Cell Urine 0-2 /HPF (0-2); WBC Urine 0-5 /HPF (0-5)
[2024-02-27] MEDS: Ketorolac Tromethamine 15 MG/ML VIAL IVPUSH (11:36)
[2024-02-27 12:43] VITALS: BP 140/76; PULSE 91; RESP 16; TEMP 36.4; O2SAT 99
== END 2024-02-27 12:44 | disposition home or self-care (01) ==
PROVIDERS: Registered Nurse Emergency; Emergency Provider Emergency Medicine Emergency Medical Services; PCP Internal Medicine
DX: R51.9 Headache, unspecified (principal); R00.2 Palpitations; I10 Essential (primary) hypertension; M54.2 Cervicalgia; R42 Dizziness and giddiness; Z79.899 Other long term (current) drug therapy
CPT/HCPCS: 36415; 70450; 72125; 80053; 81001; 84484; 84702; 85025; 93005; 96374; 96375; 99284; 99285; J1200; J1885; J2765

== ENCOUNTER 2024-04-16 06:32 | Emergency (ER) | payer OTHER, SELFPAY ==
--- NOTE | 2024-04-16 06:33 | ECG_ITS ---
Test Reason : CHEST PAIN Blood Pressure : / mmHG Vent. Rate : 095 BPM Atrial Rate : 095 BPM P-R Int : 126 ms QRS Dur : 086 ms QT Int : 354 ms P-R-T Axes : 055 008 014 degrees QTc Int : 444 ms Normal sinus rhythm Possible Anterior infarct , age undetermined Abnormal ECG When compared with ECG of 27-FEB-2024 06:45, Borderline criteria for Anterior infarct are now Present Referred By: Generic ED Physician Electronically Signed By:KERMIT FAROOQ
[2024-04-16 06:36] VITALS: BP 166/88; PULSE 92; RESP 16; TEMP 36.3; O2SAT 98; BMI 41.6
--- NOTE | 2024-04-16 06:55 | ED.CHESTPAIN ---
HPI - Chest Pain General Chief Complaint: Chest Pain Stated Complaint: High BP Time Seen by Provider: 04/16/24 06:49 Source: patient Mode of arrival: ambulatory Limitations: no limitations History of Present Illness ED Provider: Dr. Madhu Kirna HPI narrative: 48-year-old female with a history of diabetes mellitus, hypertension, anxiety, panic disorder who presents emergency department for evaluation of chest pain. Patient states that at 06:00 hours she was sleeping and then woke up with tightness in her chest. She states that the pain was a heaviness and was 7/10 at its worst. The pain was worse with breathing. Patient did feel short of breath, lightheaded and dizzy. She had associated nausea but no vomiting. She had no radiation of the pain to her neck, jaw, arms or back. She states this is a 1st episode of this type of pain. Patient was evaluated yesterday at her PCP's office and her lisinopril was increased from 20 mg once a day to 30 mg once a day secondary to high blood pressure. She is also going to be worked up for possible asleep apnea. Related Data Previous Rx's ?Medication ?Instructions ?Recorded ketorolac 10 mg tablet 10 mg PO Q6H PRN pain 5 days #20 11/12/22 tabs nmoioykqby-znxqokkdyppej-braukfzu 1 tab PO Q6H PRN haeadace #20 tabs 07/27/23 50 mg-325 mg-40 mg tablet cyclobenzaprine 5 mg tablet 5 mg PO Q8H PRN muscle spasm #7 10/27/23 tabs lidocaine 5 % topical patch 1 patch topical DAILY #15 ea 10/27/23 (Lidoderm) naproxen 500 mg tablet 500 mg PO Q8-12H PRN pain (scale 10/27/23 score 4-6) #20 tabs Allergies Allergy/AdvReac Type Severity Reaction Status Date / Time Penicillins [PENICILLINS] Allergy Intermediate RASH Verified 04/16/24 06:37 penicillin V Allergy Unknown Rash Verified 04/16/24 06:37 Review of Systems Review of Systems: Yes all other systems are reviewed and are negative [facility] Past Medical History [facility] Narrative: Social history: She denies tobacco use. She occasionally drinks alcohol. She denies drug use. Social History Social History Alcohol intake: current Alcohol intake frequency: holidays/special occasions only Alcohol type: wine Smoked in Last 30 Days: No Use of substances other than those prescribed or required for medical reasons: No Advance Directives: No Do you have a plan to hurt others: No Plan Patient : No Physical Exam Vital Signs: Vital Signs: Last Vital Signs Temp 97.8 F 04/16/24 10:48 Pulse 88 04/16/24 10:48 Resp 16 04/16/24 10:48 BP 128/70 04/16/24 10:48 Pulse Ox 97 04/16/24 10:48 O2 Del Method Room Air 04/16/24 10:48 BMI result Body Mass Index 41.6 Vital signs were normal Exam: General: Awake, alert , in no distress, does appear to be anxious Head: Normocephalic, atraumatic EENT: PERRL, Lids normal, sclera normal, conjunctiva normal, nose normal , ears normal, throat without erythema or exudates Neck: Supple, no adenopathy Lung: breath sounds symmetric, no wheezing, rales or rhonchi Chest: symmetric movement, nontender Heart: regular rate and rhythm, normal S1, S2 no murmurs or rubs Abdomen: soft, non-tender, nondistended, normal bowel sounds Back: no vertebral tenderness, no CVAT Extremities: no deformities, moves all extremities symmetrically Neuro: Awake, alert, oriented, normal speech, cranial nerves intact, moves all extremities symmetrically Psych: Pleasant, cooperative, anxious Medications Administered Discontinued Medications Generic Name Dose Route Start Last Admin Trade Name Freq PRN Reason Stop Dose Admin Lorazepam 2 mg 04/16/24 07:13 04/16/24 07:31 Lorazepam 1 Mg Tablet PO 04/16/24 07:14 2 mg ONCE STA Administration Medical Decision Making Medical Decision Making MDM Narrative: 48-year-old female with a history of diabetes mellitus, hypertension, anxiety, panic disorder who presents emergency department for evaluation of chest pain. Patient states that at 06:00 hours she was sleeping and then woke up with tightness in her chest/heaviness 7/10 at its worse, exacerbated by breathing associated with shortness of breath, lightheadedness, dizziness and anxiety. Patient was seen yesterday by her PCP and her lisinopril was increased from 20 mg to 30 mg daily for elevated blood pressure. Patient was also in the process of being worked up for sleep apnea. Vital signs were normal, examination was unremarkable except for anxiety. Differential diagnosis: ?Includes but is not limited to myocardial infarction, myocardial ischemia, chest wall pain, costochondritis, anxiety, panic attack Course: My independent interpretation patient's laboratory evaluation as follows: CBC was normal. CMP revealed an elevated glucose of 163 otherwise unremarkable. Troponin was below detectable limits. Patient's 12 EKG was unremarkable. Patient was treated with Ativan 2 mg orally with improvement of her symptoms. This time I do not think that her chest pain was caused by cardiac disease is most likely musculoskeletal pain that triggered anxiety. I did discuss this with the patient. She was given printed and verbal instructions and discharged home. Admission/Observation Consideration of admission/observation: Escalation of care including admission/observation considered Lab Data MDM Lab Attestation statement: I reviewed the patient's lab results. 04/16/24 06:53 04/16/24 06:53 Labs: Lab Results 04/16/24 Range/Units 06:53 WBC 6.3 (4.8-10.8) X10*3/uL RBC 4.62 (4.20-5.50) X10*6/uL Hgb 12.3 (12.0-16.0) g/dl Hct 38.5 (37.0-47.0) % MCV 83.3 (80.0-98.0) fL MCH 26.6 L (27.0-33.0) pg MCHC 31.9 (31.0-35.0) g/dl RDW 14.6 (11.0-16.0) % Plt Count 248 (160-400) X10*3/uL MPV 9.4 (9.4-12.3) fL Immature Gran % (Auto) 0.6 H (0.0-0.4) % Neut % (Auto) 59.4 (45-73) % Lymph % (Auto) 32.3 (20-40) % [place] % (Auto) 5.1 (2-11) % Eos % (Auto) 2.1 (0-4) % Baso % (Auto) 0.5 (0-2) % Lymph # (Auto) 2.0 (1.2-4.9) X10*3/uL [place] # (Auto) 0.3 (0.1-1.2) X10*3/uL Eos # (Auto) 0.1 (0.0-0.4) X10*3/uL Baso # (Auto) 0.0 (0.0-0.2) X10*3/uL Abs Immat Gran (auto) 0.04 H (0.00-0.03) X10*3/uL Absolute Neuts (auto) 3.7 (2.0-8.3) x10*3/uL Absolute Nucleated RBC 0.000 (0.0-0.012) X10*3/uL Nucleated RBC % (auto) 0.0 (0.0-0.2) /100WBC Sodium 141 (135-145) mmol/L Potassium 3.7 D (3.3-5.1) mmol/L Chloride 104 (96-108) mmol/L Carbon Dioxide 26 (22-29) mmol/L Anion Gap 15 (12-20) BUN 13 (9-16) mg/dL Creatinine 0.89 (0.5-1.4) mg/dL Estim Creat Clear Calc 94.9 Estimated GFR > 60 Random Glucose 163 H (60-115) mg/dL Calcium 9.3 (8.4-10.2) mg/dL Total Bilirubin 0.2 (0.0-1.0) mg/dL Direct Bilirubin < 0.2 (0.0-0.5) mg/dL AST 17 (5-31) U/L ALT 17 (0-31) U/L Alkaline Phosphatase 90 (39-117) U/L Troponin I High Sens < 2.7 (<3.5-17.0) ng/L Total Protein 6.9 (6.5-8.0) g/dL Albumin 3.7 (3.5-5.0) g/dL Independent Interpretation I performed an independent interpretation of an: EKG Interpretation: My independent interpretation patient's 12 EKG done at 06:43 hours is as follows: Normal sinus rhythm rate of 95, normal VT interval, QRS duration QTC interval, Q-wave lead 3 with poor R-wave progression V1 and V3, no ST segment elevation, no ST segment depression, no PACs, no PVCs Radiology Impression Discussion of test interpretation with radiology: I have reviewed the radiologist's reading. Independent Historian Clinical information obtained from an independent historian. History obtained from or confirmed by: Spouse Chronic Conditions Patient?s care impacted by: Diabetes and Hypertension Discharge Plan Discharge Clinical Impression: Chest pain, Anxiety Patient Disposition: Home, Self-Care Instructions: Chest Pain (ED) Additional Instructions: Your laboratory evaluation was unremarkable. Your EKG was normal. At this time I do not think that your chest pain was caused by your heart and may be anxiety related. Continue taking medications as prescribed by your providers Follow-up with your doctor in 2 days. Please return to the emergency department if your symptoms get worse or if you develop any symptoms that are concerning to you. Prescriptions: No Action ketorolac 10 mg tablet 10 mg PO Q6H PRN (Reason: pain) 5 Days Qty: 20 0RF Rx Instructions: Patient received Toradol in the emergency room. lidocaine [Lidoderm] 5 % adhesive patch,medicated 1 patch topical DAILY Qty: 15 0RF Rx Instructions: leave on most painful area for up to 12 hrs naproxen 500 mg tablet 500 mg PO Q8-12H PRN (Reason: pain (scale score 4-6)) Qty: 20 0RF cyclobenzaprine 5 mg tablet 5 mg PO Q8H PRN (Reason: muscle spasm) Qty: 7 0RF koiyontkyd-ztgxuescwfscm-blwb 50-325-40 mg tablet 1 tab PO Q6H PRN (Reason: haeadace) Qty: 20 0RF Interventions: ED Discharge Assessment Last Done: 04/16/24 10:48 Discharge Date/Time: 04/16/24 11:04 Print Language: Zambian
[2024-04-16 06:58] LABS: MANUAL DIFF FLAG NO
[2024-04-16 07:00] LABS: Basophils Percent Auto 0.5 % (0-2); Eosinophils Absolute Auto 0.1 X10*3/uL (0.0-0.4); Eosinophils Percent Auto 2.1 % (0-4); Hematocrit 38.5 % (37.0-47.0); Hemoglobin 12.3 g/dl (12.0-16.0); Imm Gran Abs Auto 0.04 X10*3/uL (0.00-0.03); Imm Gran Pct Auto 0.6 % (0.0-0.4); Lymphocytes Percent Auto 32.3 % (20-40); Mean Corpuscular HGB Conc 31.9 g/dl (31.0-35.0); Mean Corpuscular Hemoglobin 26.6 pg (27.0-33.0); Mean Corpuscular Volume 83.3 fL (80.0-98.0); Mean Platelet Volume 9.4 fL (9.4-12.3); Monocytes Absolute Auto 0.3 X10*3/uL (0.1-1.2); Monocytes Percent Auto 5.1 % (2-11); Neutrophils Absolute Auto 3.7 x10*3/uL (2.0-8.3); Neutrophils Percent Auto 59.4 % (45-73); Platelet Count 248 X10*3/uL (160-400); Red Blood Count 4.62 X10*6/uL (4.20-5.50); Red Cell Distribution Width 14.6 % (11.0-16.0); White Blood Count 6.3 X10*3/uL (4.8-10.8)
[2024-04-16 07:18] LABS: Alanine Aminotransferase 17 U/L (0-31); Albumin Level 3.7 g/dL (3.5-5.0); Alkaline Phosphatase 90 U/L (39-117); Anion Gap 15 (12-20); Aspartate Amino Transferase 17 U/L (5-31); Bilirubin Direct < 0.2 mg/dL (0.0-0.5); Bilirubin Total 0.2 mg/dL (0.0-1.0); Blood Urea Nitrogen 13 mg/dL (9-16); Calcium 9.3 mg/dL (8.4-10.2); Carbon Dioxide 26 mmol/L (22-29); Chloride 104 mmol/L (96-108); Creatinine Clr Calc Pharmacy 94.9; Estimated Glomerular Filt Rate > 60; Glucose Random 163 mg/dL (60-115); Potassium 3.7 mmol/L (3.3-5.1); Sodium 141 mmol/L (135-145); Total Protein 6.9 g/dL (6.5-8.0)
[2024-04-16 07:22] LABS: Troponin-I High Sensitivity < 2.7 ng/L (<3.5-17.0)
[2024-04-16] MEDS: LORazepam 1 MG TABLET 2 MG PO (07:31)
[2024-04-16 10:20] VITALS: BP 128/70; PULSE 88; RESP 16; TEMP 36.6; O2SAT 97
[2024-04-16 10:48] VITALS: BP 128/70; PULSE 88; RESP 16; TEMP 36.6; O2SAT 97
== END 2024-04-16 11:04 | disposition home or self-care (01) ==
PROVIDERS: Emergency Provider Emergency Medicine Emergency Medical Services
DX: R07.9 Chest pain, unspecified (principal); F41.9 Anxiety disorder, unspecified; I10 Essential (primary) hypertension; E11.9 Type 2 diabetes mellitus without complications; Z79.899 Other long term (current) drug therapy
CPT/HCPCS: 36415; 80048; 80076; 84484; 85025; 93005; 99283; 99285

== ENCOUNTER → 2024-04-16 06:33 | Outpatient (BNV) | payer OTHER, SELFPAY | PROVIDERS: Emergency Provider Emergency Medicine Emergency Medical Services; Visit Provider Internal Medicine | DX: R94.31 Abnormal electrocardiogram [ECG] [EKG] (principal) | CPT/HCPCS: 93010 ==

== ENCOUNTER 2024-09-07 06:42 | Emergency (ER) | payer OTHER, SELFPAY ==
--- NOTE | 2024-09-07 | ECG_ITS ---
Test Reason : cp Blood Pressure : */* mmHG Vent. Rate : 98 BPM Atrial Rate : 98 BPM P-R Int : 130 ms QRS Dur : 86 ms QT Int : 354 ms P-R-T Axes : 58 9 20 degrees QTcB Int : 451 ms Normal sinus rhythm Normal ECG When compared with ECG of 16-Apr-2024 06:43, No significant change was found Referred By: Generic ED Physician Electronically Signed By: CHRISTIANO PAUL MD
--- NOTE | ~2024-09-07 | XR_ITS ---
CLINICAL HISTORY: chest pain 2 view chest x-ray Comparison: 11/12/2022 Findings: The lungs are clear. Heart size is normal. No acute fracture. IMPRESSION: 1. No acute findings. This document has been electronically signed by: Socrates Alvarez MD on 09/07/2024 07:28:22
[2024-09-07 06:46] VITALS: BP 156/85; PULSE 99; RESP 18; TEMP 36.5; O2SAT 99; BMI 40.8
[2024-09-07 07:15] LABS: Hematocrit 36.9 % (37.0-47.0); Mean Corpuscular HGB Conc 32.5 g/dl (31.0-35.0); Mean Corpuscular Hemoglobin 25.6 pg (27.0-33.0); Mean Corpuscular Volume 78.7 fL (80.0-98.0); Mean Platelet Volume 9.7 fL (9.4-12.3); Platelet Count 219 X10*3/uL (160-400); Red Blood Count 4.69 X10*6/uL (4.20-5.50); Red Cell Distribution Width 15.1 % (11.0-16.0); White Blood Count 6.6 X10*3/uL (4.8-10.8)
--- NOTE | 2024-09-07 07:19 | ED_ITS ---
HPI - Chest Pain General Chief Complaint: Chest Pain Stated Complaint: chest pain Time Seen by Provider: 09/07/24 07:19 Source: patient Mode of arrival: ambulatory Limitations: no limitations History of Present Illness ED Provider: Noemi Correa PA-C HPI narrative: Patient is a 49 year old assigned female at with a history of HTN and DM presenting to the emergency department today with left sided chest pressure and intermittent SOB. Patient states that last night she developed left sided chest pain with intermittent shortness of breath. Patient denies any recent travel, oral contraceptive use, or tobacco use. Patient denies any dizziness, lightheadedness, abdominal pain, nausea, vomiting, fever, chills, blurry vision, double vision, loss of vision, difficulty breathing, back pain, night sweats, pain with urination, increased urinary frequency, increased urinary urgency, blood in her urine or stool, syncope or a near syncopal episode, recent trauma or falls, bowel incontinence, bladder incontinence, or any other complaints at this time. Related Data Previous Rx's ?Medication ?Instructions ?Recorded ketorolac 10 mg tablet 10 mg PO Q6H PRN pain 5 days #20 11/12/22 tabs kwmngigtxj-jzecitpaetwtf-iqibzaen 1 tab PO Q6H PRN haeadace #20 tabs 07/27/23 50 mg-325 mg-40 mg tablet cyclobenzaprine 5 mg tablet 5 mg PO Q8H PRN muscle spasm #7 10/27/23 tabs lidocaine 5 % topical patch 1 patch topical DAILY #15 ea 10/27/23 (Lidoderm) naproxen 500 mg tablet 500 mg PO Q8-12H PRN pain (scale 10/27/23 score 4-6) #20 tabs Allergies Allergy/AdvReac Type Severity Reaction Status Date / Time Penicillins [PENICILLINS] Allergy Intermediate RASH Verified 09/07/24 06:52 penicillin V Allergy Unknown Rash Verified 09/07/24 06:52 Review of Systems 2 Constitutional: Constitutional: Reports no additional constitutional complaints, Denies chills, Denies fever(s) and Denies night sweats Eyes: Eyes: Reports no additional eye complaints, Denies blurry vision, Denies change in vision, Denies diplopia, Denies eye discharge, Denies loss of vision and Denies eye pain ENT: Denies dizziness Cardiovascular: Cardiovascular: Reports no additional cardiovascular complaints, Reports chest pain, Denies lightheadedness, Denies Loss of Consciousness and Reports dyspnea (intermittent) Respiratory: Respiratory: Reports no additional respiratory complaints and Reports dyspnea (intermittent) Gastrointestinal: Gastrointestinal: Reports no additional gastrointestinal complaints, Denies abdominal pain, Denies melena, Denies hematochezia, Denies change in bowel habits and Denies change in stool character Genitourinary: Genitourinary: Denies hematuria, Denies urinary frequency, Denies dysuria, Denies urinary incontinence, Denies urinary hesitancy and Denies urinary urgency Musculoskeletal: Musculoskeletal: Reports no additional musculoskeletal complaints, Denies numbness and Denies tingling Neurologic: Denies dizziness, Denies loss of vision, Denies numbness and Denies tingling Psychiatric: Psychiatric: Reports no additional psychiatric complaints Endocrine: Endocrine: Reports no additional endocrine complaints Hematologic/Lymphatic: Hematologic/Lymphatic: Reports no additional hematologic/lymphatic complaints Allergic/Immunologic: Allergic/Immunologic: Reports no additional allergic/immunologic complaints PMFSH Past Medical History Attestation statement: The following information was validated with the patient. Source: old records reviewed and nursing notes reviewed Social History Social History Alcohol intake: current Alcohol intake frequency: holidays/special occasions only Alcohol type: wine Smoked in Last 30 Days: No Use of substances other than those prescribed or required for medical reasons: No Advance Directives: No Advance Directives Information Provided: Yes Patient : No Physical Exam 2 Vital Signs: Vital Signs: Last Vital Signs Temp 97.8 F 09/07/24 10:01 Pulse 92 09/07/24 10:01 Resp 11 L 09/07/24 10:01 BP 135/85 09/07/24 10:01 Pulse Ox 98 09/07/24 10:01 O2 Del Method Room Air 09/07/24 10:01 BMI result Body Mass Index 40.8 Const: General: cooperative, no acute distress, alert and awake Nutritional Appearance: well nourished Orientation/consciousness: patient oriented x3 Limitations: no limitations HEENT: Head: Yes normal to inspection and Yes atraumatic Ears: hearing grossly normal bilaterally and external ears normal General nose exam: Normal external nose present, no nasal discharge noted and no epistaxis Face and sinus: Yes normal facial exam, No abrasion and No laceration Mouth: Normal oral and palatal mucosa present, no drooling and no muffled voice Eyes: General: appearance normal, both eyes and all related structures P eriorbital: periorbital findings normal Eyelids: Yes eyelids normal C onjunctivae: conjunctivae normal Pupils: Equal, round and reactive pupils present EOM: EOMs intact bilaterally Neck: Neck: Yes normal visual inspection, Yes full ROM and Yes no lymphadenopathy Chest: Chest palpation & inspection: normal inspection of the chest Resp: Effort & Inspection: normal respiratory effort and able to speak in complete sentences GI: Inspection: Yes normal to inspection Neuro: General: patient oriented x3, moves all extremities and CN's II-XI intact bilaterally Cranial nerves: Yes Equal, round and reactive pupils present Cognition (Neuro): normal cognition Extrem: General: Yes normal to inspection, Yes full ROM and Yes capillary refill normal Psych: Appearance: grossly normal Mental Status: mental status grossly normal Affect: normal affect Attitude: cooperative Thought process: N ormal thought process present Thought content: Normal thought content present Insight: Good insight present (Psych) Medications Administered Discontinued Medications Generic Name Dose Route Start Last Admin Trade Name Davideq PRN Reason Stop Dose Admin Ketorolac Tromethamine 15 mg 09/07/24 07:32 09/07/24 07:44 Ketorolac Tromethamine 15 Mg/Ml Vial IM 09/07/24 07:33 15 mg ONCE ONE Administration Medical Decision Making Medical Decision Making [facility] Narrative: Patient is a 49 year old assigned female at with a history of HTN and DM presenting to the emergency department today with left sided chest pressure and intermittent SOB. Patient's physical exam was unremarkable. Patient's blood work was unremarkable. Patient's EKG was unremarkable. Patient's chest x-ray showed no acute process. I explained my physical exam findings as well as all test results to the patient. I answered all questions asked by the patient. I stressed the importance of the patient taking her medication as directed (either prescribed or as the over the counter packaging recommends). I stressed the importance of the patient following up with her primary care provider. I stressed the importance of the patient returning to the emergency department immediately if her symptoms were to worsen or if she were to develop any dizziness, shortness of breath, difficulty breathing, chest pain, blurry vision, loss of vision, nausea, vomiting, abdominal pain, fever, chills, back pain, or any other complaints. Patient verbalized agreement and understanding with this treatment plan and discharge. Differential Diagnosis Differential Diagnoses: The differential diagnosis associated with the presentation includes Chest pain Atypical chest pain NSTEMI STEMI Costochondritis Pleurisy Admission/Observation Consideration of admission/observation: Escalation of care including admission/observation considered Patient would have been admitted to the hospital had her work up had any findings where hospital admission was appropriate and her clinical presentation warranted hospital admission. Lab Data [facility] Lab Attestation statement: I reviewed the patient's lab results. My interpretation of these results are in the MDM Rationale portion of this note. 09/07/24 07:09 09/07/24 07:09 Labs: Lab Results 09/07/24 09/07/24 Range/Units 07:09 08:49 WBC 6.6 (4.8-10.8) X10*3/uL RBC 4.69 (4.20-5.50) X10*6/uL Hgb 12.0 (12.0-16.0) g/dl Hct 36.9 L (37.0-47.0) % MCV 78.7 L (80.0-98.0) fL MCH 25.6 L (27.0-33.0) pg MCHC 32.5 (31.0-35.0) g/dl RDW 15.1 (11.0-16.0) % Plt Count 219 (160-400) X10*3/uL MPV 9.7 (9.4-12.3) fL Absolute Nucleated RBC 0.000 (0.0-0.012) X10*3/uL Nucleated RBC % (auto) 0.0 (0.0-0.2) /100WBC PT 11.4 (10.9-12.4) SEC INR 1.0 (0.9-1.1) Sodium 139 (135-145) mmol/L Potassium 4.1 (3.3-5.1) mmol/L Chloride 104 (96-108) mmol/L Carbon Dioxide 28 (22-29) mmol/L Anion Gap 11 L (12-20) BUN 16 (9-16) mg/dL Creatinine 0.82 (0.5-1.4) mg/dL Estim Creat Clear Calc 104.3 Estimated GFR > 60 Random Glucose 231 H (60-115) mg/dL Calcium 8.8 (8.4-10.2) mg/dL Magnesium 1.8 (1.6-2.6) mg/dL Total Bilirubin 0.3 (0.0-1.0) mg/dL AST 20 (5-31) U/L ALT 19 (0-31) U/L Alkaline Phosphatase 112 (39-117) U/L Troponin I High Sens < 2.7 < 2.7 (<3.5-17.0) ng/L Total Protein 7.1 (6.5-8.0) g/dL Albumin 3.7 (3.5-5.0) g/dL Lipase 20 (8-78) U/L Influenza Type A (PCR) NEGATIVE (Negative) Influenza Type B (PCR) NEGATIVE (Negative) RSV RNA Qual (PCR) NEGATIVE (Negative) SARS-CoV-2 RNA (RT-PCR) NEGATIVE (Negative) Independent Interpretation I performed an independent interpretation of an: EKG and Plain X-Ray Interpretation: My interpretation is in agreement with the radiologist's impression of this imaging study. L CLINICAL HISTORY: chest pain 2 view chest x-ray Comparison: 11/12/2022 Findings: The lungs are clear. Heart size is normal. No acute fracture. IMPRESSION: 1. No acute findings. This document has been electronically signed by: Socrates Alvarez MD on 09/07/2024 07:28:22 Dictated By: Socrates Alvarez MD Signed By: Electronically signed by Socrates Alvarez MD 09/07/24 0729 I independently interpreted this EKG and am in agreement with the below findings: Vent. Rate: 98 BPM Atrial Rate: 98 BPM P-R Int: 130 ms QRS Dur: 86 ms QT Int: 354 ms P-R-T Axes: 58 9 20 degrees QTcB Int: 451 ms Normal sinus rhythm Normal ECG When compared with ECG of 16-Apr-2024 06:43, No significant change was found DD/ [id number] Radiology Impression Discussion of test interpretation with radiology: I have reviewed the radiologist's reading. Discharge Plan Discharge Clinical Impression: Atypical chest pain Patient Disposition: Home, Self-Care Instructions: Chest Wall Pain (ED) Additional Instructions: Your work up today was reassuring for no emergent cause of your symptoms. Follow up with your primary care provider. Return to the emergency department immediately if your symptoms worsen or if you develop any numbness, tingling, dizziness, shortness of breath, difficulty breathing, chest pain, blurry vision, loss of vision, nausea, vomiting, abdominal pain, fever, chills, back pain, or any other complaints. Please see the information below about our Patient Portal. If you are not yet enrolled in the [facility] Patient Portal, you will receive an enrollment email invitation following your visit to any [facility] setting. You may also self-enroll in the Patient Portal by visiting our website: [email or web address] The following information is required to access the Patient Portal: - Your [facility] Medical Record Number - Your personal home email address (must match what is in your electronic medical record, Registration staff can assist with this) - Name - Date of Capabilities of the Patient Portal: - Message some providers - View upcoming appointments - Access your health summary, medical history, and visit history - View current conditions and allergies - View procedure and lab results - View your medications, including guidelines, side effects, and precautions - Complete pre-appointment questionnaires requested by your provider - Ready summary reports of your office visits and procedures To access the Patient Portal Mobile [employer], follow these directions: - Search [employer] in the [employer] Store or [employer] Store - Download the [employer] - Search for [facility] - Enter your login/password Prescriptions: No Action ketorolac 10 mg tablet 10 mg PO Q6H PRN (Reason: pain) 5 Days Qty: 20 0RF Rx Instructions: Patient received Toradol in the emergency room. lidocaine [Lidoderm] 5 % adhesive patch,medicated 1 patch topical DAILY Qty: 15 0RF Rx Instructions: leave on most painful area for up to 12 hrs naproxen 500 mg tablet 500 mg PO Q8-12H PRN (Reason: pain (scale score 4-6)) Qty: 20 0RF cyclobenzaprine 5 mg tablet 5 mg PO Q8H PRN (Reason: muscle spasm) Qty: 7 0RF nmlajykeyd-uehrsjrxjwuyc-sixz 50-325-40 mg tablet 1 tab PO Q6H PRN (Reason: haeadace) Qty: 20 0RF Referrals: Tapan Mendoza MD [Primary Care Provider] - Interventions: ED Discharge Assessment Last Done: 09/07/24 10:01 Discharge Date/Time: 09/07/24 10:01 Print Language: Guyanese
[2024-09-07 07:26] LABS: Prothrombin Time 11.4 SEC (10.9-12.4)
--- NOTE | 2024-09-07 07:30 | PC.NURSE ---
patient a&ox3, labs/ekg performed in triage, awake overnight monitor applied, vitals stable, lungs clear throughout- rr equal non labored, pt c/o 12/25 chest discomfort, call rios within reach, plan of care ongoing
--- OUTSIDE RECORDS SUMMARY | 2024-09-07 07:38 | XMS_ITS | Encounter Summary ---
Author Organization [employer] [address] Care Team Providers Care Utilities Service Investigator Name Role Phone Tapan Mendoza MD Primary Care Pr ovider Reason for Visit * Reason Onset Date Comments Medication Problem 08/26/2024 lispro Encounter Details Date Type Department Care Team ([facility] st Contact Info) Description 08/26/2024 Telephone Endocrinology - [place] [address] [place] [phone] Soraida Ramirez PA [address] [place] [address] Medication Problem (lispro) Social History Tobacco Use Types Packs/Day Years Used Date Smoking Tobacco: Former Cigarettes Smokeless Tobacco: Never Alcohol Use Standard Drinks/Week Comments No 0 (1 standard drink = 0.6 oz pur e alcohol) Comments No Sex and Gender Information Value Date Recorded Sex Assigned at Female 04/15/2024 9:50 AM EDT Legal Sex Female 8:08 AM EDT Gender Identity Female 04/15/2024 9:50 AM EDT Sexual Orientation Straight 04/15/2024 9: 50 AM EDT documented as of this encounter Ordered Prescriptions Prescription Sig Dispense Quantity Refills Last Filled Start Date End Date insulin aspart, niacinamide, (Fiasp FlexTouch U-100 Insulin) 100 unit/mL (3 mL) injection pen Inject 4-20 Units into the skin 3 times daily. <70: 0 units, 71-100: 4 units, 101-150: 8 units, 151-200: 10 units, 201-250: 12 units, 251-300: 14 units, 301-350: 16units, 351-400: 18 units, >400: call me. Plus 2 units before lunch and dinner. 45 mL 2 09/01/2024 documented in this encounter Progress Notes * JERMAN Isaacs - 09/01/2024 3:32 PM EDT Fiasp ordered. * Dede Caraballo - 08/26/2024 1:55 PM EDT Medication Problem: What is the name of the medication patient is having a problem with?: lispro What is the problem?: Lispro is not covered but alternative is fiasp flextouch pen, please sent Rx to [facility] Who is calling about the problem? : The patient Is this a NEW medication?: no How long has the patient been taking this medication? Who prescribed this medication for the patient? Soraida Ramirez Who is patients PCP?: Tapan Mendoza MD Payor: [employer] [facility] / Plan: [employer] [facility] / Product Type: *No Product type* / documented in this encounter Plan of Treatment Upcoming Encounters Date Type Department Care Team (Late st Contact Info) Description 09/10/2024 10:00 AM EDT Office Visit Adult Medicine [facility] [address] [place] [phone] Swetha Grant PA [address] [place] [address] 09/16/2024 3:20 PM EDT Office Visit Gastroenterology [facility] [address] [facility] [address] [place] [phone] Enriqueta Flores PA [address] [place] [address] [place] [address] 09/17/2024 2:30 PM EDT Office Visit Orthopedic Surgery - [place] 175 [facility] 140 [place] [phone] Handy Johnson MD 175 [facility] 140 [place] [address] 09/29/2024 2:00 PM EDT Office Visit Endocrinology [facility] [address] [place] [phone] Soraida Ramirez PA [address] [place] [address] documented as of this encounter Visit Diagnoses Not on filedocumented in this encounter Discontinued Medications Medication Sig Discontinue Reason Start Date End Da te insulin lispro (HumaLOG KwikPen) 100 unit/mL injection pen Inject 4-20 Units into the skin 3 times daily. <70: 0 units, 71-100: 4 units, 101-150: 8 units, 151-200: 10 units, 201-250: 12 units, 251-300: 14 units, 301-350: 16units, 351-400: 18 units, >400: call me. Plus 2 units before lunch and dinner. 06/05/2024 09/01/2024 documented as of this encounter Care Teams Utilities Service Investigator Relationship Specialty Start Date End Date Tapan Mendoza MD [address] [place] [address] PCP - General 08/16/22 documented as of this encounter
--- OUTSIDE RECORDS SUMMARY | 2024-09-07 07:38 | XMS_ITS | Encounter Summary ---
Author Organization [place] [address] Care Team Providers Care Maintenance Shop Technician Name Role Phone Tapan Mendoza MD Primary Care Pr ovider Reason for Visit * Reason Onset Date Comments PA for trulicity 09/02/2024 Encounter Details Date Type Department Care Team (Late st Contact Info) Description 09/02/2024 Telephone [facility] [place] [facility] [phone] [place] [address] Charlotte Sarabia MA PA for trulicity Social History Tobacco Use Types Packs/Day Years [...] AM EDT documented as of this encounter Progress Notes * Charlotte Sarabia MA - 09/02/2024 11:50 AM EDT Pa request sent to insurance for her trulicity. Pt sent my chart message that its been 2 weeks she's waiting for a PA to be done. I explained that the PA depart is backed up and they take care of ourmeds but since she has been waiting so long I went ahead an submit it. As urgent! I received confirmation it was sent, its in my file cabinet. documented in this encounter Plan of Treatment Upcoming Encounters Date Type Department Care Team (Late st Contact Info) Description 09/10/2024 10:00 AM EDT Office Visit Adult Medicine [facility] [address] [place] [address] Swetha Grant PA [address] [place] [address] 09/16/2024 3:20 PM EDT Office Visit Gastroenterology [facility] [address] [phone] Enriqueta Flores PA 175 [facility] 200 [place] [address] 09/17/2024 2:30 PM EDT Office Visit Orthopedic Surgery [facility] 175 [facility] 140 [place] [phone] Handy Johnson MD [address] [address] 09/29/2024 2:00 PM EDT Office Visit Endocrinology [address] [phone] Soradia Ramirez PA [address] [place], [place] documented as of this encounter Visit Diagnoses Not on filedocumented in this encounter Care Teams Maintenance Shop Technician Relationship Specialty Start Date End Date Tapan Mendoza MD [address] [place] [address] PCP - General 08/16/22 documented as of this encounter
--- OUTSIDE RECORDS SUMMARY | 2024-09-07 07:38 | XMS_ITS | Encounter Summary ---
Author Organization [place] [address] Care Team Providers Care Film Editor Name Role Phone Tapan Mendoza MD Primary Care Pr ovider Reason for Visit * Reason Onset Date Comments Appointment 09/05/2024 Encounter Details Date Type Department Care Team (Late st Contact Info) Description 09/05/2024 Telephone Endocrinology - [place] [address] [place], [place] [phone] Soraida Ramirez PA [address] [place] [address] Appointment Social History Tobacco Use Types Packs/Day Years [...] Progress Notes * Charlotte Sarabia MA - 09/05/2024 12:50 PM EDT Called pt, appt for today was canceled and I r/s her appt with her on the phone. * Safia Lr - 09/05/2024 10:19 AM EDT Patient had an appointment for today and wanted to re schedule because she was not feeling well butI can't find in follow appointment slots to put her in before provider leaves on 11/16/24. Please advise patient. She can be reached at [phone] documented in this encounter Plan of Treatment Upcoming Encounters Date Type Department Care Team (Late st Contact Info) Description 09/10/2024 10:00 AM EDT Office Visit Adult Medicine [facility] [address] [place] [address] Swetha Grant PA [address] [place] [address] 09/16/2024 3:20 PM EDT Office Visit Gastroenterology - [place] [address] [phone] Enriqueta Flores PA [address] [address] 09/17/2024 2:30 PM EDT Office Visit Orthopedic Surgery - [place] [address] [phone] Handy Johnson MD [address] [address] 09/29/2024 2:00 PM EDT Office Visit Endocrinology [address] [phone] Soraida Ramirez PA [address] [place], [place] documented as of this encounter Visit Diagnoses Not on filedocumented in this encounter Care Teams Film Editor Relationship Specialty Start Date End Date Tapan Mendoza MD [address] [place] [address] PCP - General 08/16/22 documented as of this encounter
--- OUTSIDE RECORDS SUMMARY | 2024-09-07 07:38 | XMS_ITS | Encounter Summary ---
Author Organization [place] [address] Care Team Providers Care Medical Biller Coder Name Role Phone Tapan Mendoza MD Primary Care Pr ovider Reason for Visit * Reason Onset Date Comments PRIOR AUTHORIZATION 08/26/2024 Encounter Details Date Type Department Care Team (Late st Contact Info) Description 08/26/2024 Telephone Endocrinology - [place] [address] [place] [address] Soraida Ramirez PA [address] [place] [address] PRIOR AUTHORIZATION Social History Tobacco Use Types Packs/Day Years [...] as of this encounter Progress Notes * Gogo Gonzalez - 08/26/2024 10:32 AM EDT Prior Authorization for Medication-do not complete and send this encounter unless you have the fax from the pharmacy. Is this a Cover My Meds request: [place] of Medication Trulicity Dose of Medication 4.5 MG What is the RX # from the faxed refill? [id number] How does patient take this med? Inject 0.5 ML (4.5 MG total) under the skin 1 time per week What Pharmacy did the fax come from: [facility] Pharmacy fax #: [phone] documented in this encounter Plan of Treatment Upcoming Encounters Date Type Department Care Team (Late st Contact Info) Description 09/10/2024 10:00 AM EDT Office Visit Adult Medicine [facility] [address] [place] [address] Swetha Grant PA [address] [place] [address] 09/16/2024 3:20 PM EDT Office Visit Gastroenterology [facility] [address] [phone] Enriqueta Flores PA [address] [address] 09/17/2024 2:30 PM EDT Office Visit Orthopedic Surgery [facility] [address] [phone] Handy Johnson MD [address] [address] 09/29/2024 2:00 PM EDT Office Visit Endocrinology [facility] [address] [place] [address] Soraida Ramirez PA [address] [place], [place] documented as of this encounter Visit Diagnoses Not on filedocumented in this encounter Care Teams Medical Biller Coder Relationship Specialty Start Date End Date Tapan Mendoza MD [address] [place] [address] PCP - General 08/16/22 documented as of this encounter
--- OUTSIDE RECORDS SUMMARY | 2024-09-07 07:38 | XMS_ITS | Encounter Summary ---
Author Organization [facility] Address [address] [place] [address] Care Team Providers Care Heart Specialist Name Role Phone Tapan Mendoza MD Primary Care Pr ovider Reason for Visit * Reason Comments Trigger Finger Consult * Consultation (Routine) - Closed Specialty Diagnoses / Procedures Referred By Milady kraft Referred To Contact Orthopedic Surgery / Orthopaedic Surgery Diagnoses Trigger middle finger of right hand Maynor Cheatham, ELI [address] [place] [address] Phone: tel: fax: Xin Cardenas PA [address] [place] [phone] Phone: tel: fax: Referral ID Status Reason Start Date Expiration Date V isits Requested Visits Authorized [id number] Closed Specialty Services Required 08/25/2024 08/25/2025 1 1 Encounter Details Date Type Department Care Team (Late st Contact Info) Description 09/02/2024 2:30 PM EDT Consult Orthopedic Surgery - [place] [address] [phone] Xin Cardenas PA [address] [phone] Trigger ring finger of right hand Social History Tobacco Use Types Packs/Day Years [...] as of this encounter Progress Notes * JERMAN Whitehead - 09/02/2024 2:30 PM EDT CHIEF COMPLAINT: Trigger Finger and Consult of the Right Ring Finger had concerns including Trigger Finger and Consult of the Right Ring Finger. IDENTIFIER: Vanessa Guerra is a 49 y.o. old female SUBJECTIVE: Vanessa Guerra is here for follow up on 09/02/2024 for different problem of right ring trigger finger. She saw Dr. Wong in 2022 for bilateral trigger thumbs. There was plan for surgery which was canceled. Patient cannot recall why it was canceled but she states she is not having any issues with the thumbs. Over the past 2 months she started having triggering of the right ring finger trouble bending and it snapping, worse in the morning. She has not had any treatment for this. She has had prior carpal tunnel surgeries 2 on the right and 1 on the left a couple years ago. She states her hands feel weaker. The biggest issue currently is the right ring trigger finger. She does have diabetes with last hemoglobin A1c 7.1, in May 2024. She is not on blood thinners. She is also seen neurosurgery, Dr. Obrien's office in 2023 approximately 9 years ago she had underwent C5-6 and C6-7 anterior cervical discectomy and fusion. PAST MEDICAL/SURGICAL HISTORY: Patient Active Problem List Diagnosis Date Noted Diabetic retinopathy ([facility]) 03/13/2024 Hypertensive retinopathy 03/13/2024 Hypomagnesemia 09/17/2023 Cervical spondylosis with radiculopathy 08/17/2023 Trigger thumb of both thumbs 08/24/2022 Type II diabetes mellitus with neurological manifestations ([facility]) 03/25/2022 Bilateral carpal tunnel syndrome 09/02/2021 Cervicogenic headache 05/31/2021 Palpitations 08/13/2020 PATRICK (generalized anxiety disorder) 08/01/2019 Cervical myelopathy with cervical radiculopathy ([facility]) 08/30/2017 Essential hypertension 02/15/2017 Gastroesophageal reflux disease 08/02/2015 Fatty liver disease, nonalcoholic 08/02/2015 Iron deficiency anemia due to sideropenic dysphagia 08/02/2015 Severe obesity (BMI 35.0-39.9) with comorbidity ([facility]) 09/15/2014 Vitamin D deficiency 07/07/2013 Dyslipidemia 07/07/2013 Mild depressive disorder 06/07/2005 Past Surgical History: Procedure Laterality Date BELT ABDOMINOPLASTY 2012 PROCEDURE: HISTORICAL TUMMY TUCK CARPAL TUNNEL RELEASE 01/03/2022 PROCEDURE: HISTORICAL CARPAL TUNNEL REL; COMMENT: Right carpal tunnel release, Dr. Obrien CARPAL TUNNEL RELEASE 04/24/2022 PROCEDURE: GA NEUROPLASTY &/TRANSPOS MEDIAN NRV CARPAL TUNNE; COMMENT: Redo right carpal tunnelreleaseDr. Obrien CARPAL TUNNEL RELEASE 09/19/2021 PROCEDURE: GA NEUROPLASTY &/TRANSPOS MEDIAN NRV CARPAL TUNNE; COMMENT: Left carpal tunnel release, Dr. Obrien SECTION PROCEDURE: HISTORICAL DELIVERY; COMMENT: x3: 1992,1998, 2001 CHOLECYSTECTOMY PROCEDURE: HISTORICAL CHOLECYSTECTOMY OTHER SURGICAL HISTORY 08/04/2015 PROCEDURE: GA HYSTEROSCOPY ENDOMETRIAL ABLATION OTHER SURGICAL HISTORY PROCEDURE: GA ANESTHESIA CERVICAL CERCLAGE INCLUDING BIOPSY OTHER SURGICAL HISTORY 12/28/2015 PROCEDURE: GA ARTHRD ANT INTERBODY MIN DSC CRV BELOW C2; COMMENT: C5-6, C6-7 ACDF; Dr. Obrien TUBAL LIGATION 2001 PROCEDURE: HISTORICAL TUBAL LIGATION MEDICATIONS DISCONTINUED/REORDERED: There are no discontinued medications. ACTIVE MEDICATIONS: Current Outpatient Medications on File Prior to Visit Medication Sig Dispense Refill blood sugar diagnostic (FreeStyle Lite Strips) test strip USE TO CHECK BLOOD SUGARS TWICE DAILY 100strip 2 buPROPion XL (WELLBUTRIN XL) 300 mg 24 hr tablet Take 1 tablet (300 mg total) by mouth 1 (one) timeeach day. busPIRone (BUSPAR) 10 mg tablet Take 1 tablet (10 mg total) by mouth 2 (two) times a day. cholecalciferol (VITAMIN D-3) 50 mcg (2,000 unit) capsule Take 1 capsule (2,000 Units total) by mouth 1 (one) time each day. dulaglutide (Trulicity) 4.5 mg/0.5 mL pen injector injection Inject 0.5 mL (4.5 mg total) under theskin 1 (one) time per week. 6 mL 1 FREESTYLE LANCETS MISC USE TO CHECK BLOOD GLUCOSE DAILY DIRECTED hydrOXYzine HCL (ATARAX) 10 mg tablet TAKE ONE (1) TABLET BY MOUTH THREE TIMES A DAY, NEEDED FORANXIETY/PANIC insulin aspart, niacinamide, (Fiasp FlexTouch U-100 Insulin) 100 unit/mL (3 mL) injection pen Inject 4-20 Units into the skin 3 times daily. <70: 0 units, 71- 100: 4 units, 101-150: 8 units, 151-200: 10 units, 201-250: 12 units, 251-300: 14 units, 301-350: 16units, 351-400: 18 units, >400: call me. Plus 2 units before lunch and dinner. 45 mL 2 insulin glargine (Lantus Solostar U-100 Insulin) 100 unit/mL (3 mL) injection pen INJECT INTO SKIN ONCE AT BEDTIME 34 UNITS 30 mL 2 lansoprazole (PREVACID) [address] capsule TAKE 1 CAPSULE BY MOUTH EVERY DAY 90 capsule 3 lisinopriL (PRINIVIL,ZESTRIL) 20 mg tablet Take 1 tablet (20 mg total) by mouth 1 (one) time each day. 90 tablet 1 magnesium oxide 250 mg magnesium tablet Take 1 tablet (250 mg total) by mouth 1 (one) time each day. ondansetron ODT (ZOFRAN-ODT) 4 mg disintegrating tablet TAKE 1 TABLET BY MOUTH EVERY 8 HOURS NEEDED FOR NAUSEA FOR UP TO 30 DAYS. pen needle, diabetic (BD ULTRA-FINE SHORT PEN NEEDLE MISC) Insulin Pen Needle (B-D ULTRAFINE III SHORT PEN) 31G X 8 MM Misc Use with insulin pen 3 times a day. sertraline (ZOLOFT) 100 mg tablet Take 150 mg by mouth daily. 1.5 tablets simvastatin (ZOCOR) 10 mg tablet Take 1 tablet (10 mg total) by mouth at bedtime. [DISCONTINUED] insulin lispro (HumaLOG KwikPen) 100 unit/mL injection pen Inject 4-20 Units into the skin 3 times daily. <70: 0 units, 71-100: 4 units, 101-150: 8 units, 151-200: 10 units, 201-250: 12 units, 251-300: 14 units, 301-350: 16units, 351-400: 18 units, >400: call me. Plus 2 units before lunch and dinner. 45 mL 2 No current facility-administered medications on file prior to visit. ALLERGIES: Allergies Allergen Reactions Penicillins Other Reaction(s): Rash/Dermatitis Tramadol Nausea And Vomiting PHYSICAL EXAM: Visit Vitals OB Status Having periods Smoking Status Former APPEARANCE: Alert and in no acute distress EXTREMITIES: Extremities warm and well perfused without clubbing, cyanosis, or edema Right hand no swelling. Sensation circulation intact distally. She lacks flexion down to plane of palm with the right ring finger by about 3 cm. Pain with flexion of the right ring finger and significant tenderness over A1 juani. No efraín triggering. LABS/IMAGING: Lab Results Component Value Date HGBA1C 7.1 (H) 06/05/2024 Xrays reviewed: None IMPRESSION: 1. Trigger ring finger of right hand PLAN: The details of the visit were reviewed with the patient. Pertinent history, and objective findings were reviewed, along with the diagnoses: Right ring trigger finger. I discussed with patient treatment options. I discussed cortisone injection and discussed risks versus benefits. She states previouscortisone injections to other areas such as her back and her cervical spine have not helped and significantly elevated her blood sugar. She also does have generalized anxiety which does increase withthe cortisone injection. Discussed surgical intervention with A1 juani release of the right ring finger. Because of her anxiety this would be done with conscious sedation. I did explain what it would entail. I did state if we did the cortisone injection I would only do 20 mg and she would have to watch her blood sugars. She declined cortisone injection and she is going to see one of our hand surgeons to discuss right ring finger A1 juani release. She knows that her hemoglobin A1c needs to be under 8, it is currently 7.1. Vanessa Guerra acknowledges understanding of the above plan and agrees to follow recommendations and/or take medications as prescribed. No orders of the defined types were placed in this encounter. @ELECSIG@ documented in this encounter Plan of Treatment Upcoming Encounters Date Type Department Care Team (Late st Contact Info) Description 09/10/2024 10:00 AM EDT Office Visit Adult Medicine [facility] [address] [place] [address] Swetha Grant PA [address] [place] [address] 09/16/2024 3:20 PM EDT Office Visit Gastroenterology [facility] [address] [facility] [address] [place] [phone] Enriqueta Flores PA 175 [facility] [address] [place] [address] 09/17/2024 2:30 PM EDT Office Visit Orthopedic Surgery [facility] [address] [facility] [address] [place] [phone] Handy Johnson MD 175 [facility] [address] [place] [address] 09/29/2024 2:00 PM EDT Office Visit Endocrinology [address] [phone] Soraida Ramirez PA [address] [place], [place] documented as of this encounter Visit Diagnoses Diagnosis Trigger ring finger of right hand documented in this encounter Orders Outpatient Referral Count Last Ordered Date Fir st Ordered Date AMB REFERRAL TO HAND SURGERY 1 09/02/2024 documented in this encounter Care Teams Heart Specialist Relationship Specialty Start Date End Date Tapan Mendoza MD [address] [place] [address] PCP - General 08/16/22 documented as of this encounter
--- OUTSIDE RECORDS SUMMARY | 2024-09-07 07:38 | XMS_ITS | Clinical Summary ---
Author Organization Patient Business Ser [facility] [place] Address [address] [place] [address] Care Team Providers Care Nursing Department Chairperson Name Role Phone Tapan Mendoza MD Primary Care Pr ovider Allergies Active Allergy Reactions Criticality Noted Date Comments Penicillins 06/07/2005 Other Reaction(s): Rash/Dermatitis Tramadol Nausea And Vomiting 05/05/2022 Medications magnesium oxide 250 mg magnesium tablet Take 1 tablet (250 mg total) by mouth 1 (one) time each day. 12/14/19 24 Active ondansetron ODT (ZOFRAN-ODT) 4 mg disintegrating tablet TAKE 1 TABLET BY MOUTH EVERY 8 HOURS NEEDED FOR NAUSEA FOR UP TO 30 DAYS. 01/29/20 24 Active simvastatin (ZOCOR) 10 mg tablet Take 1 tablet (10 mg total) by mouth at bedtime. 09/27/19 24 Active cholecalciferol (VITAMIN D-3) 50 mcg (2,000 unit) capsule Take 1 capsule (2,000 Units total) by mouth 1 (one) time each day. 09/17/19 24 Active hydrOXYzine HCL (ATARAX) 10 mg tablet TAKE ONE (1) TABLET BY MOUTH THREE TIMES A DAY, NEEDED FOR ANXIETY/SUMEET C 07/04/19 24 Active pen needle, diabetic (BD ULTRA-FINE SHORT PEN NEEDLE MISC) Insulin Pen Needle (B-D ULTRAFINE III SHORT PEN) 31G X 8 MM Misc Use with insulin pen 3 times a day. 05/05/20 22 Active busPIRone (BUSPAR) 10 mg tablet Take 1 tablet (10 mg total) by mouth 2 (two) times a day. 02/17/20 22 Active FREESTYLE LANCETS MISC USE TO CHECK BLOOD GLUCOSE DAILY DIRECTED 01/11/20 22 Active sertraline (ZOLOFT) 100 mg tablet Take 150 mg by mouth daily. 1.5 tablets 09/18/19 21 Active buPROPion XL (WELLBUTRIN XL) 300 mg 24 hr tablet Take 1 tablet (300 mg total) by mouth 1 (one) time each day. 07/13/19 21 Active insulin glargine (Lantus Solostar U-100 Insulin) 100 unit/mL (3 mL) injection pen INJECT INTO SKIN ONCE AT BEDTIME 34 UNITS 30 mL 2 06/05/20 24 Active lansoprazole (PREVACID) [address] capsule TAKE 1 CAPSULE BY MOUTH EVERY DAY 90 capsule 3 07/14/19 25 Active blood sugar diagnostic (FreeStyle Lite Strips) test stripIndications: Type 2 diabetes mellitus with hyperglycemia (CMS/HCC) USE TO CHECK BLOOD SUGARS TWICE DAILY 100 strip 2 07/18/19 25 Active lisinopriL (PRINIVIL,ZESTRIL ) 20 mg tabletIndications :Essential hypertension Take 1 tablet (20 mg total) by mouth 1 (one) time each day. 90 tablet 1 08/26/19 25 Active dulaglutide (Trulicity) 4.5 mg/0.5 mL pen injector injectionIndicati ons:Type II diabetes mellitus with neurological manifestations (CMS/HCC) Inject 0.5 mL (4.5 mg total) under the skin 1 (one) time per week. 6 mL 1 08/27/19 25 Active insulin aspart, niacinamide, (Fiasp FlexTouch U-100 Insulin) 100 unit/mL (3 mL) injection pen Inject 4-20 Units into the skin 3 times daily. <70: 0 units, 71-100: 4 units, 101-150: 8 units, 151-200: 10 units, 201-250: 12 units, 251-300: 14 units, 301-350: 16units, 351-400: 18 units, >400: call me. Plus 2 units before lunch and dinner. 45 mL 2 09/02/19 25 Active tiZANidine (ZANAFLEX) 4 mg tablet Take 1 tablet (4 mg total) by mouth 3 (three) times a day if needed. 09/05/19 24 2024 Discontinued lisinopriL (PRINIVIL,ZESTRIL ) 20 mg tablet Take 1 tablet (20 mg total) by mouth 1 (one) time each day. 09/17/19 24 2024 Discontinued(R eorder) coenzyme Q-10 100 mg capsule Take 1 capsule (100 mg total) by mouth 1 (one) time each day in the evening. 09/17/19 24 2024 Discontinued albuterol HFA (Ventolin HFA) 90 mcg/actuation inhaler 08/13/19 24 2024 Discontinued butalbitaL-acetam inophen 50-325 mg tablet Take 1 tablet by mouth every 4 (four) hours. 2024 Discontinued dulaglutide (Trulicity) 4.5 mg/0.5 mL pen injector injection Inject 0.5 mL (4.5 mg total) under the skin 1 (one) time per week. 2 mL 3 06/05/20 24 2024 Discontinued(R eorder) insulin lispro (HumaLOG KwikPen) 100 unit/mL injection pen Inject 4-20 Units into the skin 3 times daily. <70: 0 units, 71-100: 4 units, 101-150: 8 units, 151-200: 10 units, 201-250: 12 units, 251-300: 14 units, 301-350: 16units, 351-400: 18 units, >400: call me. Plus 2 units before lunch and dinner. 45 mL 2 06/05/20 24 2024 Discontinued Active Problems Problem Noted Date Diagnosed Date Diabetic retinopathy 03/13/2024 Overview (04/07/2024): Mild nonproliferative diabetic retinopathy OD greater than OS. Hypertensive retinopathy 03/13/2024 Overview (04/07/2024): OU Hypomagnesemia 09/17/2023 Cervical spondylosis with radiculopathy 08/17/19 Overview (04/07/2024): Last Assessment & Plan: Isaiah Guerra is about 8 years status post C5-6 and C6-7 anterior cervical discectomy and fusion. She is doing well with regards to her neck until June when she slipped on the ice and fell. She says she did not hit her head or her neck but she has had neck pain and headaches since that time. She had a couple of trips to the emergency room and on 1 occasion had some Imitrex that seem to help her headaches but not the neck pain. CT of the head was negative for acute findings. CT of the cervical spine shows that the hardware is in good position from C5 through the C7. She has a robust fusion at C6-7 and a last robust fusion at C5-6. I went to send her for some plain x-rays with flexion and extension views to rule out any hypermobility. We will obtain an MRI to evaluate for adjacent segment degeneration at C4-5 which could be causing the neck pain, headache, and shoulder pain. I told her I would call her after reviewing the MRI. 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 She notes the numbness tingling and pain has lessened in the right forearm and first 3 digits. She is having no issues with the wound, no drainage, redness, fevers. She had a negative side effects from the tramadol, did not use a postop, is just taking Tylenol. Patient is doing well postop, has a follow-up appointment in [address] Obrien. I asked her to call with any concerns or questions prior to her appointment. All questions answered on today's visit. Cervicogenic headache 05/31/2021 Overview (04/07/2024): 09/05/23: Seen by Family Physiatry - declined nerve block, trigger point, and PT referral Last Assessment & Plan: 6 weeks of headaches and some relief with Imitrex. She has a history of C5-6 and C6-7 anterior cervical discectomy and fusion in 2015. We will obtain some flexion and extension views of the cervical spine. Palpitations 08/13/2020 Overview (04/07/2024): Last Assessment & Plan: There was no arrhythmia associated with her heart racing symptoms with 30-day monitor. Probably there was anxiety component. PATRICK (generalized anxiety disorder) 08/01/2019 Cervical myelopathy with cervical radiculopathy 08/30/2017 Overview (04/07/2024): S/p cervical disc fusion Essential hypertension 02/15/2017 Assessment & Plan (08/25/2024 9:43 AM EDT): Patient is to Continue lisinopril 20 mg daily. R She is to call the office if blood pressure more than 140/90, more than a couple of times. Patient is recommended lifestyle changes including 2 g sodium/Dash Diet and regular exercise as tolerated. She has an appointment to follow-up with care team on September 11, 2023. Orders: lisinopriL (PRINIVIL,ZESTRIL) 20 mg tablet; Take 1 tablet (20 mg total) by mouth 1 (one) time each day. 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 08/02/2015 Severe obesity (BMI 35.0-39.9) with comorbidity 09/15/2014 Vitamin D deficiency 07/07/2013 Dyslipidemia 07/07/2013 Mild depressive disorder 06/07/2005 Encounters Date Type Department Care Team Description 09/05/2024 Telephone Endocrinology - [id number] [place] [address] Soraida Ramirez PA Appointment 09/02/2024 2:30 PM EDT Consult Orthopedic Surgery - [address] [place] [address] Xin Cardenas PA Trigger ring finger of right hand 09/02/2024 Telephone Endocrinology - [id number] [place] [address] Charlotte Sarabia MA PA for trulicity 08/26/2024 Telephone [id number] [place], [place] [phone] Soraida Ramirez PA Medication Problem (lispro) 08/26/[address] [phone] Soraida Ramirez PA PRIOR AUTHORIZATION 08/25/2024 9:41 AM EDT - 08/25/2024 11:59 PM EDT Hospital Encounter XRAY - [address] [phone] Trigger middle finger of right hand; Essential hypertension Discharge Disposition: Home or Self Care 08/25/2024 9:30 AM EDT Office Visit Adult Medicine [address] [phone] Maynor Cheatham, [employer]IELD INST[employer]ER Trigger middle finger of right hand (Primary Dx); Essential hypertension from Last 3 Months Immunizations Name Administration Dates Next Due Diptheria & Tetanus, 6wks to less than 7yo 11/20 Influenza trivalent, 0.5mL, preservative free (Fluarix; FluLaval; Fluzone) ages 6mo and older (Afluria) 3 years and older 03/06/2018 Influenza, Unspecified 08/17/2006 Moderna SARS-CoV-2 COVID-19, mRNA, LNP-S, preservative free 11/05/2020,10/08/2020 Pneumococcal polysaccharide 23 valent (Pneumovax 23) 2yo and older 01/16/2007 Tdap Tetanus diptheria acell ular pertussis (Boostrix; Adacel) 7yo and older 08/30/2017 Surgical History Surgery Date Site/Laterality Comments TUBAL LIGATION 2001 PROCEDURE: HISTORICAL TUBAL LIGATION BELT ABDOMINOPLASTY 2012 PROCEDURE: HISTORICAL TUMMY TUCK CHOLECYSTECTOMY PROCEDURE: HISTORICAL CHOLECYSTECTOMY SECTION PROCEDURE: HISTORICAL DELIVERY; COMMENT: x3: 1993,1998, 2001 OTHER SURGICAL HISTORY 08/04/2015 PROCEDURE: [place] HYSTEROSCOPY ENDOMETRIAL ABLATION OTHER SURGICAL HISTORY PROCEDURE: [place] ANESTHESIA CERVICAL CERCLAGE INCLUDING BIOPSY OTHER SURGICAL HISTORY 12/28/2015 PROCEDURE: [place] ARTHRD ANT INTERBODY MIN DSC CRV BELOW C2; COMMENT: C5-6, C6-7 ACDF; Dr. Obrien CARPAL TUNNEL RELEASE 01/03/2022 PROCEDURE: HISTORICAL CARPAL TUNNEL REL; COMMENT: Right carpal tunnel release, Dr. Obrien CARPAL TUNNEL RELEASE 04/24/2022 PROCEDURE: [place] NEUROPLASTY &/TRANSPOS MEDIAN NRV CARPAL TUNNE; COMMENT: Redo right carpal tunnel release, Dr. Obrien CARPAL TUNNEL RELEASE 09/19/2021 PROCEDURE: [place] NEUROPLASTY &/TRANSPOS MEDIAN NRV CARPAL TUNNE; COMMENT: Left carpal tunnel release, Dr. Obrien Medical History Medical History Date Comments DM2 (diabetes mellitus, type 2) (CMS/HCC) DX:DM2 (diabetes mellitus, t ype 2) ([facility]) Anxiety DX:Anxiety Vitamin D deficiency DX:Vitamin D deficiency Dyslipidemia DX:Dyslipidemia Gastroesophageal reflux disease 08/02/2015 DX:Gastroesophageal reflux disease Fatty liver disease, nonalcoholic 08/02/2015 DX:Fatty liver disease, nonalcoholic Iron deficiency anemia due t o sideropenic dysphagia 08/02/2015 DX:Iron deficiency anemia du e to sideropenic dysphagia Essential hypertension 02/15/2017 DX:Essent ial hypertension Family History Medical History Relation Name Comments Diabetes Father Stroke Maternal Grandmother Heart attack Mother age 47 Other: heart problems Paternal Grandfather Other: heart problems Paternal Grandmother Blindness Neg Hx Cataracts Neg Hx Glaucoma Neg Hx Macular degeneration Neg Hx Strabismus Neg Hx Relation Name Status Comments Brother x2 Alive Father Alive Maternal Grandfather unknown Maternal Grandmother Mother Paternal Grandfather Paternal Grandmother Social History Tobacco Use Types Packs/Day Years Used Date Smoking Tobacco: Former Cigarettes Smokeless Tobacco: Never Tobacco Cessation:Counseling Given: Not Answered Alcohol Use Standard Drinks/Week Comments No 0 (1 standard drink = 0.6 oz pur e alcohol) Comments No Sex and Gender Information Value Date Recorded Sex Assigned at Female 04/15/2024 9:50 AM EDT Legal Sex Female 8:08 AM EDT Gender Identity Female 04/15/2024 9:50 AM EDT Sexual Orientation Straight 04/15/2024 9: 50 AM EDT Obstetrics History Last Filed Vital Signs Vital Sign Reading Time Taken Comments Blood Pressure 132/86 08/25/2024 9:33 AM EDT Pulse 96 08/25/2024 9:21 AM EDT Temperature 36.1 ??C (96.9 ??F) 08/25/2024 9:21 AM ED T Respiratory Rate 18 08/25/2024 9:21 AM EDT Oxygen Saturation 98% 08/25/2024 9:21 AM EDT Inhaled Oxygen Concentration - - Weight 115 kg (252 lb 9.6 oz) 08/25/2024 9:21 AM EDT Height 167.6 cm (5' 6 ) 08/25/2024 9:21 AM EDT Body Mass Index 40.77 08/25/2024 9:21 AM EDT Plan of Treatment Upcoming Encounters Date Type Department Care Team (Late st Contact Info) Description 09/10/2024 10:00 AM EDT Office Visit Adult Medicine [address] [phone] Swetha Grant PA [address] [place] [address] 09/16/2024 3:20 PM EDT Office Visit Gastroenterology [facility] [address] [phone] Enriqueta Flores PA [address] [address] 09/17/2024 2:30 PM EDT Office Visit Orthopedic Surgery [facility] 175 [facility] 140 [place] [phone] Handy Johnson MD 175 [facility] 140 [place] [address] 09/29/2024 2:00 PM EDT Office Visit Endocrinology [address] [phone] Soraida Ramirez PA [address] [place], [place] Health Maintenance Due Date Last Done Comments Breast Cancer Screening 1973 Hepatitis B Vaccines (1 of 3 - 19+ 3-dose series) 1992 Pneumococcal Vaccine: 50+ Years (2 of 2 - PCV) 01/17/2008 01/16/2007 Pneumococcal Vaccine: Pediatrics (0 to 5 Years) and At-Risk Patients (6 to 64 Years) (2 of 2 - PCV) 01/17/2008 01/16/2007 Cervical Cancer Screening: Pap Smear 08/04/2016 08/04/2013, 08/04/2013 HIV Screening 02/15/2022 Hepatitis C Screening 02/15/2022 Social Influencers of Health Screening 02/15/2022 Zoster Vaccines (1 of 2) 2023 COVID-19 Vaccine ( season) 2024 06/12/2021, 11/05/2020, 10/08/2020 Influenza Vaccine (#1) 2024 03/06/2018, 2006 Depression Screening 09/16/2024 09/17/2023 Diabetes: Annual Urine Albumin-Creatinine Ratio (uACR) 09/16/2024 09/17/2023 Diabetes: Blood Sugar Control Test (HGBA1C) 12/04/2024 06/05/2024, 04/15/2024, 01/16/2024, Additional history exists Diabetes: Annual Foot Exam 03/05/2025 03/05/2024 Diabetes: Annual Retina Eye Exam 03/11/2025 03/11/2024 Diabetes: Annual GFR (Glomerular Filtration Rate) 06/05/2025 06/05/2024, 04/15/2024 Hypertension/CHF/CAD Annual BMP Blood Test 06/05/2025 06/05/2024, 04/15/2024 DTaP,Tdap,and Td Vaccines (3 - Td or Tdap) 08/31/2027 08/30/2017, 11/20/2008 Cholesterol Screening (Lipid Panel) 03/05/2029 03/05/2024, 03/05/2024 Colorectal Cancer Screening: Colonoscopy 12/25/2032 12/25/2022 HIB Vaccines Aged Out No longer eligi ble based on patient's age to complete this topic HPV Vaccines Aged Out No longer eligi ble based on patient's age to complete this topic Hepatitis A Vaccines Aged Out No long er eligible based on patient's age to complete this topic IPV Vaccines Aged Out No longer eligi ble based on patient's age to complete this topic MMR Vaccines Aged Out No longer eligi ble based on patient's age to complete this topic Meningococcal ACWY Vaccine Aged Out N o longer eligible based on patient's age to complete this topic Meningococcal B Vacine Aged Out No lo nger eligible based on patient's age to complete this topic RSV Immunization Patients Under 20 months Aged Out No longer eligible based on patient's age to complete this topic Varicella Vaccines Aged Out No longer eligible based on patient's age to complete this topic Procedures Procedure Name Priority Date/Time Associated Diagnosis Comments XR HAND 3+ VIEWS RIGHT Routine 08/25/2024 9:48 AM EDT Trigger middle finger of right hand Essential hypertension COMPREHENSIVE METABOLIC PANEL Routine 06/05/2024 2:41 PM EST Type II diabetes mellitus with neurological manifestations (CMS/HCC) HEMOGLOBIN A1C Routine 06/05/2024 2:41 PM EST Type II diabetes mellitus with neurological manifestations (CMS/HCC) HM DIABETES EYE EXAM Routine 03/11/2024 LIPID PANEL Routine 03/05/2024 HM DIABETES FOOT EXAM Routine 03/05/2024 DEPRESSION SCREENING Routine 09/17/2023 URINE ALBUMIN CREATININE RATIO Routine 09/17/2023 COLONOSCOPY Routine 12/25/2022 HM HPV Routine 08/04/2013 from Last 3 Months or Most Recently Relevant to Health Maintenance Results * XR Hand 3+ Views Right (08/25/2024 9:48 AM EDT) Anatomical Region Laterality Modality Upper Extremities, Hand Right Radiogra phic Imaging 08/25/2024 10:5 1 AM EDT Impressions 08/25/2024 10:52 AM EDT No acute fracture or dislocation of the right hand. -------- FINAL REPORT -------- Dictated By: Shanna Souza Dictated Date: 08/25/2024 10:51 ET Assigned Physician: Shanna Souza Reviewed and Electronically Signed By: Shanna Souza Signed Date: 08/25/2024 10:52 ET Workstation ID: [id number] Transcribed By: Self Edit Transcribed Date: 08/25/2024 10:51 ET Narrative 08/25/2024 10:52 AM EDT HISTORY: pain, ? arthritis/ trigger finger TECHNIQUE: AP, lateral, and oblique radiographs of the right hand COMPARISON: None FINDINGS: There is normal mineralization with no evidence of fracture or malalignment. ??The visualized articulations are normal. ??No significant soft tissue swelling is identified. Procedure Note Shanna Souza MD - 08/25/2024 HISTORY: pain, ? arthritis/ trigger finger TECHNIQUE: AP, lateral, and oblique radiographs of the right hand COMPARISON: None FINDINGS: There is normal mineralization with no evidence of fracture ormalalignment. The visualized articulations are normal. No significantsoft tissue swelling is identified. IMPRESSION: No acute fracture or dislocation of the right hand. -------- FINAL REPORT -------- Dictated By: Shanna Souza Dictated Date: 08/25/2024 10:51 ET Assigned Physician: Shanna Souza Reviewed and Electronically Signed By: Shanna Souza Signed Date: 08/25/2024 10:52 ET Workstation ID: [id number] Transcribed By: Self Edit Transcribed Date: 08/25/2024 10:51 ET us Maynor Cheatham NP IMG XR PROCEDURES Final Resu lt * (ABNORMAL) Hemoglobin A1c (06/05/2024 2:41 PM EST) Hemoglobin A1C 7.1(H) <6.5 % LAB CHEMISTRY METHOD 06/05/2024 8:58 PM EST [facility] Mean Bld Glu Estim. 157 mg/dL LAB CHEMISTRY METHOD 06/05/2024 8:58 PM [facility] Blood Venous blood specimen / Unknown Venipuncture / Unknown 06/05/2024 2:41 PM EST 06/05/2024 2:41 PM EST us Soraida STOLL LAB BLOOD ORDERABLES Final Resul t [facility] [address] [place] [address], [place] [phone] * (ABNORMAL) Comprehensive metabolic panel (06/05/2024 2:41 PM EST) Sodium 138 133 - 145 mmol/L LAB CHEMISTRY METHOD 06/05/2024 6:26 PM [facility] Potassium 4.3 3.5 - 5.5 mmol/L LAB CHEMISTRY METHOD 06/05/2024 6:26 PM [facility] Chloride 103 96 - 110 mmol/L LAB CHEMISTRY METHOD 06/05/2024 6:26 PM [facility] CO2 30 21 - 32 mmol/L LAB CHEMISTRY METHOD 06/05/2024 6:26 PM [facility] Anion Gap 5 3 - 11 LAB CHEMISTRY METHOD 06/05/2024 6:26 PM [facility] Glucose 101(H) 70 - 100 mg/dL LAB CHEMISTRY METHOD 06/05/2024 6:26 PM [facility] BUN 13 5 - 25 mg/dL LAB CHEMISTRY METHOD 06/05/2024 6:26 PM [facility] Creatinine 1.03 0.50 - 1.10 mg/dL LAB CHEMISTRY METHOD 06/05/2024 6:26 PM [facility] eGFR 66 >=60 mL/min/1. 73m2 LAB CHEMISTRY METHOD 06/05/2024 6:26 PM [facility] Comment:Calculation based on the??Chronic Kidney Disease Epidemiology Collaboration (CKD-EPI) equation refit??without adjustment for race. BUN/Creatinine Ratio 12.6 LAB CHEMISTRY METHOD 06/05/2024 6:26 PM [facility] Calcium 9.6 8.5 - 10.5 mg/dL LAB CHEMISTRY METHOD 06/05/2024 6:26 PM [facility] AST (SGOT) 14 10 - 42 unit/L LAB CHEMISTRY METHOD 06/05/2024 6:26 PM [facility] ALT (SGPT) 22 10 - 60 unit/L LAB CHEMISTRY METHOD 06/05/2024 6:26 PM [facility] Alkaline Phosphatase 111 42 - 121 unit/L LAB CHEMISTRY METHOD 06/05/2024 6:26 PM [facility] Total Protein 7.5 6.0 - 8.0 g/dL LAB CHEMISTRY METHOD 06/05/2024 6:26 PM [facility] Albumin 3.7 3.2 - 5.0 g/dL LAB CHEMISTRY METHOD 06/05/2024 6:26 PM [facility] Total Bilirubin 0.2 0.0 - 1.4 mg/dL LAB CHEMISTRY METHOD 06/05/2024 6:26 PM [facility] Blood Venous blood specimen / Unknown Venipuncture / Unknown 06/05/2024 2:41 PM EST 06/05/2024 2:41 PM EST us Soraida STOLL LAB BLOOD ORDERABLES Final Resul t [facility] [address] [place] [address], [place] [phone] * Diabetes Eye Exam (03/11/2024) Diabetes: Annual Retina Eye Exam Abstracted Historical Provider HEALTH MAINTENANCE Final Result * Diabetes Foot Exam (03/05/2024) [facility] Diabetes: Annual Foot Exam Abstracted [facility] Provider HEALTH MAINTENANCE Final Result * (ABNORMAL) Lipid panel (03/05/2024) [facility] LDL/HDL Ratio 4 0 - 4 Triglycerides 240(A) 0 - 150 mg/dL Cholesterol 190 0 - 200 mg/dL HDL 55 >=40 mg/dL LDL Cholesterol 87 0 - 100 mg/dL Blood Venous blood specimen / Unknown Result [facility] Provider LAB BLOOD ORDERABLES Parris l Result * Urine Albumin Creatinine Ratio (09/17/2023) [facility] Urine Albumin Creatinine Ratio Abstracted Result [facility] Provider HEALTH MAINTENANCE Final Result * Depression Screening (09/17/2023) [facility] Depression Screening Abstracted Result [facility] Provider HEALTH MAINTENANCE Final Result * Colonoscopy (12/25/2022) [facility] Colonoscopy No Interpretation , Abstracted Anatomical Region Laterality Modality Other Result [facility] Provider HEALTH MAINTENANCE Final Result * Cervical Cancer Screening: HPV (08/04/2013) [facility] Cervical Cancer Screening: HPV Not Detected, Abstracted Result [facility] Provider HEALTH MAINTENANCE Final Result from Last 3 Months or Most Recently Relevant to Health Maintenance Insurance [employer] Care Teams Nursing Department Chairperson Relationship Specialty Start Date End Date Tapan Mendoza MD [address] [place] [id number] PCP - General 08/16/22
--- OUTSIDE RECORDS SUMMARY | 2024-09-07 07:38 | XMS_ITS | Encounter Summary ---
Author Organization [employer] Address [address] [place] [address] Care Team Providers Care Access Spec Name Role Phone Taapn Mendoza MD Primary Care Pr ovider Reason for Referral * Consultation (Routine) - Closed Specialty Diagnoses / Procedures Referred By Milady kraft Referred To Contact Orthopedic Surgery / Orthopaedic Surgery Diagnoses Trigger middle finger of right hand Maynor Cheatham NP [address], [place] Phone: tel: fax: Xin Cardenas PA [address] [place] [phone] Phone: tel: fax: Referral ID Status Reason Start Date Expiration Date V isits Requested Visits Authorized [id number] Closed Specialty Services Required 08/25/2024 08/25/2025 1 1 Reason for Visit * Reason Comments Hand Pain 4th finger on the ri ght hand is painful and it gets stuck cramps up hard to move Encounter Details Date Type Department Care Team (Late st Contact Info) Description 08/25/2024 9:30 AM EDT Office Visit Adult Medicine [address] [phone] Maynor Cheatham, ELI [address] [place] [phone] Trigger middle finger of right hand (Primary Dx); Essential hypertension Social History Tobacco Use Types Packs/Day Years [...] AM EDT documented as of this encounter Last Filed Vital Signs Vital Sign Reading [...] Mass Index 40.77 08/25/2024 9:21 AM EDT documented in this encounter Patient Instructions * Attachments The following attachments cannot be sent through Care Everywhere. * Trigger Finger (Urdu) documented in this encounter Ordered Prescriptions Prescription Sig Dispense Quantity Refills Last Filled Start Date End Date lisinopriL (PRINIVIL,ZESTRIL) 20 mg tabletIndications:E ssential hypertension Take 1 tablet (20 mg total) by mouth 1 (one) time each day. 90 tablet 1 08/25/2024 documented in this encounter Progress Notes * Maynor Cheatham, ELI - 08/25/2024 9:30 AM EDTAssociated Problem(s): Essential hypertension Patient is to Continue lisinopril 20 mg [...] by mouth 1 (one) time each day. * Maynor Cheatham NP - 08/25/2024 9:30 AM EDT Images from the original note were not included. Patient Education High Blood Pressure: Care Instructions Overview It's normal for blood pressure to go up and down throughout the day. But if it stays up, you have high blood pressure. Another name for high blood pressure is hypertension. For diagnosis, the top number may be 130 to 140 or higher. The bottom number may be 80 to 90 or higher. Despite what a lot of people think, high blood pressure usually doesn't cause headaches or make youfeel dizzy or lightheaded. It usually has no symptoms. But it does increase your risk of stroke, heart attack, and other problems. You and your doctor will talk about your risks of these problems based on your blood pressure. Your doctor will give you a goal for your blood pressure. Your goal will be based on your health and your age. Lifestyle changes, such as eating healthy and being active, are always important to help lower blood pressure. You might also take medicine to reach your blood pressure goal. Follow-up care is a sherman part of your treatment and safety. Be sure to make and go to all appointments, and call your doctor if you are having problems. It's also a good idea to know your test resultsand keep a list of the medicines you take. How can you care for yourself at home? Medical treatment If you stop taking your medicine, your blood pressure will go back up. You may take one or more types of medicine to lower your blood pressure. Be safe with medicines. Take your medicine exactly as prescribed. Call your doctor if you think you are having a problem with your medicine. Talk to your doctor before you start taking aspirin every day. Aspirin can help certain people lower their risk of a heart attack or stroke. But taking aspirin isn't right for everyone, because it can cause serious bleeding. See your doctor regularly. You may need to see the doctor more often at first or until your blood pressure comes down. If you are taking blood pressure medicine, talk to your doctor before you take decongestants or anti-inflammatory medicine, such as ibuprofen. Some of these medicines can raise blood pressure. Learn how to check your blood pressure at home. Lifestyle changes Stay at a healthy weight. This is especially important if you put on weight around the waist. Losing even 10 pounds can help you lower your blood pressure. If your doctor recommends it, get more exercise. Walking is a good choice. Bit by bit, increase theamount you walk every day. Try for at least 30 minutes on most days of the week. You also may want to swim, bike, or do other activities. Avoid or limit alcohol. Talk to your doctor about whether you can drink any alcohol. Try to limit how much sodium you eat to less than 2,300 milligrams (mg) a day. Your doctor may ask you to try to eat less than 1,500 mg a day. Eat plenty of fruits (such as bananas and oranges), vegetables, legumes, whole grains, and low-fat dairy products. Lower the amount of saturated fat in your diet. Saturated fat is found in animal products such as milk, cheese, and meat. Limiting these foods may help you lose weight and also lower your risk for heart disease. Do not smoke. Smoking increases your risk for heart attack and stroke. If you need help quitting, talk to your doctor about stop-smoking programs and medicines. These can increase your chances of quitting for good. When should you call for help? Call 911 anytime you think you may need emergency care. This may mean having symptoms that suggest that your blood pressure is causing a serious heart or blood vessel problem. Your blood pressure maybe over 180/120. For example, call 911 if: You have symptoms of a heart attack. These may include: Chest pain or pressure, or a strange feeling in the chest. Sweating. Shortness of breath. Nausea or vomiting. Pain, pressure, or a strange feeling in the back, neck, jaw, or upper belly or in one or both shoulders or arms. Lightheadedness or sudden weakness. A fast or irregular heartbeat. You have symptoms of a stroke. These may include: Sudden numbness, tingling, weakness, or loss of movement in your face, arm, or leg, especially on only one side of your body. Sudden vision changes. Sudden trouble speaking. Sudden confusion or trouble understanding simple statements. Sudden problems with walking or balance. A sudden, severe headache that is different from past headaches. You have severe back or belly pain. Do not wait until your blood pressure comes down on its own. Get help right away. Call your doctor now or seek immediate care if: Your blood pressure is much higher than normal (such as 180/120 or higher), but you don't have symptoms. You think high blood pressure is causing symptoms, such as: Severe headache. Blurry vision. Watch closely for changes in your health, and be sure to contact your doctor if: Your blood pressure measures higher than your doctor recommends at least 2 times. That means the top number is higher or the bottom number is higher, or both. You think you may be having side effects from your blood pressure medicine. Where can you learn more? Scan the QR code or Go to https://www.SnapShop.net/luciochart Enter X567 in the search box to learn more about High Blood Pressure: Care Instructions. Current as of: April 10, 2023 Content Version: 14.2 ?? 2023 [employer]. Care instructions adapted under license by your healthcare professional. If you have questions about a medical condition or this instruction, always ask your healthcare professional. [employer] disclaims any warranty or liability for your use of this information. Patient Education DASH Diet: Care Instructions Your Care Instructions The DASH diet is an eating plan that can help lower your blood pressure. DASH stands for Dietary Approaches to Stop Hypertension. Hypertension is high blood pressure. The DASH diet focuses on eating foods that are high in calcium, potassium, and magnesium. These nutrients can lower blood pressure. The foods that are highest in these nutrients are fruits, vegetables, low-fat dairy products, nuts, seeds, and legumes. But taking calcium, potassium, and magnesium supplements instead of eating foods that are high in those nutrients does not have the same effect. The DASH diet also includes whole grains, fish, and poultry. The DASH diet is one of several lifestyle changes your doctor may recommend to lower your high blood pressure. Your doctor may also want you to decrease the amount of sodium in your diet. Lowering sodium while following the DASH diet can lower blood pressure even further than just the DASH diet alone. Follow-up care is a sherman part of your treatment and safety. Be sure to make and go to all appointments, and call your doctor if you are having problems. It's also a good idea to know your test resultsand keep a list of the medicines you take. How can you care for yourself at home? Following the DASH diet Eat 4 to 5 servings of fruit each day. A serving is 1 medium-sized piece of fruit, 1/2 cup raw or canned fruit, 1/4 cup dried fruit, or 4 ounces (1/2 cup) of fruit juice. Choose fruit more often thanfruit juice. Eat 4 to 5 servings of vegetables each day. A serving is 1 cup of lettuce or raw leafy vegetables, 1/2 cup of chopped or cooked vegetables, or 4 ounces (1/2 cup) of vegetable juice. Choose vegetablesmore often than vegetable juice. Get 2 to 3 servings of low-fat and fat-free dairy each day. A serving is 8 ounces of milk, 1 cup ofyogurt, or 1?? ounces of cheese. Eat 6 to 8 servings of grains each day. A serving is 1 slice of bread, 1 ounce of dry cereal, or 1/2 cup of cooked rice, pasta, or cooked cereal. Try to choose whole-grain products as much as possible. Limit lean meat, poultry, and fish to 6 ounces or less each day. One egg counts as 1 ounce. Eat 4 to 5 servings of nuts, seeds, and legumes (cooked dried beans, lentils, and split peas) each week. A serving is 1/3 cup of nuts, 2 tablespoons of seeds, 2 tablespoons of peanut butter, or 1/2 cup of cooked beans or peas. Limit fats and oils to 2 to 3 servings each day. A serving is 1 teaspoon of vegetable oil or 2 tablespoons of salad dressing. Limit sweets and added sugars to 5 servings or less a week. A serving is 1 tablespoon jelly or jam,1/2 cup sorbet, or 1 cup of lemonade. Eat less than 2,300 milligrams (mg) of sodium a day. If you limit your sodium to 1,500 mg a day, you can lower your blood pressure even more. Be aware that all of these are the suggested number of servings for people who eat 1,800 to 2,000 calories a day. Your recommended number of servings may be different if you need more or fewer calories. Tips for success Start small. Make small changes, and stick with them. Once those changes become habit, add a few more changes. Try some of the following: Make it a goal to eat a fruit or vegetable at every meal and at snacks. This will make it easy to get the recommended amount of fruits and vegetables each day. Try yogurt topped with fruit and nuts for a snack or healthy dessert. Add lettuce, tomato, cucumber, and onion to sandwiches. Have a variety of cut-up vegetables with a low-fat dip as an appetizer instead of chips and dip. Sprinkle sunflower seeds or chopped almonds over salads. Or try adding chopped walnuts or almonds to cooked vegetables. Try some vegetarian meals using beans and peas. Add garbanzo or kidney beans to salads. Make burritos and tacos with mashed hannon beans or black beans. Where can you learn more? Scan the QR code or Go to https://www.SnapShop.net/abhijeet Enter H967 in the search box to learn more about DASH Diet: Care Instructions. Current as of: March 07, 2023 Content Version: 14.2 ?? 2023 [employer]. Care instructions adapted under license by your healthcare professional. If you have questions about a medical condition or this instruction, always ask your healthcare professional. [employer] disclaims any warranty or liability for your use of this information. * Maynor Cheatham NP - 08/25/2024 9:30 AM EDT PATIENT'S PCP: Oyinkansola Oyenike Ogundipe, MD LAST VISIT IN THIS DEPARTMENT: Visit date not found Vanessa Guerra is a 49 y.o. (: 1975) female who presents today for: Chief Complaint Patient presents with Hand Pain 4th finger on the right hand is painful and it gets stuck cramps up hard to move SUBJECTIVE HPI Vanessa 49-year-old female who present for right middle finger pain. She denies trauma to the hand.Patient described pain with extension of the finger. Patient report contraction of the finger and sometimes she has to pull the finger to extend it. This started 2 weeks ago and has been progressively getting worse. She denies swelling of the joint or redness. Patient blood pressure was also elevated in the office today. After patient sat for a while blood pressure was reassessed and was within normal range. She is on lisinopril 20 mg daily. Patient reportthat she takes her medication as prescribed without side effects. Today she reported no chest pain on exertion, no dyspnea on exertion, no swelling of ankles, no palpitation, sweating, dizziness, abdominal pain or tearing back pain. She also denied TIAs, headache, vision changes, or sensory and motor deficit. ROS Review of Systems Constitutional: Negative. Respiratory: Negative. Cardiovascular: Negative. Gastrointestinal: Negative. Endocrine: Negative. Genitourinary: Negative. Musculoskeletal: Right Middle pain pain with contraction Skin: Negative. Neurological: Negative. Hematological: Negative. The following portions of the patient's chart were reviewed in this encounter and updated as appropriate: OBJECTIVE Vitals: 08/25/24 0921 08/25/24 0933 BP: (!) 145/96 132/86 BP Location: Left arm Patient Position: Sitting Pulse: 96 Resp: 18 Temp: 36.1 ??C (96.9 ??F) TempSrc: Temporal SpO2: 98% Weight: 115 kg (252 lb 9.6 oz) Height: 1.676 m (66 ) Body mass index is 40.77 kg/m??. Plan is deferred until next visit Allergies Allergen Reactions Penicillins Other Reaction(s): Rash/Dermatitis Tramadol Nausea And Vomiting Active Medication: Current Outpatient Medications Medication Instructions blood sugar diagnostic (FreeStyle Lite Strips) test strip 2 times daily buPROPion XL (WELLBUTRIN XL) 300 mg 24 hr tablet 1 tablet, Daily busPIRone (BUSPAR) 10 mg, 2 times daily cholecalciferol (VITAMIN D-3) 50 mcg (2,000 unit) capsule 1 capsule, Daily FREESTYLE LANCETS MISC USE TO CHECK BLOOD GLUCOSE DAILY DIRECTED hydrOXYzine HCL (ATARAX) 10 mg tablet TAKE ONE (1) TABLET BY MOUTH THREE TIMES A DAY, NEEDED FORANXIETY/PANIC insulin glargine (Lantus Solostar U-100 Insulin) 100 unit/mL (3 mL) injection pen INJECT INTO SKIN ONCE AT BEDTIME 34 UNITS insulin lispro (HumaLOG KwikPen) 100 unit/mL injection pen Inject 4-20 Units into the skin 3 times daily. <70: 0 units, 71-100: 4 units, 101-150: 8 units, 151-200: 10 units, 201-250: 12 units, 251-300: 14 units, 301-350: 16units, 351- 400: 18 units, >400: call me. Plus 2 units before lunch anddinner. lansoprazole (PREVACID) 30 mg, oral, Daily lisinopriL (PRINIVIL,ZESTRIL) 20 mg, oral, Daily magnesium oxide 250 mg magnesium tablet 1 tablet, Daily ondansetron ODT (ZOFRAN-ODT) 4 mg disintegrating tablet [...] 1.5 tablets simvastatin (ZOCOR) 10 mg tablet 1 tablet, Nightly Trulicity 4.5 mg, subcutaneous, Weekly Physical Exam Vitals reviewed. Constitutional: Appearance: Normal appearance. Cardiovascular: Rate and Rhythm: Normal rate and regular rhythm. Pulses: Normal pulses. Heart sounds: Normal heart sounds. Pulmonary: Effort: Pulmonary effort is normal. Breath sounds: Normal breath sounds. Abdominal: General: Bowel sounds are normal. Palpations: Abdomen is soft. Musculoskeletal: General: Normal range of motion. Cervical back: Normal range of motion and neck supple. Skin: General: Skin is warm and dry. Neurological: General: No focal deficit present. Mental Status: She is alert. Mental status is at baseline. Imaging No Pertinent Imaging Laboratory: CBC: No results found for: WBC , HGB , HCT , MCV , PLT CMP: Lab Results Component Value Date NA 138 06/05/2024 K 4.3 06/05/2024 CL 103 06/05/2024 CO2 30 06/05/2024 GLUCOSE 101 (H) 06/05/2024 BUN 13 06/05/2024 CREATININE 1.03 06/05/2024 CALCIUM 9.6 06/05/2024 PROT 7.5 06/05/2024 ALBUMIN 3.7 06/05/2024 BILITOT 0.2 06/05/2024 AST 14 06/05/2024 ALT 22 06/05/2024 ALKPHOS 111 06/05/2024 EGFR 66 06/05/2024 Assessment & Plan Trigger middle finger of right hand Patient present with pain to the right hand middle finger. Differential diagnosis consider is arthritis or trigger finger. Patient can take OTC Tylenol. Due to hypertension, she is to use NSAIDs sparingly. Will order x-ray of the hand to reevaluate for any acute process Patient was referred to hand surgery for further evaluation and/or possible steroid injections. Orders: Ambulatory referral to Hand Surgery; Future XR Hand 3+ Views Right; Future Essential hypertension Patient is to Continue lisinopril 20 mg [...] by mouth 1 (one) time each day. FOLLOW-UP: Follow up if symptoms worsen or fail to improve, for Please book with care team. Maynor Cheatham NP [address] [phone] Today's documentation was made using voice recognition software.This note may contain grammatical errors secondary to this software. documented in this encounter Plan of Treatment Upcoming Encounters Date Type Department Care Team (Late st Contact Info) Description 09/10/2024 10:00 AM EDT Office Visit Adult Medicine [facility] [address] [place] [phone] Swetha Grant PA [address] [place] [address] 09/16/2024 3:20 PM EDT Office Visit Gastroenterology [facility] [address] [facility] [address] [facility] [address] [place] [phone] Enriqueta Flores PA [facility] [address] [place] [address] 09/17/2024 2:30 PM EDT Office Visit Orthopedic Surgery [facility] [address] [facility] [address] [place] [phone] Handy Johnson MD [facility] [address] [place] [address] 09/29/2024 2:00 PM EDT [place] [facility] [place] [address] [place] [phone] Soraida Ramirez PA [address] [place] [address] Scheduled Referrals Name Type Priority Associated Diagnoses Order Schedule Ambulatory referral to Hand Surgery Outpatient Referral Routine Trigger middle finger of right hand 1 Occurrences starting 08/25/2024 until 08/25/2025 documented as of this encounter Results * XR Hand 3+ Views Right [...] Signed Date: 08/25/2024 10:52 ET Workstation ID: [id number] Transcribed By: Self Edit Transcribed Date: 08/25/2024 [...] Signed Date: 08/25/2024 10:52 ET Workstation ID: [id number] Transcribed By: Self Edit Transcribed Date: 08/25/2024 10:51 ET us Maynor Cheatham [employer] 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 09/17/2023 08/25/2024 tiZANidine (ZANAFLEX) 4 mg tablet Take 1 tablet (4 mg total) by mouth 3 (three) times a day if needed. 09/05/2023 08/25/2024 butalbitaL-acetaminophen 50-325 mg tablet Take 1 tablet by mouth every 4 (four) hours. 08/25/2024 lisinopriL (PRINIVIL,ZESTRIL) 20 mg tablet Take 1 tablet (20 mg total) by mouth 1 (one) time each day. Reorder 09/17/2023 08/25/2024 documented as of this encounter Care Teams Access Spec Relationship Specialty Start Date End Date Tapan Mendoza MD [address] [place] [phone] PCP - General 08/16/22 documented as of this encounter
[2024-09-07] MEDS: Ketorolac Tromethamine 15 MG/ML VIAL IM (07:44)
--- NOTE | 2024-09-07 07:46 | PC.NURSE ---
pt medicated for 12/25 pain
[2024-09-07 07:58] LABS: Alanine Aminotransferase 19 U/L (0-31); Albumin Level 3.7 g/dL (3.5-5.0); Anion Gap 11 (12-20); Aspartate Amino Transferase 20 U/L (5-31); Bilirubin Total 0.3 mg/dL (0.0-1.0); Blood Urea Nitrogen 16 mg/dL (9-16); Calcium 8.8 mg/dL (8.4-10.2); Carbon Dioxide 28 mmol/L (22-29); Chloride 104 mmol/L (96-108); Creatinine Clr Calc Pharmacy 104.3; Estimated Glomerular Filt Rate > 60; Glucose Random 231 mg/dL (60-115); Lipase 20 U/L (8-78); Magnesium 1.8 mg/dL (1.6-2.6); Potassium 4.1 mmol/L (3.3-5.1); Sodium 139 mmol/L (135-145); Total Protein 7.1 g/dL (6.5-8.0); Troponin-I High Sensitivity < 2.7 ng/L (<3.5-17.0)
[2024-09-07 08:19] LABS: Alkaline Phosphatase 112 U/L (39-117)
[2024-09-07 08:50] VITALS: BP 135/85; PULSE 92; RESP 11; TEMP 36.6; O2SAT 98
[2024-09-07 09:26] LABS: Troponin-I High Sensitivity < 2.7 ng/L (<3.5-17.0)
[2024-09-07 09:38] LABS: Influenza A PCR NEGATIVE (Negative); Influenza B PCR NEGATIVE (Negative); Resp Syncy Virus RNA Qual PCR NEGATIVE (Negative); SARS COV2 PCR INHOUSE NEGATIVE (Negative)
[2024-09-07 10:01] VITALS: BP 135/85; PULSE 92; RESP 11; TEMP 36.6; O2SAT 98
== END 2024-09-07 10:01 | disposition home or self-care (01) ==
PROVIDERS: Physician Assistant Medical; Emergency Provider Emergency Medicine; PCP Family Medicine
DX: R07.89 Other chest pain (principal); R06.02 Shortness of breath; I10 Essential (primary) hypertension; E11.9 Type 2 diabetes mellitus without complications; Z03.818 Encounter for observation for suspected exposure to other biological agents ruled out
CPT/HCPCS: 0241U; 36415; 71046; 80053; 83690; 83735; 84484; 85027; 85610; 93005; 96372; 99284; 99285; J1885

== ENCOUNTER → 2024-09-07 06:44 | Outpatient (BNV) | payer OTHER, SELFPAY | PROVIDERS: Emergency Provider Emergency Medicine; PCP Family Medicine; Visit Provider Internal Medicine Cardiovascular Disease | DX: R07.9 Chest pain, unspecified (principal) | CPT/HCPCS: 93010 ==

== ENCOUNTER → 2024-09-07 07:09 | Outpatient (BNV) | payer OTHER, SELFPAY | PROVIDERS: PCP Family Medicine; Visit Provider Specialist | DX: R07.9 Chest pain, unspecified (principal) | CPT/HCPCS: 71046 ==

== ENCOUNTER 2024-10-22 13:10 | Emergency (ER) | payer OTHER, SELFPAY ==
--- NOTE | ~2024-10-22 | CT_ITS ---
EXAMINATION: CT HEAD WITHOUT CONTRAST CLINICAL INFORMATION: Headache COMPARISON: February 27, 2024. TECHNIQUE: Contiguous axial imaging was performed from the skull base to vertex without intravenous administration of contrast. This CT examination was performed using dose optimization techniques as appropriate, variously including the following: *Automated exposure control *Adjustment of mA and/or kV according to patient size (this includes techniques or standardized protocols for targeted exams where dose is matched to indication/reason for exam; i.e. extremities or head) *Use of iterative reconstruction technique DLP: 662 mGy-cm FINDINGS: No acute intracranial hemorrhage, mass effect, midline shift, hydrocephalus or herniation. Cleaning-white matter differentiation is normal. Posterior cranial fossa contents acute intracranial hemorrhage or mass effect. Normal position of the cerebellar tonsils. Sellar/suprasellar region demonstrated no gross masses. Craniocervical junction is intact. Bony calvarium is intact. No air-fluid levels in the paranasal sinuses. For pneumatization frontal sinuses. Tympanic cavities and mastoid cells are aerated. CT/CT head/brain wo IV con IMPRESSION: No acute brain abnormality by CT Electronically signed by: Xander Heart MD 10/22/2024 03:34 PM EDT
--- NOTE | ~2024-10-22 | XR_ITS ---
EXAMINATION: XR CHEST CLINICAL INFORMATION: chest pain COMPARISON: September 07, 2024. TECHNIQUE: 2 views of the chest were obtained. FINDINGS: No consolidation, pleural effusion or pneumothorax. No hyperinflation. Cardiomediastinal silhouette size is normal with a round cardiac apex. Osseous structures are intact. Metallic plate in the lower cervical spine. Vascular clips right upper quadrant abdomen. Patient's large body habitus/obesity. XR/XR chest 2V IMPRESSION: No acute airspace disease. Electronically signed by: Xander Heart MD 10/22/2024 02:24 PM EDT
[2024-10-22 13:14] VITALS: BP 151/85; PULSE 107; RESP 18; TEMP 36.7; O2SAT 100; BMI 41.0
--- NOTE | 2024-10-22 13:14 | ED.GENADULT ---
HPI - General Adult General Chief complaint: Chest Pain Stated complaint: Chest Pain High Blood Pressure MCKENZIE Etc Time Seen by Provider: 10/22/24 14:26 Source: patient Mode of arrival: ambulatory Limitations: no limitations History of Present Illness ED Provider: DR. Whyte HPI narrative: 49 yo female with PMHx of T2DM, HLD, presenting to the ED c/o mid sternal chest pain starting 7am this morning, and 2 days of pounding headache. She states she gets frequent headaches and this headache feels similar to previous headaches. She states she has been feeling nauseous today without vomiting, light headed and sweaty . She states the chest pain is intermittent, non radiating, is mid-sternal and is associated with palpitations. She states she took tylenol this morning without effect. Denies fever, vomiting. No recent travel, no lower extremity swelling or tenderness, no prolonged immobilization. Related Data Previous Rx's ?Medication ?Instructions ?Recorded ketorolac 10 mg tablet 10 mg PO Q6H PRN pain 5 days #20 11/12/22 tabs uhtlvjxitl-zedfhaduyfxpx-jixdpuiq 1 tab PO Q6H PRN haeadace #20 tabs 07/27/23 50 mg-325 mg-40 mg tablet cyclobenzaprine 5 mg tablet 5 mg PO Q8H PRN muscle spasm #7 10/27/23 tabs lidocaine 5 % topical patch 1 patch topical DAILY #15 ea 10/27/23 (Lidoderm) naproxen 500 mg tablet 500 mg PO Q8-12H PRN pain (scale 10/27/23 score 4-6) #20 tabs amlodipine 2.5 mg tablet 2.5 mg PO DAILY #14 tabs 10/22/24 Allergies Allergy/AdvReac Type Severity Reaction Status Date / Time Penicillins [PENICILLINS] Allergy Intermediate RASH Verified 10/22/24 13:18 penicillin V Allergy Unknown Rash Verified 10/22/24 13:18 Review of Systems Review of Systems: All other systems are reviewed and are negative Constitutional: Reports as per HPI and Reports no additional constitutional complaints Eyes: Reports as per HPI and Reports no additional eye complaints Reports system reviewed and no additional complaints, except as documented Cardiovascular: Reports as per HPI and Reports no additional cardiovascular complaints Respiratory: Reports as per HPI and Reports no additional respiratory complaints Gastrointestinal: Reports as per HPI and Reports no additional gastrointestinal complaints Genitourinary: Reports no additional female genitourinary complaints Musculoskeletal: Reports no additional musculoskeletal complaints Skin/Breast: Reports system reviewed and no additional complaints, except as docu Psychiatric: Reports no additional psychiatric complaints Endocrine: Reports no additional endocrine complaints Hematologic/Lymphatic: Reports no additional hematologic/lymphatic complaints Allergic/Immunologic: Reports no additional allergic/immunologic complaints Reports system reviewed and no additional complaints, except as documented and Reports Abnormal speech present [facility] Social History Social History Alcohol intake: current Alcohol intake frequency: holidays/special occasions only Alcohol type: wine Advance Directives: No Advance Directives Information Provided: Yes Physical Exam ED Vital Signs: Vital Signs - 24 hr 10/22/24 13:14 10/22/24 14:46 Temperature 98.1 F 97.9 F Pulse Rate 107 H 92 Respiratory Rate 18 14 Blood Pressure 151/85 H 138/84 Pulse Oximetry 100 100 Oxygen Delivery Method Room Air Room Air BMI result Body Mass Index 41.0 Vital signs have been reviewed and appear to be correct. Blood pressure elevated. Heart rate normal. Respiratory rate normal. Temperature normal. Oxygen saturation normal. Appearance: Alert. Oriented X3. No acute distress. Head: Normal external exam. Normocephalic. Atraumatic. No Iverson signs noted. No raccoon eyes noted Eyes: PERRLA. EOMI. Conjunctiva and sclera normal. Eyelids normal. ENT: TM's Normal. Pharynx normal. Uvula midline. Moist mucous membranes. No trismus noted. No drooling noted. No muffled voice noted. Neck: Normal inspection. Neck supple. FROM. No adenopathy. Thyroid Normal. No meningeal signs. No neck mass noted. CVS: Normal heart rate and rhythm. Heart sound normal. No murmurs noted. Pulses normal throughout. Respiratory: No respiratory distress. Painless inspiration. Breath sounds normal. No wheezes/rales/rhonchi noted. Chest nontender. No accessory muscle usage noted or decreased air movement noted. Abdomen: Soft and nontender. Bowel sounds normal in all 4 quadrants. No distention noted. No organomegaly noted. No visible injury noted. Back: No CVA tenderness. Full range of motion noted. Skin: Skin warm and dry. Normal skin color. Normal skin turgor. No rashes/lesions/lacerations noted. Extremities: No lower extremity edema. Extremities exhibit normal range of motion. Extremities nontender. Neuro: Oriented X 3. Cranial nerve exam: II-XII are grossly intact No motor deficit. No sensory deficit. Reflexes normal. Course Course Course Narrative: This is a Rapid Medical Exam performed in triage by Deidre Chang PA-C. Full HPI, ROS and PE to be performed by primary ED provider. Came in for elevated high blood pressure and headache. PE: lungs CTA, no focal neuro deficits, no pedal edema. Plan: EKG trop, labs, CXR, viral testing Reevaluation(s) Reevaluation #1: feels better, headache is much better, with improvement of blood pressure 138/84, repeat neuro exam is unremarkable, head CT showing no acute pathology. Will add amlodipine 2.5 mg daily for better BP management and follow-up with PCP. Time: 16:09 Medications Administered Discontinued Medications Generic Name Dose Route Start Last Admin Trade Name Freq PRN Reason Stop Dose Admin Acetaminophen 975 mg 10/22/24 14:51 10/22/24 15:04 Acetaminophen 325 Mg Tablet PO 10/22/24 14:52 975 mg ONCE ONE Administration Amlodipine Besylate 2.5 mg 10/22/24 14:35 10/22/24 14:47 Amlodipine Besylate 2.5 Mg Tablet PO 10/22/24 14:36 2.5 mg ONCE ONE Administration Protocol Medical Decision Making Differential Diagnosis Differential Diagnoses: The differential diagnosis associated with the presentation includes ( Hypertensive urgency, hypertensive emergency, intracranial bleed, tension headache, electrolyte derangement, severe anemia, .) Admission/Observation Consideration of admission/observation: Escalation of care including admission/observation considered Lab Data MDM Lab Attestation statement: I reviewed the patient's lab results. 10/22/24 13:52 10/22/24 13:52 Labs: Lab Results 10/22/24 Range/Units 13:52 WBC 6.5 (4.8-10.8) X10*3/uL RBC 4.89 (4.20-5.50) X10*6/uL Hgb 12.7 (12.0-16.0) g/dl Hct 39.2 (37.0-47.0) % MCV 80.2 (80.0-98.0) fL MCH 26.0 L (27.0-33.0) pg MCHC 32.4 (31.0-35.0) g/dl RDW 15.2 (11.0-16.0) % Plt Count 225 (160-400) X10*3/uL MPV 9.6 (9.4-12.3) fL Immature Gran % (Auto) 0.5 H (0.0-0.4) % Neut % (Auto) 64.1 (45-73) % Lymph % (Auto) 28.7 (20-40) % [place] % (Auto) 4.0 (2-11) % Eos % (Auto) 2.5 (0-4) % Baso % (Auto) 0.2 (0-2) % Lymph # (Auto) 1.9 (1.2-4.9) X10*3/uL [place] # (Auto) 0.3 (0.1-1.2) X10*3/uL Eos # (Auto) 0.2 (0.0-0.4) X10*3/uL Baso # (Auto) 0.0 (0.0-0.2) X10*3/uL Abs Immat Gran (auto) 0.03 (0.00-0.03) X10*3/uL Absolute Neuts (auto) 4.1 (2.0-8.3) x10*3/uL Absolute Nucleated RBC 0.000 (0.0-0.012) X10*3/uL Nucleated RBC % (auto) 0.0 (0.0-0.2) /100WBC Sodium 138 (135-145) mmol/L Potassium 4.1 (3.3-5.1) mmol/L Chloride 102 (96-108) mmol/L Carbon Dioxide 26 (22-29) mmol/L Anion Gap 14 (12-20) BUN 15 (9-16) mg/dL Creatinine 0.75 (0.5-1.4) mg/dL Estim Creat Clear Calc 114.3 Estimated GFR > 60 Random Glucose 154 H (60-115) mg/dL Calcium 9.3 (8.4-10.2) mg/dL Magnesium 1.8 (1.6-2.6) mg/dL Total Bilirubin 0.4 (0.0-1.0) mg/dL Direct Bilirubin 0.1 (0.0-0.5) mg/dL AST 19 (5-31) U/L ALT 19 (0-31) U/L Alkaline Phosphatase 96 (39-117) U/L Troponin I High Sens < 2.7 (<3.5-17.0) ng/L Total Protein 7.1 (6.5-8.0) g/dL Albumin 3.9 (3.5-5.0) g/dL TSH 1.20 (0.32-4.0) uIU/mL Influenza Type A (PCR) NEGATIVE (Negative) Influenza Type B (PCR) NEGATIVE (Negative) RSV RNA Qual (PCR) NEGATIVE (Negative) SARS-CoV-2 RNA (RT-PCR) NEGATIVE (Negative) Independent Interpretation I performed an independent interpretation of an: Plain X-Ray ( Chest: No acute airspace disease.) and CT Scan ( Head: No acute intracranial pathology.) Radiology Impression Discussion of test interpretation with radiology: I have reviewed the radiologist's reading. Chronic Conditions Patient?s care impacted by: Hypertension Discharge Plan Discharge Clinical Impression: Chest pain, Hypertension Patient Disposition: Home, Self-Care Instructions: Chest Pain (ED), Hypertension (ED) Prescriptions: New amlodipine 2.5 mg tablet 2.5 mg PO DAILY Qty: 14 0RF No Action ketorolac 10 mg tablet 10 mg PO Q6H PRN (Reason: pain) 5 Days Qty: 20 0RF Rx Instructions: Patient received Toradol in the emergency room. lidocaine [Lidoderm] 5 % adhesive patch,medicated 1 patch topical DAILY Qty: 15 0RF Rx Instructions: leave on most painful area for up to 12 hrs naproxen 500 mg tablet 500 mg PO Q8-12H PRN (Reason: pain (scale score 4-6)) Qty: 20 0RF cyclobenzaprine 5 mg tablet 5 mg PO Q8H PRN (Reason: muscle spasm) Qty: 7 0RF bduopvmulo-coxfoorshnqze-ocbx 50-325-40 mg tablet 1 tab PO Q6H PRN (Reason: haeadace) Qty: 20 0RF Referrals: Tapan Mendoza MD [Primary Care Provider] - Print Language: Singaporean
--- NOTE | 2024-10-22 13:17 | ECG_ITS ---
Test Reason : chest pain Blood Pressure : */* mmHG Vent. Rate : 97 BPM Atrial Rate : 97 BPM P-R Int : 132 ms QRS Dur : 84 ms QT Int : 348 ms P-R-T Axes : 42 2 7 degrees QTcB Int : 441 ms Normal sinus rhythm Possible Anterior infarct , age undetermined Abnormal ECG When compared with ECG of 07-Sep-2024 06:44, No significant change was found Referred By: Deidre Chang Electronically Signed By: KERMIT FAROOQ
[2024-10-22 13:57] LABS: MANUAL DIFF FLAG NO
[2024-10-22 14:06] LABS: Basophils Percent Auto 0.2 % (0-2); Eosinophils Absolute Auto 0.2 X10*3/uL (0.0-0.4); Eosinophils Percent Auto 2.5 % (0-4); Hematocrit 39.2 % (37.0-47.0); Hemoglobin 12.7 g/dl (12.0-16.0); Imm Gran Abs Auto 0.03 X10*3/uL (0.00-0.03); Imm Gran Pct Auto 0.5 % (0.0-0.4); Lymphocytes Absolute Auto 1.9 X10*3/uL (1.2-4.9); Lymphocytes Percent Auto 28.7 % (20-40); Mean Corpuscular HGB Conc 32.4 g/dl (31.0-35.0); Mean Corpuscular Volume 80.2 fL (80.0-98.0); Mean Platelet Volume 9.6 fL (9.4-12.3); Monocytes Absolute Auto 0.3 X10*3/uL (0.1-1.2); Neutrophils Absolute Auto 4.1 x10*3/uL (2.0-8.3); Neutrophils Percent Auto 64.1 % (45-73); Platelet Count 225 X10*3/uL (160-400); Red Blood Count 4.89 X10*6/uL (4.20-5.50); Red Cell Distribution Width 15.2 % (11.0-16.0); White Blood Count 6.5 X10*3/uL (4.8-10.8)
[2024-10-22 14:20] LABS: Alanine Aminotransferase 19 U/L (0-31); Albumin Level 3.9 g/dL (3.5-5.0); Alkaline Phosphatase 96 U/L (39-117); Anion Gap 14 (12-20); Aspartate Amino Transferase 19 U/L (5-31); Bilirubin Direct 0.1 mg/dL (0.0-0.5); Bilirubin Total 0.4 mg/dL (0.0-1.0); Blood Urea Nitrogen 15 mg/dL (9-16); Calcium 9.3 mg/dL (8.4-10.2); Carbon Dioxide 26 mmol/L (22-29); Chloride 102 mmol/L (96-108); Creatinine Clr Calc Pharmacy 114.3; Estimated Glomerular Filt Rate > 60; Glucose Random 154 mg/dL (60-115); Magnesium 1.8 mg/dL (1.6-2.6); Potassium 4.1 mmol/L (3.3-5.1); Sodium 138 mmol/L (135-145); Total Protein 7.1 g/dL (6.5-8.0)
[2024-10-22 14:21] LABS: Troponin-I High Sensitivity < 2.7 ng/L (<3.5-17.0)
[2024-10-22 14:34] LABS: Influenza A PCR NEGATIVE (Negative); Influenza B PCR NEGATIVE (Negative); Resp Syncy Virus RNA Qual PCR NEGATIVE (Negative); SARS COV2 PCR INHOUSE NEGATIVE (Negative)
[2024-10-22 14:46] VITALS: BP 138/84; PULSE 92; RESP 14; TEMP 36.6; O2SAT 100
[2024-10-22] MEDS: amLODIPine Besylate 2.5 MG TABLET PO (14:47)
[2024-10-22] MEDS: Acetaminophen 325 MG TABLET 975 MG PO (15:04)
--- NOTE | 2024-10-22 15:06 | PC.NURSE ---
ambulates independently to ct scan for head ct. medicated per the AUG. call rios within reach
--- OUTSIDE RECORDS SUMMARY | 2024-10-22 15:39 | XMS_ITS | Clinical Summary ---
Author Organization Patient Business Ser [facility] [place] Address [address] [place] [address] Care Team Providers Care Web Production Assistant Name Role Phone Tapan Mendoza MD Primary [...] UP TO 30 DAYS. 01/29/20 24 Active cholecalciferol (VITAMIN D-3) 50 mcg [...] mouth 2 (two) times a day. 02/17/20 Active FREESTYLE LANCETS MISC USE TO CHECK BLOOD GLUCOSE DAILY DIRECTED 01/11/20 Active sertraline (ZOLOFT) 100 mg tablet Take 150 mg by mouth daily. 1.5 tablets 09/18/19 Active buPROPion XL (WELLBUTRIN XL) 300 mg 24 hr tablet Take 1 tablet (300 mg total) by mouth 1 (one) time each day. 07/13/19 21 Active lansoprazole (PREVACID) [address] capsule TAKE 1 CAPSULE BY MOUTH EVERY DAY 90 capsule 3 07/14/19 25 Active blood sugar diagnostic (FreeStyle Lite Strips) test stripIndications: Type 2 diabetes mellitus with hyperglycemia ([facility] V24, [facility] V28) USE TO CHECK BLOOD SUGARS TWICE DAILY 100 strip 2 07/18/19 25 Active lisinopriL (PRINIVIL,ZESTRIL ) 20 mg tabletIndications :Essential hypertension Take 1 tablet (20 mg total) by mouth 1 (one) time each day. 90 tablet 1 08/26/19 25 Active dulaglutide (Trulicity) 4.5 mg/0.5 mL pen injector injectionIndicati ons:Type II diabetes mellitus with neurological manifestations ([facility] V24, [facility] V28) Inject 0.5 mL (4.5 mg total) under [...] dinner. 45 mL 2 09/02/19 25 Active insulin glargine (Lantus Solostar U-100 Insulin) 100 unit/mL (3 mL) injection pen INJECT INTO SKIN ONCE AT BEDTIME 36-40 UNITS 10/07/19 25 Active simvastatin (ZOCOR) 10 mg tablet TAKE 1 TABLET BY MOUTH EVERYDAY AT BEDTIME 90 tablet 1 10/14/19 25 Active simvastatin (ZOCOR) 10 mg tablet Take 1 tablet (10 mg total) by mouth at bedtime. 09/27/19 24 2024 Discontinued insulin glargine (Lantus Solostar U-100 Insulin) 100 unit/mL (3 mL) injection pen INJECT INTO SKIN ONCE AT BEDTIME 34 UNITS 30 mL 2 06/05/20 24 2024 Discontinued(R eorder) Active Problems Problem Noted Date Diagnosed Date Diabetic retinopathy ([facility] V24, [facility] V28) 03/13/2024 Overview (04/07/2024): Mild nonproliferative diabetic retinopathy [...] both thumbs 08/24/2022 Type II diabetes mellitus wi th neurological manifestations ([facility] V24, [facility] V28) 03/25/2022 Bilateral carpal tunnel syndrome 09/02/2021 Overview [...] C6-7 anterior cervical discectomy and fusion in 2016. We will obtain some flexion and extension views of the cervical spine. Palpitations 08/13/2020 Overview (04/07/2024): Last Assessment & Plan: There was no arrhythmia associated with her heart racing symptoms with 30-day monitor. Probably there was anxiety component. PATRICK (generalized anxiety disorder) 08/01/2019 Cervical myelopathy with cer vical radiculopathy ([facility] V24, [facility]/HCC V28) 08/30/2017 Overview (04/07/2024): S/p cervical disc fusion [...] sideropenic dyspha ravi 08/02/2015 Severe obesity (BMI 35.0-39. 9) with comorbidity ([facility] V24, [facility] V28) 09/15/2014 Vitamin D deficiency 07/07/2013 Dyslipidemia 07/07/2013 Mild depressive disorder 06/07/2005 Encounters Date Type Department Care Team Description 10/06/2024 8:20 AM EDT Office Visit [address] [phone] Soraida Rmairez PA Type II diabetes mellitus with neurological manifestations ([facility] V24, [facility] V28) (Primary Dx); Essential hypertension; Class 3 severe obesity with serious comorbidity and body mass index (BMI) of 40.0 to 44.9 in adult, unspecified obesity type ([facility] V24, [facility] V28) 09/05/2024 Telephone Endocrinology [address] [phone] Soraida Ramirez PA Appointment 09/02/2024 2:30 PM EDT Consult Orthopedic Surgery - [address] [phone] Xin Cardenas PA Trigger ring finger of right hand 09/02/2024 Telephone Endocrinology [address] [phone] Charlotte Sarabia MA PA for trulicity 08/26/[address] [phone] Soraida Ramirez PA Medication Problem (lispro) 08/26/2024 Telephone Endocrinology [address] [phone] Soraida Ramirez PA PRIOR AUTHORIZATION 08/25/2024 9:41 AM EDT - 08/25/2024 11:59 PM EDT Hospital Encounter [facility] [address], [place] [phone] Trigger middle finger of right hand; Essential hypertension Discharge Disposition: Home or Self Care 08/25/2024 9:30 AM EDT Office Visit Adult Medicine [facility] [address], [place] [phone] Maynor Cheatham, BREAKER TENDER Trigger middle finger of right hand (Primary [...] 1993,1998, 2001 OTHER SURGICAL HISTORY 08/04/2015 PROCEDURE: [facility] HYSTEROSCOPY ENDOMETRIAL ABLATION OTHER SURGICAL HISTORY PROCEDURE: [facility] ANESTHESIA CERVICAL CERCLAGE INCLUDING BIOPSY OTHER SURGICAL HISTORY 12/28/2015 PROCEDURE: [facility] ARTHRD ANT INTERBODY MIN DSC CRV BELOW C2; COMMENT: C5-6, C6-7 ACDF; Dr. Obrien CARPAL TUNNEL RELEASE 01/03/2022 PROCEDURE: HISTORICAL CARPAL TUNNEL REL; COMMENT: Right carpal tunnel release, Dr. Obrien CARPAL TUNNEL RELEASE 04/24/2022 PROCEDURE: [facility] NEUROPLASTY &/TRANSPOS MEDIAN NRV CARPAL TUNNE; COMMENT: Redo right carpal tunnel release, Dr. Obrien CARPAL TUNNEL RELEASE 09/19/2021 PROCEDURE: [facility] NEUROPLASTY &/TRANSPOS MEDIAN NRV CARPAL TUNNE; COMMENT: Left carpal tunnel release, Dr. Obrien Medical History Medical History Date Comments DM2 (diabetes mellitus, type 2) ([facility] V24, [facility] V28) DX:DM2 (diabetes mellitus, t ype 2) ([facility]) Anxiety DX:Anxiety Vitamin D deficiency DX:Vitamin D [...] Sign Reading Time Taken Comments Blood Pressure 133/70 10/06/2024 8:24 AM EDT Pulse 83 10/06/2024 8:24 AM EDT Temperature 35.7 ??C (96.3 ??F) 10/06/2024 8:24 AM ED T Respiratory Rate 18 08/25/2024 9:21 AM EDT Oxygen Saturation 98% 10/06/2024 8:24 AM EDT Inhaled Oxygen Concentration - - Weight 116 kg (256 lb) 10/06/2024 8:24 AM EDT Height 167.6 cm (5' 6 ) 10/06/2024 8:24 AM EDT Body Mass Index 41.32 10/06/2024 8:24 AM EDT Plan of Treatment Health Maintenance Due Date Last Done Comments [...] Vaccine ( season) 2024 06/12/2021, 11/05/2020, 10/08/2020 Depression Screening 09/16/2024 09/17/2023 Influenza Vaccine (Season Ended) 2025 03/06/2018, 08/17/2006 Diabetes: Annual Foot Exam 03/05/2025 03/05/2024 Diabetes: Annual Retina Eye Exam 03/11/2025 03/11/2024 Diabetes: Blood Sugar Control Test (HGBA1C) 04/08/2025 10/07/2024, 06/05/2024, 04/15/2024, Additional history exists Diabetes: Annual GFR (Glomerular Filtration Rate) 06/05/2025 06/05/2024, 04/15/2024 Hypertension/CHF/CAD Annual BMP Blood Test 06/05/2025 06/05/2024, 04/15/2024 Diabetes: Annual Urine Albumin-Creatinine Ratio (uACR) 10/07/2025 10/07/2024, 09/17/2023 DTaP,Tdap,and Td Vaccines (3 - Td or [...] age to complete this topic Meningococcal B Vaccine Aged Out No l onger eligible based on patient's age to complete this topic RSV Immunization Patients Under 20 months Aged Out No longer eligible based on patient's age to complete this topic Varicella Vaccines Aged Out No longer eligible based on patient's age to complete this topic Procedures Procedure Name Priority Date/Time Associated Diagnosis Comments HEMOGLOBIN A1C Routine 10/07/2024 3:30 PM EDT Type II diabetes mellitus with neurological manifestations ([facility]/HCC V24, [facility]/HCC V28) MICROALBUMIN CREATININE URINE RATIO Routine 10/07/2024 3:30 PM EDT Type II diabetes mellitus with neurological manifestations (CMS/HCC V24, [facility]/HCC V28) Essential hypertension Class 3 severe obesity with serious comorbidity and body mass index (BMI) of 40.0 to 44.9 in adult, unspecified obesity type (CMS/HCC V24, CMS/HCC V28) XR HAND 3+ VIEWS RIGHT Routine 08/25/2024 9:48 AM EDT Trigger middle finger of right hand Essential hypertension COMPREHENSIVE METABOLIC PANEL Routine 06/05/2024 2:41 PM EST Type II diabetes mellitus with neurological manifestations (CMS/HCC V24, CMS/HCC V28) HM DIABETES EYE EXAM Routine 03/11/2024 LIPID PANEL Routine 03/05/2024 HM DIABETES FOOT EXAM Routine 03/05/2024 DEPRESSION SCREENING Routine 09/17/2023 COLONOSCOPY Routine 12/25/2022 HPV Routine 08/04/2013 from Last 3 Months or Most Recently Relevant to Health Maintenance Results * Microalbumin creatinine urine ratio (10/07/2024 3:30 PM EDT) Creatinine, Urine 157.0 mg/dL LAB CHEMISTRY METHOD 10/07/2024 7:38 PM EDT [facility] Microalb, Ur <5.0 0.0 - 29.0 mg/L LAB CHEMISTRY METHOD 10/07/2024 7:38 PM EDT [facility] Microalb/Creat Ratio <3 <30 mg/g creat LAB CHEMISTRY METHOD 10/07/2024 7:38 PM EDT [facility] Urine Urine specimen obtained by clean catch procedure / Unknown Non-blood Collection / Unknown 10/07/2024 3:30 PM EDT 10/07/2024 3:30 PM EDT us Soraida STOLL LAB URINE ORDERABLES Final Resul t [facility] [address] [place] [address], * (ABNORMAL) Hemoglobin A1c (10/07/2024 3:30 PM EDT) Hemoglobin A1C 7.8(H) <6.5 % LAB CHEMISTRY METHOD 10/07/2024 10:42 PM EDT [facility] Mean Bld Glu Estim. 177 mg/dL LAB CHEMISTRY METHOD 10/07/2024 10:42 PM EDT [facility] Blood Venous blood specimen / Unknown Venipuncture / Unknown 10/07/2024 3:30 PM EDT 10/07/2024 3:30 PM EDT us Soraida STOLL LAB BLOOD ORDERABLES Final Resul t [facility] [address] [facility] [place] [address], * XR Hand 3+ Views Right (08/25/2024 [...] Signed Date: 08/25/2024 10:52 ET Workstation ID: [id number] Transcribed By: Self Edit Transcribed Date: 08/25/2024 [...] Signed Date: 08/25/2024 10:52 ET Workstation ID: [id number] Transcribed By: Self Edit Transcribed Date: 08/25/2024 10:51 ET us Maynor Cheatham BREAKER TENDER IMG XR PROCEDURES Final Resu lt * (ABNORMAL) Comprehensive metabolic panel (06/05/2024 2:41 PM EST) Sodium 138 133 - 145 mmol/L LAB CHEMISTRY METHOD 06/05/2024 6:[address] [facility] Potassium 4.3 3.5 - 5.5 mmol/L LAB CHEMISTRY METHOD 06/05/2024 6:[address] [facility] Chloride 103 96 - 110 mmol/L LAB CHEMISTRY METHOD 06/05/2024 6:[address] [facility] CO2 30 21 - 32 mmol/L LAB CHEMISTRY METHOD 06/05/2024 6:[address] [facility] Anion Gap 5 3 - 11 LAB CHEMISTRY METHOD 06/05/2024 6:[address] [facility] Glucose 101(H) 70 - 100 mg/dL LAB CHEMISTRY METHOD 06/05/2024 6:[address] [facility] BUN 13 5 - 25 mg/dL LAB CHEMISTRY METHOD 06/05/2024 6:[address] [facility] Creatinine 1.03 0.50 - 1.10 mg/dL LAB CHEMISTRY METHOD 06/05/2024 6:[address] [facility] eGFR 66 >=60 mL/min/1. 73m2 LAB CHEMISTRY METHOD 06/05/2024 6:[address] [facility] Comment:Calculation based on the??Chronic Kidney Disease Epidemiology Collaboration (CKD-EPI) equation refit??without adjustment for race. BUN/Creatinine Ratio 12.6 LAB CHEMISTRY METHOD 06/05/2024 6:[address] [facility] Calcium 9.6 8.5 - 10.5 mg/dL LAB CHEMISTRY METHOD 06/05/2024 6:[address] [facility] AST (SGOT) 14 10 - 42 unit/L LAB CHEMISTRY METHOD 06/05/2024 6:[address] [facility] ALT (SGPT) 22 10 - 60 unit/L LAB CHEMISTRY METHOD 06/05/2024 6:[address] [facility] Alkaline Phosphatase 111 42 - 121 unit/L LAB CHEMISTRY METHOD 06/05/2024 6:[address] [facility] Total Protein 7.5 6.0 - 8.0 g/dL LAB CHEMISTRY METHOD 06/05/2024 6:[address] [facility] Albumin 3.7 3.2 - 5.0 g/dL LAB CHEMISTRY METHOD 06/05/2024 6:[address] [facility] Total Bilirubin 0.2 0.0 - 1.4 mg/dL LAB CHEMISTRY METHOD 06/05/2024 6:[address] [facility] Blood Venous blood specimen / Unknown Venipuncture / Unknown 06/05/2024 2:41 PM EST 06/05/2024 2:41 PM EST Soraida STOLL LAB BLOOD ORDERABLES Final Resul t [facility] [address] [place] [address], * Diabetes Eye Exam (03/11/2024) [facility] Diabetes: Annual Retina Eye Exam Abstracted Historical Provider MD HEALTH MAINTENANCE Final Result * Diabetes Foot Exam (03/05/2024) [facility] Diabetes: Annual Foot Exam Abstracted Historical Provider MD HEALTH MAINTENANCE Final Result * (ABNORMAL) Lipid panel (03/05/2024) [facility] LDL/HDL Ratio 4 0 - 4 Triglycerides 240(A) 0 - 150 mg/dL Cholesterol 190 0 - 200 mg/dL HDL 55 >=40 mg/dL LDL Cholesterol 87 0 - 100 mg/dL Blood Venous blood specimen / Unknown Historical Provider LAB BLOOD ORDERABLES Parris l Result * Depression Screening (09/17/2023) Pathologist [facility] Depression Screening Abstracted Historical Provider HEALTH MAINTENANCE Final Result * Colonoscopy (12/25/2022) Pathologist [facility] Colonoscopy No Interpretation , Abstracted Anatomical Region Laterality Modality Other Historical Provider HEALTH MAINTENANCE Final Result * Cervical Cancer Screening: HPV (08/04/2013) Pathologist [facility] Cervical Cancer Screening: HPV Not Detected, Abstracted Historical Provider HEALTH MAINTENANCE Final Result from Last 3 Months or Most Recently Relevant to Health Maintenance Insurance [facility] [place] [address] Care Teams Web Production Assistant Relationship Specialty Start Date End Date Tapan Mendoza MD [address] [place] [id number] PCP - General 08/16/22
[2024-10-22 16:46] LABS: HCG Quantitative < 2 mIU/mL
[2024-10-22 17:13] VITALS: BP 138/84; PULSE 92; RESP 14; TEMP 36.6; O2SAT 100
== END 2024-10-22 17:14 | disposition home or self-care (01) ==
PROVIDERS: Physician Assistant; Emergency Provider Emergency Medicine; PCP Family Medicine
DX: R07.89 Other chest pain (principal); R51.9 Headache, unspecified; I10 Essential (primary) hypertension; R11.0 Nausea; R42 Dizziness and giddiness; Z79.899 Other long term (current) drug therapy; Z03.818 Encounter for observation for suspected exposure to other biological agents ruled out
CPT/HCPCS: 0241U; 36415; 70450; 71046; 80048; 80076; 83735; 84443; 84484; 84702; 85025; 93005; 99284; 99285

== ENCOUNTER → 2024-10-22 13:17 | Outpatient (BNV) | payer OTHER, SELFPAY | PROVIDERS: Emergency Provider Emergency Medicine; PCP Family Medicine; Visit Provider Internal Medicine | DX: R94.31 Abnormal electrocardiogram [ECG] [EKG] (principal); R07.9 Chest pain, unspecified | CPT/HCPCS: 93010 ==

== ENCOUNTER → 2024-10-22 13:19 | Outpatient (BNV) | payer OTHER, SELFPAY | PROVIDERS: Emergency Provider Emergency Medicine; PCP Family Medicine; Visit Provider Radiology Diagnostic Radiology | DX: R51.9 Headache, unspecified (principal); R07.9 Chest pain, unspecified | CPT/HCPCS: 70450; 71046 ==